=== PATIENT | male | born 1960 | race Caucasian/White ===

== ENCOUNTER 2018-10-11 09:10 | Day surgery (SDC) | payer MEDICARE ==
--- NOTE | 2018-10-08 10:16 | HP ---
DATE OF SURGERY: 10/11/2018 ANTICIPATED PROCEDURE: Colonoscopy. HISTORY OF PRESENT ILLNESS: The patient presents for screening, 58 years old. He had one about 10 years ago that was negative. PAST MEDICAL HISTORY: Hypertension. CVA. Dysphagia. ALLERGIES: NONE. MEDICATIONS: Multiple. SOCIAL HISTORY: Negative. FAMILY HISTORY: Negative. REVIEW OF SYSTEMS: Negative. PHYSICAL EXAMINATION: VITAL SIGNS: Normal. CHEST: Clear. COR: Regular. ABDOMEN: No palpable organomegaly or mass. PLAN: Colonoscopy for screening.
[~2018-10-11 09:10] MED LIST: Lactated Ringers 1,000 ML IV ONE; Lactated Ringers 1,000 ML IV SCH
[2018-10-11] MEDS ORDERED: Ketamine HCl 50 MG/ML IV ONE (09:11)
[2018-10-11] MEDS ORDERED: DIPRIVAN 200 MG/20 ML IV ONE (09:11)
--- NOTE | 2018-10-11 12:38 | OP ---
SURGERY DATE/TIME: 10/11/2018 1142 PREOPERATIVE DIAGNOSIS: Ten year screening. POSTOPERATIVE DIAGNOSIS: One polyp mid sigmoid. PROCEDURE: Colonoscopy complete to cecum with hot polypectomy x1. SURGEON: Isidoro Sosa M.D. ANESTHESIA: MAC - Adolfo Dorado CRNA. COMPLICATIONS: None. CONDITION: Stable. INDICATION: A patient requiring evaluation. DESCRIPTION OF PROCEDURE: Taken to endoscopy. MAC sedation. Excellent anesthesia present. Anal digital examination satisfactory. Prostate satisfactory. Scope advanced to the cecum. Base of cecum, ileocecal valve and appendiceal orifice were all normal. Ascending, hepatic, transverse, splenic, descending, sigmoid. Mid sigmoid 8 mm polyp taken with hot biopsy forceps to extinction. Rectum and anus normal. IMPRESSION: Successful polypectomy x1. PLAN: Follow up three years. He can call for report on his polyp in five days.
[2018-10-11 12:57] VITALS: O2SAT 96
[2018-10-11 14:03] VITALS: BP 141/79; PULSE 76
== END 2018-10-11 14:10 | disposition home or self-care (01) ==
LOC: SDC 09:10
PROVIDERS: ATTEND Surgery
DX: Z12.11 Encounter for screening for malignant neoplasm of colon (principal); K63.5 Polyp of colon
CPT/HCPCS: 88305; J2704

== ENCOUNTER 2019-03-30 22:53 | Observation (INO) | payer MEDICARE ==
[2019-03-30] MEDS ORDERED: Sodium Chloride 0.9% 1000 ML 1,000 ML IV STA (23:02)
[2019-03-30] MEDS ORDERED: Pepcid 20 MG VIAL IV ONE ×2 (23:05→23:10)
[2019-03-30] MEDS ORDERED: Sodium Chloride 0.9% 1000 ML 1,000 ML ONE (23:10)
[2019-03-30 23:19] LABS: BASOPHIL % 0.5 % (0.0-0.4); Basophil (Absolute #) 0.03 (0-0.4); Eosinophil % 1.1 % (0.00-5.0); Eosinophil (Absolute #) 0.07 (0-0.5); Granulocyte Absolute (ANC) 3.66 (1.4-6.9); Granulocytes % 56.9 % (36.0-66.0); Hematocrit 32.5 % (42-50); Hemoglobin 11.1 gm/dl (12.5-18.0); Lymphocytes % 34.3 % (24.0-44.0); Mean Cell Volume 92.1 fl (78-100); Mean Corpuscular Hemoglobin 31.4 pg (26-32); Mean Corpuscular Hgb Concent. 34.2 g/dl (32-36); Mean Platelet Volume 10.8 fl (6-9.5); Monocyte (Absolute #) 0.46 (0.0-1.3); Monocytes % 7.2 % (0.0-12.0); Platelet Count 123 K/mm3 (150-450); Red Blood Count 3.53 M/mm3 (4.1-5.6); Red Cell Distribution Width 14.5 % (11.5-14.0); White Blood Count 6.4 K/mm3 (4.0-10.5)
[2019-03-30 23:31] LABS: ALBUMIN 1.4 g/dL (3.5-5.0); ALKALINE PHOSPHATASE 29 U/L (38-126); AMYLASE 39 U/L (30-110); ANION GAP 5.1 MEQ/L (5-15); BLOOD UREA NITROGEN 4 mg/dL (9-20); CHLORIDE 127 mmol/L (98-107); Creatinine 1 0.26 mg/dL (0.66-1.25); ETHYL ALCOHOL 113 mg/dL (0-10); Glucose 74 mg/dL (74-106); LIPASE 76 U/L (23-300); SGOT/AST 13 U/L (17-59); SGPT/ALT 12 U/L (0-50); SODIUM 141 mmol/L (137-145); Total Protein 3.2 g/dL (6.3-8.2)
[2019-03-30 23:38] LABS: Potassium 1.8 mmol/L (3.5-5.1)
[2019-03-30 23:39] LABS: ACETAMINOPHEN < 10 ug/ml (10-30); Calcium 3.5 mg/dL (8.4-10.2); Carbon Dioxide 10 mmol/L (22-30); SALICYLATE < 1.0 mg/dL (2-20)
--- NOTE | 2019-03-30 23:43 | ERPHSYRPT ---
- History of Present Illness Time Seen by Provider: 03/30/19 23:38 Source: patient, EMS Exam Limitations: clinical condition Patient Subjective Stated Complaint: per ems they were called out for pt passed out on the floor an unresponsive. states pt was awake and alert when they arrived. is intoxicated and vomiting. Triage Nursing Assessment: pt awake and answers questions approp. alert and oriented x3. pt arrive per ambulance and complete assist to stretcher. respirations nonlabored. pt vomiting on arrival. abd nontender with bowel sounds present x4, speech slurred. severe weakness noted to rt side. pt and ems states is his norm after cva. Physician History: pt was passed out after apparent drinking binge today- prior CVA , but pt states now no new weakness or symptoms; no focal deficits that are new on exam - residula right sided weakness from prior CVA; on blood thinner and will need CT head however; Timing/Duration: today Severity: moderate Associated Symptoms: nausea, vomiting Allergies/Adverse Reactions: No Known Drug Allergies Allergy (Verified 03/30/19 23:16) Home Medications: Aspirin EC 325 mg [Ecotrin 325 MG] 325 mg PO DAILY 09/13/15 [History] Acetaminophen [Tylenol Extra Strength] 500 mg PO Q4HPRN PRN 08/31/17 [History] Atorvastatin Calcium [Lipitor] 80 mg PO DAILY 08/31/17 [History] Lisinopril 5 mg [Zestril 5 MG] 5 mg PO DAILY 08/31/17 [History] Sertraline HCl 50 mg [Zoloft 50 mg Tablet] 100 mg PO DAILY 08/31/17 [History ] Tamsulosin HCl 0.4 mg [Flomax 0.4 MG] 0.4 mg PO DAILY 08/31/17 [History] Baclofen 10 mg [Lioresal 10 mg] 10 mg PO TID 03/30/19 [History] Hx Tetanus, Diphtheria Vaccination/Date Given: Yes (2017) Hx Influenza Vaccination/Date Given: No Hx Pneumococcal Vaccination/Date Given: No Immunizations Up to Date: Yes - Review of Systems Constitutional: No Fever, No Chills Eyes: No Symptoms Ears, Nose, & Throat: No Symptoms Respiratory: No Cough, No Dyspnea Cardiac: No Chest Pain, No Edema, No Syncope Abdominal/Gastrointestinal: Nausea, Vomiting, Other (trace positive emesis), No Abdominal Pain, No Diarrhea Genitourinary Symptoms: No Dysuria Musculoskeletal: No Back Pain, No Neck Pain Skin: No Rash Neurological: No Dizziness, No Focal Weakness (old rigth weakness without change - none new ), No Sensory Changes Psychological: Alcohol Abuse Endocrine: No Symptoms Hematologic/Lymphatic: No Symptoms Immunological/Allergic: No Symptoms All Other Systems: Reviewed and Negative - Past Medical History Pertinent Past Medical History: Yes Neurological History: Stroke ENT History: No Pertinent History Cardiac History: High Cholesterol, Hypertension Respiratory History: No Pertinent History Endocrine Medical History: No Pertinent History Musculoskeletal History: Fractures GI Medical History: No Pertinent History History: No Pertinent History Psycho-Social History: No Pertinent History Male Reproductive Disorders: Prostate Problems Other Medical History: REPORTS RHUEMATIC FEVER AND HEPITITIS WHEN HE WAS YOUNG BUT OTHERISE NONSIGNIFICANT. - Past Surgical History Past Surgical History: Yes Neuro Surgical History: No Pertinent History Cardiac: No Pertinent History Respiratory: No Pertinent History Gastrointestinal: No Pertinent History Genitourinary: No Pertinent History Musculoskeletal: Orthopedic Surgery Male Surgical History: No Pertinent History Other Surgical History: Colonoscopy - Social History Smoking Status: Current every day smoker How long have you smoked: 30 years Exposure to second hand smoke: Yes Drug Use: none Patient Lives Alone: Yes - Nursing Vital Signs Nursing Vital Signs: Initial Vital Signs Temperature 98.1 F 03/30/19 22:59 Pulse Rate 81 03/30/19 22:59 Respiratory Rate 18 03/30/19 22:59 Blood Pressure 127/89 03/30/19 22:59 O2 Sat by Pulse Oximetry 94 L 03/30/19 22:59 Pain Scale Pain Intensity 0 - Physical Exam General Appearance: no apparent distress, alert Eye Exam: PERRL/EOMI, eyes nml inspection Ears, Nose, Throat Exam: normal ENT inspection, TMs normal, pharynx normal, moist mucous membranes Neck Exam: normal inspection, non-tender, supple, full range of motion Respiratory Exam: normal breath sounds, lungs clear, No respiratory distress Cardiovascular Exam: regular rate/rhythm, normal heart sounds, normal peripheral pulses Gastrointestinal/Abdomen Exam: soft, normal bowel sounds, No tenderness, No mass Rectal Exam: deferred Back Exam: normal inspection, normal range of motion, No CVA tenderness, No vertebral tenderness Extremity Exam: normal inspection, normal range of motion, pelvis stable Neurologic Exam: alert, oriented x 3, cooperative, normal mood/affect, nml cerebellar function, nml station & gait, sensation nml, No motor deficits Skin Exam: normal color, warm, dry, No rash Lymphatic Exam: No adenopathy SpO2: 94 - Course Nursing assessment & vital signs reviewed: Yes EKG Interpreted by Me: Sinus Rhythm, NORMAL AXIS, NORMAL INTERVALS, Non- specific ST Changes - CT Exams Head CT Interpretation: Tele-radiologist Report, No/Intracranial Hemorrhag, Old Stroke, Other Ordered Tests: Active Orders 24 hr Category Date Time Status Clean Catch Urine Specimen STAT Care 03/30/19 23:02 Active EKG-ER Only STAT Care 03/30/19 23:02 Active IV Insertion STAT Care 03/30/19 23:09 Active Pulse Oximetry (ED) STAT Care 03/30/19 23:02 Active HEAD WITHOUT CONTRAST [CT] Stat Exams 03/30/19 23:01 Taken ACETAMINOPHEN Stat Lab 03/30/19 23:13 Completed AMYLASE Stat Lab 03/30/19 23:13 Completed CBC W DIFF Stat Lab 03/30/19 23:13 Completed CMP Stat Lab 03/30/19 23:13 Completed ETHYL ALCOHOL Stat Lab 03/30/19 23:13 Completed LIPASE Stat Lab 03/30/19 23:13 Completed Lactic Acid Stat Lab 03/30/19 23:11 Completed OCCULT BLOOD, EMESIS Stat Lab 03/30/19 23:09 Completed SALICYLATE Stat Lab 03/30/19 23:13 Completed TROPONIN Q3H Lab 03/30/19 23:13 Completed TROPONIN Q3H Lab 03/31/19 02:15 Ordered TROPONIN Q3H Lab 03/31/19 05:15 Ordered TROPONIN Q3H Lab 03/31/19 08:15 Ordered TROPONIN Q3H Lab 03/31/19 11:15 Ordered UA W/RFX UR CULTURE Stat Lab 03/31/19 02:12 Received Urine Triage Profile Stat Lab 03/31/19 02:12 Received Medication Summary Generic Name Dose Route Start Last Admin Trade Name Freq PRN Reason Stop Dose Admin Potassium Chloride 20 meq in 100 mls @ 50 mls/hr 03/30/19 23:45 03/31/19 00: 36 Potassium Chloride 20 Meq In Water 100ml IV 03/31/19 03:44 50 mls/hr Q2H SHERRI Administration Discontinued Medications Generic Name Dose Route Start Last Admin Trade Name Katerine PRN Reason Stop Dose Admin Famotidine 20 mg 03/30/19 23:05 03/30/19 23:14 Pepcid 20 Mg Vial IV 03/30/19 23:06 20 mg STAT ONE Administration Famotidine Confirm 03/30/19 23:10 Pepcid 20 Mg Vial Administered 03/30/19 23:11 Dose 20 mg IV .STK-MED ONE Sodium Chloride 1,000 mls @ 999 mls/hr 03/30/19 23:02 03/31/19 00:40 Sodium Chloride 0.9% 1000 Ml IV 03/31/19 00:02 Infused .Q1H1M STA Infusion Sodium Chloride Confirm 03/30/19 23:10 Sodium Chloride 0.9% 1000 Ml Administered 03/30/19 23:11 Dose 1,000 mls @ ud .ROUTE .STK-MED ONE Sodium Chloride Confirm 03/31/19 00:28 Sodium Chloride 0.9% 1000 Ml Administered 03/31/19 00:29 Dose 1,000 mls @ ud .ROUTE .STK-MED ONE Lab/Rad Data: Laboratory Result Diagrams 03/30/19 23:13 03/30/19 23:13 Laboratory Results 03/30/19 03/30/19 03/30/19 Range/Units 23:13 23:13 23:13 WBC 6.4 (4.0-10.5) K/mm3 RBC 3.53 L (4.1-5.6) M/mm3 Hgb 11.1 L (12.5-18.0) gm/dl Hct 32.5 L (42-50) % MCV 92.1 (78-100) fl MCH 31.4 (26-32) pg MCHC 34.2 (32-36) g/dl RDW 14.5 H (11.5-14.0) % Plt Count 123 L (150-450) K/mm3 MPV 10.8 H (6-9.5) fl Gran % 56.9 (36.0-66.0) % Eos # (Auto) 0.07 (0-0.5) Absolute Lymphs (auto) 2.20 (1.0-4.6) Absolute Monos (auto) 0.46 (0.0-1.3) Lymphocytes % 34.3 (24.0-44.0) % Monocytes % 7.2 (0.0-12.0) % Eosinophils % 1.1 (0.00-5.0) % Basophils % 0.5 (0.0-0.4) % Absolute Granulocytes 3.66 (1.4-6.9) Basophils # 0.03 (0-0.4) Sodium 141 (137-145) mmol/L Potassium 1.8 L* (3.5-5.1) mmol/L Chloride 127 H (98-107) mmol/L Carbon Dioxide 10 L* (22-30) mmol/L Anion Gap 5.1 (5-15) MEQ/L BUN 4 L (9-20) mg/dL Creatinine 0.26 L (0.66-1.25) mg/dL Estimated GFR > 60.0 ML/MIN Glucose 74 (74-106) mg/dL Lactic Acid (0.4-2.0) Calcium 3.5 L* (8.4-10.2) mg/dL Total Bilirubin 0.20 (0.2-1.3) mg/dL AST 13 L (17-59) U/L ALT 12 (0-50) U/L Alkaline Phosphatase 29 L (38-126) U/L Troponin I < 0.012 (0.000-0.034) ng/mL Serum Total Protein 3.2 L (6.3-8.2) g/dL Albumin 1.4 L (3.5-5.0) g/dL Amylase 39 (30-110) U/L Lipase 76 (23-300) U/L Emesis for Blood (Negative) Salicylates < 1.0 L (2-20) mg/dL Acetaminophen < 10 L (10-30) ug/ml Ethyl Alcohol 113 H (0-10) mg/dL 03/30/19 03/30/19 Range/Units 23:11 23:09 WBC (4.0-10.5) K/mm3 RBC (4.1-5.6) M/mm3 Hgb (12.5-18.0) gm/dl Hct (42-50) % MCV (78-100) fl MCH (26-32) pg MCHC (32-36) g/dl RDW (11.5-14.0) % Plt Count (150-450) K/mm3 MPV (6-9.5) fl Gran % (36.0-66.0) % Eos # (Auto) (0-0.5) Absolute Lymphs (auto) (1.0-4.6) Absolute Monos (auto) (0.0-1.3) Lymphocytes % (24.0-44.0) % Monocytes % (0.0-12.0) % Eosinophils % (0.00-5.0) % Basophils % (0.0-0.4) % Absolute Granulocytes (1.4-6.9) Basophils # (0-0.4) Sodium (137-145) mmol/L Potassium (3.5-5.1) mmol/L Chloride (98-107) mmol/L Carbon Dioxide (22-30) mmol/L Anion Gap (5-15) MEQ/L BUN (9-20) mg/dL Creatinine (0.66-1.25) mg/dL Estimated GFR ML/MIN Glucose (74-106) mg/dL Lactic Acid 1.7 (0.4-2.0) Calcium (8.4-10.2) mg/dL Total Bilirubin (0.2-1.3) mg/dL AST (17-59) U/L ALT (0-50) U/L Alkaline Phosphatase (38-126) U/L Troponin I (0.000-0.034) ng/mL Serum Total Protein (6.3-8.2) g/dL Albumin (3.5-5.0) g/dL Amylase (30-110) U/L Lipase (23-300) U/L Emesis for Blood POSITIVE (Negative) Salicylates (2-20) mg/dL Acetaminophen (10-30) ug/ml Ethyl Alcohol (0-10) mg/dL - Progress Progress: improved, re-examined Progress Note: 03/31/19 02:[address] Sosa and pt and all agree best to come in and have K restored ; also to control vomiting and monitor for GI bleed Discussed with : Sheila Will see patient in: hospital (observation) Counseled pt/family regarding: lab results, diagnosis, need for follow-up, rad results - Departure Departure Disposition: Observation Clinical Impression: Hypokalemia due to excessive gastrointestinal loss of potassium, minor GI bleed , Alcohol intoxication, old CVA Condition: Good Critical Care Time: No Referrals: SUZI PARSONS [Primary Care Provider] -
[2019-03-31] MEDS ORDERED: POTASSIUM CHLORIDE 20 mEq IN WATER 100ML 100 ML IV ONE ×2 (00:27→02:23)
[2019-03-31] MEDS ORDERED: Sodium Chloride 0.9% 1000 ML 1,000 ML ONE (00:28)
[2019-03-31] MEDS: POTASSIUM CHLORIDE 20 mEq IN WATER 100ML 20 MEQ/100 ML BAG IV SCH ×2 (00:36→02:24)
[2019-03-31 02:34] LABS: Amphetamine,Urine NEGATIVE (NEGATIVE); Barbiturate,Urine NEGATIVE (NEGATIVE); Benzodiazepine,Urine NEGATIVE (NEGATIVE); Cocaine,Urine NEGATIVE (NEGATIVE); Methadone,Urine NEGATIVE (NEGATIVE); Opiate,Urine NEGATIVE (NEGATIVE); PCP,Urine NEGATIVE (NEGATIVE); THC,Urine POSITIVE (NEGATIVE)
[2019-03-31 03:09] LABS: Appearance CLEAR (CLEAR); Bilirubin NEGATIVE (NEGATIVE); Blood NEGATIVE Ery/ul (0-5); Glucose NEGATIVE (NEGATIVE); Hyaline Casts 0-2 /LPF (0-2); Ketones NEGATIVE (NEGATIVE); Leukocyte Esterase NEGATIVE (NEGATIVE); Mucus SLIGHT /HPF (NEGATIVE); Nitrite NEGATIVE (NEGATIVE); Protein,Urine Dip NEGATIVE (Negative); Specific Gravity 1.005 (1.005-1.025); Urobilinogen NEGATIVE mg/dL (0-1)
[2019-03-31 03:12] LABS: Bacteria NONE SEEN /HPF (NEGATIVE); RBC NONE SEEN /HPF (0-2)
[2019-03-31] MEDS ORDERED: DILAUDID 2 MG INJECTION IV PRN (04:25)
[2019-03-31] MEDS ORDERED: Zofran 4 MG/2 ML VIAL IV PRN (04:25)
[2019-03-31] MEDS ORDERED: NovoLIN R SQ PRN (04:25)
[2019-03-31] MEDS ORDERED: Phenergan 25 MG INJ IM PRN (04:25)
[2019-03-31] MEDS ORDERED: TYLENOL 325 MG PO PRN (04:25)
[2019-03-31] MEDS ORDERED: DUONEB 0.5-3 MG/3 ml Neb IH PRN ×2 (04:25→05:01)
[2019-03-31] MEDS ORDERED: K-LYTE 25 MEQ PO ONE (04:25)
[2019-03-31] MEDS ORDERED: POTASSIUM CHLORIDE 20 mEq IN WATER 100ML 20 MEQ/100 ML BAG IV ONE (04:25)
--- NOTE | 2019-03-31 07:12 | XRAY ---
Indication: Loss of consciousness with fall. Multiple contiguous axial images obtained through the head without contrast. Comparison: September 13, 2015. Stable large left frontoparietal old infarct. No acute intracranial hemorrhage, hydrocephalus, or mass effect. Bony calvarium intact. Minimal mucosal thickening both ethmoid sinuses, left greater than right. Mastoid air cells are clear. Impression: 1. Stable old left frontoparietal infarct. 2. No acute intracranial abnormalities. 3. Minimal paranasal sinus disease. Comment: Preliminary interpretation was made by [facility]. No discrepancy. CTDI 45.41
[2019-03-31] MEDS: Pepcid 20 MG VIAL IV SCH ×2 (10:48→21:19)
[2019-03-31] MEDS: PROTONIX 40 MG IV IV SCH (10:50)
[2019-03-31] MEDS ORDERED: LIORESAL 10 MG PO PRN (11:00)
[2019-03-31] MEDS: Sodium Chloride 0.9% 1000 ML 1,000 ML IV SCH ×2 (11:14→21:37)
[2019-03-31] MEDS: ZOCOR 20MG PO SCH (11:28)
[2019-03-31] MEDS: ZOLOFT 50 MG TABLET PO SCH (11:28)
[2019-03-31] MEDS: Flomax 0.4 MG PO SCH (11:29)
[2019-03-31] MEDS: Zestril 5 MG PO SCH (11:29)
[2019-03-31] MEDS: ROCEPHIN 1 Gm-D5w 50 ml Bag** 1 G/50 ML IVPB IV SCH (13:06)
[2019-03-31] MEDS: Zithromax 250 MG TABLET PO SCH (13:06)
--- NOTE | 2019-03-31 14:38 | PCM.HP ---
History of Present Illness - Chief Complaint Chief Complaint: Mild GI bleed w/vomiting, alcohol overuse, hypokalemia History of Present Illness: is a very pleasant 58 year old male pt of Dr. Monet with PMHx CVA, HTN, and tobacco abuse who was brought to ER last night by EMS. Per the ER note , they were called for an unresponsive pt. He was awake however when they came to evaluate him. He was found intoxicated and vomiting. He also vomited in the ER and his brown vomitus was tested and found to be heme-positive. His alcohol level was 110 (nl 0-10) and his initial potassium was 1.8 (now 4.3). His platelets in ER were 123. Hgb 11.1. Pt tells me he remembers last night, that he "fell down" after drinking 4-5 "tall boys" (larger sized beers). He said he drinks about once a week but last night drank more than usual. He denies vomiting since coming to med surg. He states he's been sick the past 3d with vomiting and diarrhea, unsure about fever. He c/o periumbilical abd pain, 7-8/10, non radiating, which he can't characterize. It is constant. He took nyquil with some relief. This morning he is feeling better. He had a 10 year screening colonoscopy in October [address] Sosa, which resulted in polypectomy x 1. - Review of Systems Constitutional: Fatigue, No Fever (pt is unsure) Respiratory: Cough (prod x 3-4d), No Short Of Breath Cardiac: Edema (RLE edema chronic), No Chest Pain Abdominal/Gastrointestinal: Abdominal Pain, Vomiting, Diarrhea (x3d), No Hematochezia, No Melena Genitourinary Symptoms: No Dysuria, No Hematuria Neurological: Dizziness (occ), Other (syncope) Psychological: Depression (chronic d/t CVA with R sided deficit), No Anxiety, No Suicidal Ideations, No Homicidal Ideations All Other Systems: Reviewed and Negative Medications & Allergies Home Medications: Home Medication List Atorvastatin Calcium [Lipitor] 80 mg PO DAILY 08/31/17 [History Confirmed ] Lisinopril 5 mg [Zestril 5 MG] 5 mg PO DAILY 08/31/17 [History Confirmed 03/30/19] Sertraline HCl 50 mg [Zoloft 50 mg Tablet] 100 mg PO DAILY 08/31/17 [ History Confirmed 03/30/19] Tamsulosin HCl 0.4 mg [Flomax 0.4 MG] 0.4 mg PO DAILY 08/31/17 [History Confirmed 03/30/19] Baclofen 10 mg [Lioresal 10 mg] 10 mg PO TID 03/30/19 [History Confirmed 03/30/19] Allergies/Adverse Reactions: Allergies Allergy/AdvReac Type Severity Reaction Status Date / Time No Known Drug Allergies Allergy Verified 03/30/19 23:16 - Past Medical History Past Medical History: Yes Neurological History: Stroke ENT History: No Pertinent History Cardiac History: High Cholesterol, Hypertension Respiratory History: No Pertinent History Endocrine Medical History: No Pertinent History Musculoskelatal History: Fractures GI Medical History: No Pertinent History History: No Pertinent History Pyscho-Social History: No Pertinent History Male Reproductive Disorders: Prostate Problems Comment: REPORTS RHUEMATIC FEVER AND HEPITITIS WHEN HE WAS YOUNG BUT OTHERISE NONSIGNIFICANT. - Past Surgical History Past Surgical History: Yes Neuro Surgical History: No Pertinent History Cardiac History: No Pertinent History Respiratory Surgery: No Pertinent History GI Surgical History: No Pertinent History Genitourinary Surgical Hx: No Pertinent History Musculskeletal Surgical Hx: Orthopedic Surgery Male Surgical History: No Pertinent History Other Surgical History: Colonoscopy - Social History Smoking Status: Current every day smoker How long have you smoked: 30 years Exposure to second hand smoke: Yes Alcohol: Occasionally, Weekly Drug Use: marijuana - Physical Exam Vital Signs: Vital Signs - 24 hr Temp Pulse Resp BP Pulse Ox 03/31/19 12:00 98.3 F 93 H 20 120/78 94 L 03/31/19 08:00 98.2 F 93 H 20 118/74 93 L 03/31/19 07:00 101 H 16 95 03/31/19 05:28 97.5 F 84 20 117/77 95 03/31/19 05:15 95 03/31/19 05:07 88 20 95 03/31/19 04:25 95 03/31/19 04:04 94 H 18 101/77 95 03/31/19 03:04 91 H 16 124/82 94 L 03/31/19 02:17 94 L 03/30/19 23:09 94 L 03/30/19 22:59 98.1 F 81 18 127/89 94 L General Appearance: no apparent distress, alert, obese Neurologic Exam: oriented x 3, cooperative, normal mood/affect Eye Exam: eyes nml inspection Ears, Nose, Throat Exam: moist mucous membranes Neck Exam: normal inspection, non-tender, No lymphadenopathy Respiratory Exam: diminished breath sounds, prolonged expirations, No crackles/ rales, No rhonchi, No wheezing Cardiovascular Exam: normal heart sounds, irregular, No murmur Gastrointestinal/Abdomen Exam: soft, tenderness (suprapubic), No normal bowel sounds (hyperactive), No mass, No guarding, No rebound Back Exam: normal inspection, No rash Extremity Exam: No pedal edema, No swelling Skin Exam: warm, dry, other (face with generalized erythema), No rash Results - Labs Lab/Micro Results: Lab Results-Last 24 Hours 03/30/19 03/30/19 03/30/19 Range/Units 23:09 23:11 23:13 WBC 6.4 (4.0-10.5) K/mm3 RBC 3.53 L (4.1-5.6) M/mm3 Hgb 11.1 L (12.5-18.0) gm/dl Hct 32.5 L (42-50) % MCV 92.1 (78-100) fl MCH 31.4 (26-32) pg MCHC 34.2 (32-36) g/dl RDW 14.5 H (11.5-14.0) % Plt Count 123 L (150-450) K/mm3 MPV 10.8 H (6-9.5) fl Gran % 56.9 (36.0-66.0) % Eos # (Auto) 0.07 (0-0.5) Absolute Lymphs (auto) 2.20 (1.0-4.6) Absolute Monos (auto) 0.46 (0.0-1.3) Lymphocytes % 34.3 (24.0-44.0) % Monocytes % 7.2 (0.0-12.0) % Eosinophils % 1.1 (0.00-5.0) % Basophils % 0.5 (0.0-0.4) % Absolute Granulocytes 3.66 (1.4-6.9) Basophils # 0.03 (0-0.4) Sodium (137-145) mmol/L Potassium (3.5-5.1) mmol/L Chloride (98-107) mmol/L Carbon Dioxide (22-30) mmol/L Anion Gap (5-15) MEQ/L BUN (9-20) mg/dL Creatinine (0.66-1.25) mg/dL Estimated GFR ML/MIN Glucose (74-106) mg/dL Lactic Acid 1.7 (0.4-2.0) Calcium (8.4-10.2) mg/dL Total Bilirubin (0.2-1.3) mg/dL AST (17-59) U/L ALT (0-50) U/L Alkaline Phosphatase (38-126) U/L Troponin I (0.000-0.034) ng/mL Serum Total Protein (6.3-8.2) g/dL Albumin (3.5-5.0) g/dL Amylase (30-110) U/L Lipase (23-300) U/L Urine Color (YELLOW) Urine Appearance (CLEAR) Urine pH (5-6) Ur Specific [place] (1.005-1.025) Urine Protein (Negative) Urine Ketones (NEGATIVE) Urine Blood (0-5) Cali/ul Urine Nitrite (NEGATIVE) Urine Bilirubin (NEGATIVE) Urine Urobilinogen (0-1) mg/dL Ur Leukocyte Esterase (NEGATIVE) Urine WBC (Auto) (0-5) /HPF Urine RBC (Auto) (0-2) /HPF U Hyaline Cast (Auto) (0-2) /LPF U Epithel Cells (Auto) (FEW) /HPF Urine Bacteria (Auto) (NEGATIVE) /HPF Other Casts (Auto) (NEGATIVE) /LPF Urine Mucus (Auto) (NEGATIVE) /HPF Urine Culture Reflexed (NO) Urine Glucose (NEGATIVE) mg/dL Emesis for Blood POSITIVE (Negative) Salicylates (2-20) mg/dL Urine Opiates Level (NEGATIVE) Ur Methadone (NEGATIVE) Acetaminophen (10-30) ug/ml Urine Barbiturates (NEGATIVE) Ur Phencyclidine (PCP) (NEGATIVE) Urine Amphetamine (NEGATIVE) U Benzodiazepine Level (NEGATIVE) Urine Cocaine (NEGATIVE) Urine Marijuana (THC) (NEGATIVE) Ethyl Alcohol (0-10) mg/dL 03/30/19 03/30/19 03/31/19 Range/Units 23:13 23:13 02:12 WBC (4.0-10.5) K/mm3 RBC (4.1-5.6) M/mm3 Hgb (12.5-18.0) gm/dl Hct (42-50) % MCV (78-100) fl MCH (26-32) pg MCHC (32-36) g/dl RDW (11.5-14.0) % Plt Count (150-450) K/mm3 MPV (6-9.5) fl Gran % (36.0-66.0) % Eos # (Auto) (0-0.5) Absolute Lymphs (auto) (1.0-4.6) Absolute Monos (auto) (0.0-1.3) Lymphocytes % (24.0-44.0) % Monocytes % (0.0-12.0) % Eosinophils % (0.00-5.0) % Basophils % (0.0-0.4) % Absolute Granulocytes (1.4-6.9) Basophils # (0-0.4) Sodium 141 (137-145) mmol/L Potassium 1.8 L* (3.5-5.1) mmol/L Chloride 127 H (98-107) mmol/L Carbon Dioxide 10 L* (22-30) mmol/L Anion Gap 5.1 (5-15) MEQ/L BUN 4 L (9-20) mg/dL Creatinine 0.26 L (0.66-1.25) mg/dL Estimated GFR > 60.0 ML/MIN Glucose 74 (74-106) mg/dL Lactic Acid (0.4-2.0) Calcium 3.5 L* (8.4-10.2) mg/dL Total Bilirubin 0.20 (0.2-1.3) mg/dL AST 13 L (17-59) U/L ALT 12 (0-50) U/L Alkaline Phosphatase 29 L (38-126) U/L Troponin I < 0.012 (0.000-0.034) ng/mL Serum Total Protein 3.2 L (6.3-8.2) g/dL Albumin 1.4 L (3.5-5.0) g/dL Amylase 39 (30-110) U/L Lipase 76 (23-300) U/L Urine Color STRAW (YELLOW) Urine Appearance CLEAR (CLEAR) Urine pH 5.0 (5-6) Ur Specific [place] 1.005 (1.005-1.025) Urine Protein NEGATIVE (Negative) Urine Ketones NEGATIVE (NEGATIVE) Urine Blood NEGATIVE (0-5) [place]/ul Urine Nitrite NEGATIVE (NEGATIVE) Urine Bilirubin NEGATIVE (NEGATIVE) Urine Urobilinogen NEGATIVE (0-1) mg/dL Ur Leukocyte Esterase NEGATIVE (NEGATIVE) Urine WBC (Auto) NONE (0-5) /HPF Urine RBC (Auto) NONE SEEN (0-2) /HPF U Hyaline Cast (Auto) 0-2 (0-2) /LPF U Epithel Cells (Auto) NONE (FEW) /HPF Urine Bacteria (Auto) NONE SEEN (NEGATIVE) /HPF Other Casts (Auto) NEGATIVE (NEGATIVE) /LPF Urine Mucus (Auto) SLIGHT (NEGATIVE) /HPF Urine Culture Reflexed NO (NO) Urine Glucose NEGATIVE (NEGATIVE) mg/dL Emesis for Blood (Negative) Salicylates < 1.0 L (2-20) mg/dL Urine Opiates Level (NEGATIVE) Ur Methadone (NEGATIVE) Acetaminophen < 10 L (10-30) ug/ml Urine Barbiturates (NEGATIVE) Ur Phencyclidine (PCP) (NEGATIVE) Urine Amphetamine (NEGATIVE) U Benzodiazepine Level (NEGATIVE) Urine Cocaine (NEGATIVE) Urine Marijuana (THC) (NEGATIVE) Ethyl Alcohol 113 H (0-10) mg/dL 03/31/19 03/31/19 03/31/19 Range/Units 02:12 02:27 06:30 WBC (4.0-10.5) K/mm3 RBC (4.1-5.6) M/mm3 Hgb (12.5-18.0) gm/dl Hct (42-50) % MCV (78-100) fl MCH (26-32) pg MCHC (32-36) g/dl RDW (11.5-14.0) % Plt Count (150-450) K/mm3 MPV (6-9.5) fl Gran % (36.0-66.0) % Eos # (Auto) (0-0.5) Absolute Lymphs (auto) (1.0-4.6) Absolute Monos (auto) (0.0-1.3) Lymphocytes % (24.0-44.0) % Monocytes % (0.0-12.0) % Eosinophils % (0.00-5.0) % Basophils % (0.0-0.4) % Absolute Granulocytes (1.4-6.9) Basophils # (0-0.4) Sodium (137-145) mmol/L Potassium (3.5-5.1) mmol/L Chloride (98-107) mmol/L Carbon Dioxide (22-30) mmol/L Anion Gap (5-15) MEQ/L BUN (9-20) mg/dL Creatinine (0.66-1.25) mg/dL Estimated GFR ML/MIN Glucose (74-106) mg/dL Lactic Acid (0.4-2.0) Calcium (8.4-10.2) mg/dL Total Bilirubin (0.2-1.3) mg/dL AST (17-59) U/L ALT (0-50) U/L Alkaline Phosphatase (38-126) U/L Troponin I < 0.012 < 0.012 (0.000-0.034) ng/mL Serum Total Protein (6.3-8.2) g/dL Albumin (3.5-5.0) g/dL Amylase (30-110) U/L Lipase (23-300) U/L Urine Color (YELLOW) Urine Appearance (CLEAR) Urine pH (5-6) Ur Specific [place] (1.005-1.025) Urine Protein (Negative) Urine Ketones (NEGATIVE) Urine Blood (0-5) [place]/ul Urine Nitrite (NEGATIVE) Urine Bilirubin (NEGATIVE) Urine Urobilinogen (0-1) mg/dL Ur Leukocyte Esterase (NEGATIVE) Urine WBC (Auto) (0-5) /HPF Urine RBC (Auto) (0-2) /HPF U Hyaline Cast (Auto) (0-2) /LPF U Epithel Cells (Auto) (FEW) /HPF Urine Bacteria (Auto) (NEGATIVE) /HPF Other Casts (Auto) (NEGATIVE) /LPF Urine Mucus (Auto) (NEGATIVE) /HPF Urine Culture Reflexed (NO) Urine Glucose (NEGATIVE) mg/dL Emesis for Blood (Negative) Salicylates (2-20) mg/dL Urine Opiates Level NEGATIVE (NEGATIVE) Ur Methadone NEGATIVE (NEGATIVE) Acetaminophen (10-30) ug/ml Urine Barbiturates NEGATIVE (NEGATIVE) Ur Phencyclidine (PCP) NEGATIVE (NEGATIVE) Urine Amphetamine NEGATIVE (NEGATIVE) U Benzodiazepine Level NEGATIVE (NEGATIVE) Urine Cocaine NEGATIVE (NEGATIVE) Urine Marijuana (THC) POSITIVE (NEGATIVE) Ethyl Alcohol (0-10) mg/dL 03/31/19 03/31/19 03/31/19 Range/Units 06:30 08:40 11:40 WBC (4.0-10.5) K/mm3 RBC (4.1-5.6) M/mm3 Hgb (12.5-18.0) gm/dl Hct (42-50) % MCV (78-100) fl MCH (26-32) pg MCHC (32-36) g/dl RDW (11.5-14.0) % Plt Count (150-450) K/mm3 MPV (6-9.5) fl Gran % (36.0-66.0) % Eos # (Auto) (0-0.5) Absolute Lymphs (auto) (1.0-4.6) Absolute Monos (auto) (0.0-1.3) Lymphocytes % (24.0-44.0) % Monocytes % (0.0-12.0) % Eosinophils % (0.00-5.0) % Basophils % (0.0-0.4) % Absolute Granulocytes (1.4-6.9) Basophils # (0-0.4) Sodium (137-145) mmol/L Potassium 4.3 D (3.5-5.1) mmol/L Chloride (98-107) mmol/L Carbon Dioxide (22-30) mmol/L Anion Gap (5-15) MEQ/L BUN (9-20) mg/dL Creatinine (0.66-1.25) mg/dL Estimated GFR ML/MIN Glucose (74-106) mg/dL Lactic Acid (0.4-2.0) Calcium (8.4-10.2) mg/dL Total Bilirubin (0.2-1.3) mg/dL AST (17-59) U/L ALT (0-50) U/L Alkaline Phosphatase (38-126) U/L Troponin I < 0.012 < 0.012 (0.000-0.034) ng/mL Serum Total Protein (6.3-8.2) g/dL Albumin (3.5-5.0) g/dL Amylase (30-110) U/L Lipase (23-300) U/L Urine Color (YELLOW) Urine Appearance (CLEAR) Urine pH (5-6) Ur Specific [place] (1.005-1.025) Urine Protein (Negative) Urine Ketones (NEGATIVE) Urine Blood (0-5) [place]/ul Urine Nitrite (NEGATIVE) Urine Bilirubin (NEGATIVE) Urine Urobilinogen (0-1) mg/dL Ur Leukocyte Esterase (NEGATIVE) Urine WBC (Auto) (0-5) /HPF Urine RBC (Auto) (0-2) /HPF U Hyaline Cast (Auto) (0-2) /LPF U Epithel Cells (Auto) (FEW) /HPF Urine Bacteria (Auto) (NEGATIVE) /HPF Other Casts (Auto) (NEGATIVE) /LPF Urine Mucus (Auto) (NEGATIVE) /HPF Urine Culture Reflexed (NO) Urine Glucose (NEGATIVE) mg/dL Emesis for Blood (Negative) Salicylates (2-20) mg/dL Urine Opiates Level (NEGATIVE) Ur Methadone (NEGATIVE) Acetaminophen (10-30) ug/ml Urine Barbiturates (NEGATIVE) Ur Phencyclidine (PCP) (NEGATIVE) Urine Amphetamine (NEGATIVE) U Benzodiazepine Level (NEGATIVE) Urine Cocaine (NEGATIVE) Urine Marijuana (THC) (NEGATIVE) Ethyl Alcohol (0-10) mg/dL 03/31/19 Range/Units 12:12 WBC (4.0-10.5) K/mm3 RBC (4.1-5.6) M/mm3 Hgb (12.5-18.0) gm/dl Hct (42-50) % MCV (78-100) fl MCH (26-32) pg MCHC (32-36) g/dl RDW (11.5-14.0) % Plt Count (150-450) K/mm3 MPV (6-9.5) fl Gran % (36.0-66.0) % Eos # (Auto) (0-0.5) Absolute Lymphs (auto) (1.0-4.6) Absolute Monos (auto) (0.0-1.3) Lymphocytes % (24.0-44.0) % Monocytes % (0.0-12.0) % Eosinophils % (0.00-5.0) % Basophils % (0.0-0.4) % Absolute Granulocytes (1.4-6.9) Basophils # (0-0.4) Sodium (137-145) mmol/L Potassium (3.5-5.1) mmol/L Chloride (98-107) mmol/L Carbon Dioxide (22-30) mmol/L Anion Gap (5-15) MEQ/L BUN (9-20) mg/dL Creatinine (0.66-1.25) mg/dL Estimated GFR ML/MIN Glucose (74-106) mg/dL Lactic Acid (0.4-2.0) Calcium (8.4-10.2) mg/dL Total Bilirubin (0.2-1.3) mg/dL AST (17-59) U/L ALT (0-50) U/L Alkaline Phosphatase (38-126) U/L Troponin I (0.000-0.034) ng/mL Serum Total Protein (6.3-8.2) g/dL Albumin (3.5-5.0) g/dL Amylase (30-110) U/L Lipase (23-300) U/L Urine Color (YELLOW) Urine Appearance (CLEAR) Urine pH (5-6) Ur Specific [place] (1.005-1.025) Urine Protein (Negative) Urine Ketones (NEGATIVE) Urine Blood (0-5) [place]/ul Urine Nitrite (NEGATIVE) Urine Bilirubin (NEGATIVE) Urine Urobilinogen (0-1) mg/dL Ur Leukocyte Esterase (NEGATIVE) Urine WBC (Auto) (0-5) /HPF Urine RBC (Auto) (0-2) /HPF U Hyaline Cast (Auto) (0-2) /LPF U Epithel Cells (Auto) (FEW) /HPF Urine Bacteria (Auto) (NEGATIVE) /HPF Other Casts (Auto) (NEGATIVE) /LPF Urine Mucus (Auto) (NEGATIVE) /HPF Urine Culture Reflexed (NO) Urine Glucose (NEGATIVE) mg/dL Emesis for Blood (Negative) Salicylates (2-20) mg/dL Urine Opiates Level (NEGATIVE) Ur Methadone (NEGATIVE) Acetaminophen (10-30) ug/ml Urine Barbiturates (NEGATIVE) Ur Phencyclidine (PCP) (NEGATIVE) Urine Amphetamine (NEGATIVE) U Benzodiazepine Level (NEGATIVE) Urine Cocaine (NEGATIVE) Urine Marijuana (THC) (NEGATIVE) Ethyl Alcohol < 10 (0-10) mg/dL - Radiology Impressions Radiology Exams & Impressions: Radiology Procedures Category Date Time Status HEAD WITHOUT CONTRAST [CT] Stat Exams 03/30/19 23:01 Completed - Other Procedures and Tests Respiratory Therapy 03/31/19 05:03 Respiratory Therapy Assessment DAILY Assessment/Plan (1) GI bleed Current Visit: Yes Status: Acute Qualifiers: GI bleed type/associated pathology: gastritis Gastritis type: alcoholic Qualified Code(s): K29.21 - Alcoholic gastritis with bleeding Assessment & Plan: Likely just mild alcoholic gastritis, but we did discuss the possibility of varices and GI bleeding that could end in . He did agree to the EGD tomorrow and I have contacted Dr. Stone. On IV protonix. No more vomiting/ bleeding since he was in the ER. Code(s): K92.2 - GASTROINTESTINAL HEMORRHAGE, UNSPECIFIED (2) COPD exacerbation Current Visit: Yes Status: Acute Assessment & Plan: Started IV rocephin and zithromax (day #1). Code(s): J44.1 - CHRONIC OBSTRUCTIVE PULMONARY DISEASE W (ACUTE) EXACERBATION (3) Diarrhea Current Visit: Yes Status: Acute Qualifiers: Diarrhea type: unspecified type Qualified Code(s): R19.7 - Diarrhea, unspecified Assessment & Plan: ordered GI panel. Code(s): R19.7 - DIARRHEA, UNSPECIFIED (4) Alcohol intoxication Current Visit: Yes Status: Acute Qualifiers: Complication of substance-induced condition: uncomplicated Qualified Code(s ): F10.920 - Alcohol use, unspecified with intoxication, uncomplicated Assessment & Plan: rechecking alcohol level. I also consulted [facility], because when the alcohol use is enough to send the pt to the hospital, it's a problem that they may want help with. (5) Hypokalemia due to excessive gastrointestinal loss of potassium Current Visit: Yes Status: Acute Assessment & Plan: corrected. Code(s): E87.6 - HYPOKALEMIA (6) History of CVA (cerebrovascular accident) Current Visit: Yes Status: Chronic Code(s): Z86.73 - PRSNL HX OF TIA (TIA), AND CEREB INFRC W/O RESID DEFICITS
[2019-04-01] MEDS: Lactated Ringers 1,000 ML IV SCH ×2 (05:29→17:16)
[2019-04-01 05:41] LABS: BASOPHIL % 0.4 % (0.0-0.4); Basophil (Absolute #) 0.03 (0-0.4); Eosinophil % 1.9 % (0.00-5.0); Eosinophil (Absolute #) 0.13 (0-0.5); Granulocyte Absolute (ANC) 3.36 (1.4-6.9); Hematocrit 46.2 % (42-50); Hemoglobin 15.8 gm/dl (12.5-18.0); Lymphocyte (Absolute #) 2.91 (1.0-4.6); Lymphocytes % 41.6 % (24.0-44.0); Mean Cell Volume 90.4 fl (78-100); Mean Corpuscular Hemoglobin 30.9 pg (26-32); Mean Corpuscular Hgb Concent. 34.2 g/dl (32-36); Mean Platelet Volume 10.8 fl (6-9.5); Monocyte (Absolute #) 0.57 (0.0-1.3); Monocytes % 8.1 % (0.0-12.0); Platelet Count 163 K/mm3 (150-450); Red Blood Count 5.11 M/mm3 (4.1-5.6); Red Cell Distribution Width 15.3 % (11.5-14.0)
[2019-04-01 06:01] LABS: ALBUMIN 3.4 g/dL (3.5-5.0); ALKALINE PHOSPHATASE 87 U/L (38-126); ANION GAP 9.8 MEQ/L (5-15); BLOOD UREA NITROGEN 7 mg/dL (9-20); CHLORIDE 110 mmol/L (98-107); Calcium 9.2 mg/dL (8.4-10.2); Carbon Dioxide 24 mmol/L (22-30); Creatinine 1 0.84 mg/dL (0.66-1.25); Glucose 110 mg/dL (74-106); Potassium 4.2 mmol/L (3.5-5.1); SGOT/AST 22 U/L (17-59); SGPT/ALT 22 U/L (0-50); SODIUM 140 mmol/L (137-145); Total Protein 6.3 g/dL (6.3-8.2)
[2019-04-01] MEDS ORDERED: DIPRIVAN 200 MG/20 ML IV ONE (08:21)
[2019-04-01] MEDS ORDERED: Ketamine HCl 50 MG/ML ONE (08:21)
--- NOTE | 2019-04-01 08:47 | OP ---
SURGERY DATE/TIME: 04/01/201915 PREOPERATIVE DIAGNOSIS: GI bleed. POSTOPERATIVE DIAGNOSES: 1) Small antral ulcer. 2) Hiatal hernia. 3) Gastritis. PROCEDURE: Esophagogastroduodenoscopy with cold forceps biopsy. SURGEON: Dr. Stone. ANESTHESIA: Medications were given by the anesthesia department. BRIEF HISTORY: The patient is a 58 year old white male patient known alcoholic, has been vomiting this day. His heme-test of his emesis was positive. The patient was felt to need to have endoscopic evaluation. He ws appraised of the risks of the procedure including the risk of perforation, phlebitis, untoward reaction to medication, bleeding and missed lesions. The patient verbalized his understanding and desired to have the procedure performed. DESCRIPTION OF PROCEDURE: The patient was given the medications by the anesthesia department. He had continuous pulse oximetry, ECG monitoring, intermittent blood pressure monitoring and tidal CO2 monitoring during the examination. He was placed in the left lateral decubitus position. A bite block was placed and the flexible Olympus gastroscope was used to intubate the oropharynx. A view of the larynx was obtained and was normal. The scope was easily passed in the esophagus which was normal throughout its length. No obvious esophageal varices were noted. The stomach was entered where normal gastric rugal folds were seen and these distended nicely with insufflation of air. The scope was passed along the greater curvature of the stomach to the pylorus. There appeared to be a small aphthous ulcer present noted to be benign in appearance with no active bleeding. The pylorus appeared to be widely patent. We inspected the duodenum and found no obvious bleeding or ulcers here. The scope is withdrawn towards the stomach. A retroflex view was obtained of the lesser curvature, fundus and cardia regions of the stomach and there was noted a hiatal hernia. The scope was then redirected towards the gastric antrum and biopsies were obtained to rule out the presence of Helicobacter pylori-type organisms. The scope was removed from the patient who tolerated the procedure well and was sent back to the [facility] in good condition.
[2019-04-01] MEDS ORDERED: NON-FORMULARY ITEM (Atorvastatin Calcium [Lipitor] 80 MG) PO SCH (10:00)
[2019-04-01] MEDS: Flomax 0.4 MG PO SCH (10:17)
[2019-04-01] MEDS: Zestril 5 MG PO SCH (10:18)
[2019-04-01] MEDS: ZOLOFT 50 MG TABLET PO SCH (10:18)
[2019-04-01] MEDS: ZOCOR 20MG PO SCH (10:18)
[2019-04-01] MEDS: Zithromax 250 MG TABLET PO SCH (10:18)
[2019-04-01] MEDS: Pepcid 20 MG VIAL IV SCH ×2 (10:20→21:18)
[2019-04-01] MEDS: PROTONIX 40 MG IV IV SCH (10:22)
[2019-04-01] MEDS: ROCEPHIN 1 Gm-D5w 50 ml Bag** 1 G/50 ML IVPB IV SCH (10:23)
[2019-04-01 16:47] LABS: Adenovirus F 40/41 NEGATIVE (NEGATIVE); Astrovirus NEGATIVE (NEGATIVE); C. Difficile Organism NEGATIVE (NEGATIVE); Campylobacter NEGATIVE (NEGATIVE); Cryptosporidium NEGATIVE (NEGATIVE); Cyclospora cayentanensis NEGATIVE (NEGATIVE); Entamoeaba histolytica NEGATIVE (NEGATIVE); Enteroaggregative E.coli NEGATIVE (NEGATIVE); Enteropathogenic E.coli NEGATIVE (NEGATIVE); Enterotoxigenic E.coli NEGATIVE (NEGATIVE); Giardia lamblia NEGATIVE (NEGATIVE); Norovirus GI/GII NEGATIVE (NEGATIVE); Plesiomonas shigelloides NEGATIVE (NEGATIVE); Rotavirus A NEGATIVE (NEGATIVE); Salmonella NEGATIVE (NEGATIVE); Sapovirus NEGATIVE (NEGATIVE); Shiga-like toxin prod.E.coli NEGATIVE (NEGATIVE); Vibrio NEGATIVE (NEGATIVE); Vibrio cholerae NEGATIVE (NEGATIVE); Yersinia enterocolitica NEGATIVE (NEGATIVE)
[2019-04-01] MEDS ORDERED: ZOLOFT 50 MG TABLET PO SCH (16:49)
--- NOTE | 2019-04-01 16:49 | PCM.NOTE ---
Date and Time: 04/01/19 1643 Subjective Assessment: Patient reports he doesn't have much appetite right now. He reports he has not been up out of bed yet. His motorized scooter is not here as he was brought by ambulance. He reports that he is depressed but denies SI. He is agreeable to starting a medication and will think about counseling too. He is agreeable to doing a face to face with [facility]. He reports he has been drinking alcohol due to being depressed and doesn't want to quite the alcohol. He reports stool x 3 since admission and stated stool was dark in color. He had upper endoscopy with Dr. Stone with AM with report of small gastric ulcer, gastritis, and hiatal hernia. He feels like he will be able to take care of himself at home but is having trouble with rides to doctor's appointments. Objective Exam General Appearance: no apparent distress, other (lying flat in bed; right side with limited movement which is his baseline.) Neurologic Exam: alert, cooperative Skin Exam: normal color, warm, dry Respiratory Exam: normal breath sounds, lungs clear, No crackles/rales, No rhonchi, No wheezing Cardiovascular Exam: regular rate/rhythm, normal heart sounds, No murmur, No friction rub, No gallop Gastrointestinal/Abdomen Exam: soft, normal bowel sounds, No tenderness, No distention, No mass Extremity Exam: normal inspection, other (trace edema, no c/c) OBJECTIVE DATA Vital Signs: Vital Signs - 24 hr Temp Pulse Resp BP BP Pulse Ox 04/01/19 16:00 20 04/01/19 12:00 20 04/01/19 10:30 89 135/74 04/01/19 08:00 98.1 F 81 20 142/85 96 04/01/19 07:55 93 L 04/01/19 05:46 98.5 F 78 20 150/83 93 L 04/01/19 04:10 98.5 F 78 20 150/83 93 L 04/01/19 00:10 98.4 F 95 H 19 139/68 96 03/31/19 20:12 82 22 95 03/31/19 20:00 98.6 F 88 22 130/80 95 Pain Assessment - Last Documented Pain Intensity 0 Pain Scale Used 0-10 Pain Scale Intake and Output: Intake & Output 08/06/0803/31/19 04/01/19 04/02/19 06:59 06:59 06:59 06:59 Intake Total 5145 840 Output Total 7105 7070 Balance 3533 -1410 Weight 127.6 kg 122.5 kg Lab Results: Lab Results-Last 24 Hours 04/01/19 04/01/19 Range/Units 05:25 05:25 WBC 7.0 (4.0-10.5) K/mm3 RBC 5.11 (4.1-5.6) M/mm3 Hgb 15.8 D (12.5-18.0) gm/dl Hct 46.2 (42-50) % MCV 90.4 (78-100) fl MCH 30.9 (26-32) pg MCHC 34.2 (32-36) g/dl RDW 15.3 H (11.5-14.0) % Plt Count 163 (150-450) K/mm3 MPV 10.8 H (6-9.5) fl Gran % 48.0 (36.0-66.0) % Eos # (Auto) 0.13 (0-0.5) Absolute Lymphs (auto) 2.91 (1.0-4.6) Absolute Monos (auto) 0.57 (0.0-1.3) Lymphocytes % 41.6 (24.0-44.0) % Monocytes % 8.1 (0.0-12.0) % Eosinophils % 1.9 (0.00-5.0) % Basophils % 0.4 (0.0-0.4) % Absolute Granulocytes 3.36 (1.4-6.9) Basophils # 0.03 (0-0.4) Sodium 140 (137-145) mmol/L Potassium 4.2 (3.5-5.1) mmol/L Chloride 110 H D (98-107) mmol/L Carbon Dioxide 24 (22-30) mmol/L Anion Gap 9.8 (5-15) MEQ/L BUN 7 L (9-20) mg/dL Creatinine 0.84 (0.66-1.25) mg/dL Estimated GFR > 60.0 ML/MIN Glucose 110 H (74-106) mg/dL Calcium 9.2 D (8.4-10.2) mg/dL Total Bilirubin 0.80 (0.2-1.3) mg/dL AST 22 (17-59) U/L ALT 22 (0-50) U/L Alkaline Phosphatase 87 (38-126) U/L Serum Total Protein 6.3 (6.3-8.2) g/dL Albumin 3.4 L (3.5-5.0) g/dL Radiology Exams: Radiology Procedures Category Date Time Status HEAD WITHOUT CONTRAST [CT] Stat Exams 03/30/19 23:01 Completed Multi-Disciplinary Progress Notes: Multi-Disciplinary Progress Notes 04/01/19 13:24 Case Management Note by Cierra Nielsen ATTEMPTED TO REACH CAITLIN, PT'S SON, NO ANSWER AT EITHER OF THE NUMBERS THAT ARE LISTED FOR HIM. Initialized on 04/01/19 13:24 - END OF NOTE 04/01/19 13:16 Case Management Note by Cierra Nielsen CALL TO HELP AT HOME, SPOKE WITH JOANA. Initialized on 04/01/19 13:16 - END OF NOTE 04/01/19 13:02 Case Management Note by Cierra Nielsen DISCHARGE PLAN REVIEWED WITH PT. REPORTS THAT HE LIVES AT [facility] AND HAS A MOTORIZED WHEELCHAIR. REPORTS THAT HE CAN RUN TO THE GROCERY STORE WITHOUT DIFFICULTY. ALSO, HAS A WALKER THAT HE USES. PT REPORTS THAT HE HAS HELP AT HOME SERVICES, A HOMEMAKER THAT COMES IN WEEKLY TO CLEAN HIS APARTMENT AND ONCE A MONTH TO TAKE HIM TO THE GROCERY STORE, HE ALSO, HAS AN AIDE THAT COMES IN ON AND TO ASSIST WITH SHOWERS. REPORTS THAT HIS [employer] MERCHANT HELPS HIM FROM TIME TO TIME WITH RIDES, ETC, BUT ALSO, REPORTS THAT HE IS HAVING SOME HEALTH ISSUES OF HIS OWN. REPORTS THAT HE HAS MEDICAID TRANSPORTATION BUT HE HAS BEEN HAVING DIFFICULTY WITH RIDES, REPORTS THAT HE MAKES APPOINTMENTS, AND THEN THEY CALL HIM AND TELL HIM THAT THEY CAN NOT TAKE HIM. DISCUSSED THAT HE NEEDED TO CALL [facility] TO SCHEDULE ALL MEDICAID TRANSPORTATION, AND PT REPORTS THAT HE HAS CALLED THEM AND HAS THEIR NUMBER, AND THIS IS WHO HE IS HAVING TROUBLE WITH. ENCOURAGED PT TO CALL MEDICAID AND REPORT THE DIFFICULTIES. ALSO, DISCUSSED RIDE SOLUTIONS, IF HE COULD AFFORD TO PAY FOR RIDES IN TOWN TO DR. RIOS. PT REPORTS THAT HE WOULD LIKE TO HAVE THAT NUMBER FOR A BACKUP. DISCUSSED THAT THESE RIDES TOO NEED TO BE MADE IN ADVANCE. PT VERBALIZED UNDERSTANDING. PT REPORTS THAT HIS SON, CAITLIN, LIVES IN [facility], AND HE IS UNSURE IF CAITLIN IS AWARE THAT HE IS HERE, REPORTS THAT HIS SON IS ALSO HIS POA. REQUESTED THAT THIS OFFICE TECHNOLOGIST TRY TO REACH HIS SON AND LET HIM KNOW HE IS HERE. DENIES ADDNL NEEDS AT PRESENT TIME. WILL CALL HELP AT HOME TO NOTIFY THAT PT IS HERE, AND WILL ALSO, TRY TO REACH PT'S SON. Initialized on 04/01/19 13:02 - END OF NOTE Assessment/Plan (1) Upper GI bleed Current Visit: Yes Status: Acute Assessment & Plan: Continue protonix and pepcid. Will recheck labs in AM; s/p upper endoscopy with Dr. Stone. Code(s): K92.2 - GASTROINTESTINAL HEMORRHAGE, UNSPECIFIED (2) Gastric ulcer Current Visit: Yes Status: Acute Qualifiers: Gastric ulcer chronicity: acute Code(s): K25.9 - GASTRIC ULCER, UNSP ACUTE OR CHRONIC, W/O HEMOR OR PERF (3) Diarrhea Current Visit: Yes Status: Acute Qualifiers: Diarrhea type: unspecified type Qualified Code(s): R19.7 - Diarrhea, unspecified Assessment & Plan: GI Panel ordered. May be due to antibiotics for copd. Code(s): R19.7 - DIARRHEA, UNSPECIFIED (4) History of CVA (cerebrovascular accident) Current Visit: Yes Status: Chronic Assessment & Plan: Continue home medication. He is at his baseline. Has support in place as described in logistics planner's note. Plan to restart aspirin tomorrow. He is on aspirin according to our outpatient record. Code(s): Z86.73 - PRSNL HX OF TIA (TIA), AND CEREB INFRC W/O RESID DEFICITS (5) Alcohol abuse Current Visit: Yes Status: Chronic Assessment & Plan: Recommended AA meetings but he is not interested. Code(s): F10.10 - ALCOHOL ABUSE, UNCOMPLICATED (6) Depression Current Visit: Yes Status: Acute Qualifiers: Depression Type: major depressive disorder Active/Remission status: currently active Psychotic features: without psychotic features Assessment & Plan: I had discussed fluoxetine with patient but he is already on zoloft so will increase this from 50 mg to 100 mg and follow up as outpatient. Code(s): F32.9 - MAJOR DEPRESSIVE DISORDER, SINGLE EPISODE, UNSPECIFIED (7) DVT prophylaxis Current Visit: Yes Status: Acute Assessment & Plan: SCD and snow hose. Code(s): Z29.9 - ENCOUNTER FOR PROPHYLACTIC MEASURES, UNSPECIFIED (8) COPD exacerbation Current Visit: Yes Status: Acute Assessment & Plan: started on ceftriaxone and azithromycin. will continue but if continues to do well tomorrow may stop one of the antibiotics as it may be causing diarrhea too. Code(s): J44.1 - CHRONIC OBSTRUCTIVE PULMONARY DISEASE W (ACUTE) EXACERBATION
[2019-04-02 05:26] LABS: BASOPHIL % 0.3 % (0.0-0.4); Basophil (Absolute #) 0.02 (0-0.4); Eosinophil (Absolute #) 0.23 (0-0.5); Granulocyte Absolute (ANC) 3.94 (1.4-6.9); Hematocrit 45.7 % (42-50); Hemoglobin 15.6 gm/dl (12.5-18.0); Lymphocyte (Absolute #) 2.86 (1.0-4.6); Mean Cell Volume 90.3 fl (78-100); Mean Corpuscular Hemoglobin 30.8 pg (26-32); Mean Corpuscular Hgb Concent. 34.1 g/dl (32-36); Mean Platelet Volume 10.6 fl (6-9.5); Monocyte (Absolute #) 0.67 (0.0-1.3); Monocytes % 8.7 % (0.0-12.0); Platelet Count 167 K/mm3 (150-450); Red Blood Count 5.06 M/mm3 (4.1-5.6); White Blood Count 7.7 K/mm3 (4.0-10.5)
[2019-04-02 05:38] LABS: ANION GAP 9.6 MEQ/L (5-15); BLOOD UREA NITROGEN 9 mg/dL (9-20); CHLORIDE 109 mmol/L (98-107); Calcium 9.4 mg/dL (8.4-10.2); Carbon Dioxide 24 mmol/L (22-30); Creatinine 1 0.83 mg/dL (0.66-1.25); Glucose 105 mg/dL (74-106); Potassium 3.8 mmol/L (3.5-5.1); SODIUM 139 mmol/L (137-145)
[2019-04-02 07:34] VITALS: BP 128/68; PULSE 81; O2SAT 96
--- NOTE | 2019-04-02 08:42 | PCM.DCORD ---
- Discharge Disposition: Home, Self-Care Condition: Good Prescriptions: New Aspirin EC 325 mg [Ecotrin 325 MG] 325 mg PO DAILY #30 tablet.ec PANTOPRAZOLE 40 mg Tablet [Protonix 40MG Tablet] 40 mg PO QAM #30 tab Ranitidine HCl 300 mg PO DAILY #2 tablet Sertraline HCl 50 mg [Zoloft 50 mg Tablet] 150 mg PO DAILY #90 tab Continue Tamsulosin HCl 0.4 mg [Flomax 0.4 MG] 0.4 mg PO DAILY Lisinopril 5 mg [Zestril 5 MG] 5 mg PO DAILY Atorvastatin Calcium [Lipitor] 80 mg PO DAILY Baclofen 10 mg [Lioresal 10 mg] 10 mg PO TID Discontinued Sertraline HCl 50 mg [Zoloft 50 mg Tablet] 100 mg PO DAILY Additional Instructions: Follow up with [facility] for counseling. Stop using alcohol. Return to ER if lightheadedness, dizziness, vomiting bright red blood or coffee ground emesis or dark black stools or blood in your stool or any other concerns. Follow up with: SUZI PARSONS [Primary Care Provider] - 04/09/19 9:00 am
[2019-04-02] MEDS: Zithromax 250 MG TABLET PO SCH (09:03)
[2019-04-02] MEDS: ZOCOR 20MG PO SCH (09:03)
[2019-04-02] MEDS: Zestril 5 MG PO SCH (09:04)
[2019-04-02] MEDS: ROCEPHIN 1 Gm-D5w 50 ml Bag** 1 G/50 ML IVPB IV SCH (09:04)
[2019-04-02] MEDS: Pepcid 20 MG VIAL IV SCH (09:04)
[2019-04-02] MEDS: PROTONIX 40 MG IV IV SCH (09:04)
[2019-04-02] MEDS: Flomax 0.4 MG PO SCH (09:04)
[2019-04-02] MEDS ORDERED: Ecotrin 325 MG PO SCH (10:00)
== END 2019-04-02 10:50 | disposition home or self-care (01) ==
LOC: ED 22:53 → MED SURG 03-31 04:21
PROVIDERS: ADMIT Internal Medicine; ATTEND Internal Medicine
DX: K92.2 Gastrointestinal hemorrhage, unspecified (principal); E87.6 Hypokalemia; F10.929 Alcohol use, unspecified with intoxication, unspecified; K44.9 Diaphragmatic hernia without obstruction or gangrene; K29.70 Gastritis, unspecified, without bleeding; K25.9 Gastric ulcer, unspecified as acute or chronic, without hemorrhage or perforation; J44.1 Chronic obstructive pulmonary disease with (acute) exacerbation; I10 Essential (primary) hypertension; R19.7 Diarrhea, unspecified; R10.33 Periumbilical pain; Z86.73 Personal history of transient ischemic attack (TIA), and cerebral infarction without residual deficits; Z72.0 Tobacco use; Z79.899 Other long term (current) drug therapy
CPT/HCPCS: 36000; 36415; 43239; 70450; 80048; 80053; 80307; 81001; 82140; 82150; 82271; 83605; 83690; 83735; 84132; 84484; 85025; 87507; 90791; 93005; 93268; 94640; 94760; 94762; 96360; 96365; 96366; 96374; 99284; G0378; G0480; G0481; Q3014; J0696; J2704; J3480; A9270-GY

== ENCOUNTER 2020-10-22 15:44 | Emergency (ER) | payer MEDICARE ==
[2020-10-22] MEDS ORDERED: Zofran 4 MG/2 ML VIAL IV ONE (15:56)
[2020-10-22] MEDS ORDERED: PROTONIX 40 MG IV IV ONE (15:56)
[2020-10-22] MEDS ORDERED: Sodium Chloride 0.9% 1000 ML 1,000 ML IV STA ×2 (15:56→17:23)
--- NOTE | 2020-10-22 15:56 | ERPHSYRPT ---
- History of Present Illness Time Seen by Provider: 10/22/20 15:56 Historian: patient, EMS Exam Limitations: clinical condition Physician History: This is a 60-year-old white male who has a history of hypertension and history of stroke in the past with residual confusion and right-sided weakness as well as a history of alcohol abuse and also admits to marijuana use and presents with vomiting and diarrhea for 3 days. Patient states his last consumption of alcohol and marijuana was yesterday. Patient has a history of COPD and peptic ulcer disease. He has no significant chest pain he also has no significant abdominal pain at this time. Patient was brought into the emergency department by the ambulance service. Patient states that he did take his medications this morning. He has a remote history of hepatitis per his report. Timing/Duration: day(s) (2-3) Activities at Onset: none Abdominal Pain Onset Location: generalized abdomen Pain Radiation: no radiation Severity of Pain-Max: mild Severity of Pain-Current: none Modifying Factors: Improves With: vomiting Associated Symptoms: diarrhea, loss of appetite, nausea, vomiting Previous symptoms: same symptoms as today Allergies/Adverse Reactions: No Known Drug Allergies Allergy (Verified 10/22/20 15:58) Home Medications: Atorvastatin Calcium [Lipitor] 80 mg PO DAILY 08/31/17 [History] Lisinopril 5 mg [Zestril 5 MG] 5 mg PO DAILY 08/31/17 [History] Tamsulosin HCl 0.4 mg [Flomax 0.4 MG] 0.4 mg PO DAILY 08/31/17 [History] Baclofen 10 mg [Lioresal 10 mg] 10 mg PO TID 03/30/19 [History] Hx Tetanus, Diphtheria Vaccination/Date Given: Yes (2017) Hx Influenza Vaccination/Date Given: No Hx Pneumococcal Vaccination/Date Given: No Travel Risk - International Travel Have you traveled outside of the country in past 3 weeks: No - Coronavirus Screening Are you exhibiting any of the following symptoms?: Yes Symptoms: Cough: New Onset, Vomiting/Diarrhea Close contact with a COVID-19 positive Pt in past 14-21 Days: No - Review of Systems Constitutional: No Symptoms Eyes: No Symptoms Ears, Nose, & Throat: No Symptoms Respiratory: Cough Cardiac: No Symptoms Abdominal/Gastrointestinal: Nausea, Vomiting, Diarrhea Genitourinary Symptoms: No Symptoms Musculoskeletal: No Symptoms Skin: No Symptoms Neurological: No Symptoms Psychological: No Symptoms Endocrine: No Symptoms Hematologic/Lymphatic: No Symptoms Immunological/Allergic: No Symptoms All Other Systems: Reviewed and Negative - Past Medical History Pertinent Past Medical History: Yes Neurological History: Stroke ENT History: No Pertinent History Cardiac History: No Pertinent History Respiratory History: No Pertinent History Endocrine Medical History: No Pertinent History Musculoskeletal History: No Pertinent History GI Medical History: No Pertinent History History: No Pertinent History Psycho-Social History: No Pertinent History Male Reproductive Disorders: Prostate Problems Other Medical History: REPORTS RHUEMATIC FEVER AND HEPITITIS WHEN HE WAS YOUNG BUT OTHERISE NONSIGNIFICANT. - Past Surgical History Past Surgical History: Yes Neuro Surgical History: No Pertinent History Cardiac: No Pertinent History Respiratory: No Pertinent History Gastrointestinal: No Pertinent History Genitourinary: No Pertinent History Musculoskeletal: Orthopedic Surgery Male Surgical History: No Pertinent History Other Surgical History: Colonoscopy - Social History Smoking Status: Current every day smoker How long have you smoked: 30 years Exposure to second hand smoke: Yes Drug Use: none Patient Lives Alone: Yes - Nursing Vital Signs Nursing Vital Signs: Initial Vital Signs Temperature 98.0 F 10/22/20 15:46 Pulse Rate 94 H 10/22/20 15:46 Blood Pressure 137/104 10/22/20 15:46 O2 Sat by Pulse Oximetry 97 10/22/20 15:46 Pain Scale Pain Intensity 0 - Physical Exam General Appearance: no apparent distress, alert, anxiety Eye Exam: PERRL/EOMI, eyes nml inspection Ears, Nose, Throat Exam: normal ENT inspection, moist mucous membranes Neck Exam: normal inspection, non-tender, supple, full range of motion Respiratory Exam: normal breath sounds, lungs clear, airway intact, No chest tenderness, No respiratory distress Cardiovascular Exam: regular rate/rhythm, normal heart sounds, normal peripheral pulses Gastrointestinal/Abdomen Exam: soft, normal bowel sounds, No tenderness, No guarding Rectal Exam: not done Back Exam: normal inspection, normal range of motion, No CVA tenderness, No vertebral tenderness Extremity Exam: normal inspection, normal range of motion, pelvis stable Neurologic Exam: alert, oriented x 3, cooperative, car builder II-XII nml as tested, normal mood/affect Skin Exam: normal color, warm, dry Lymphatic Exam: No adenopathy SpO2 Interpretation: normal O2 Delivery: Room Air - Course Nursing assessment & vital signs reviewed: Yes Ordered Tests: Active Orders 24 hr Category Date Time Status IV Insertion STAT Care 10/22/20 15:56 Active cath [Cath for Specimen-Straight] STAT Care 10/22/20 18:42 Active ABDOMEN AND PELVIS W/0 CONTRAS [CT] Stat Exams 10/22/20 15:57 Completed CHEST 1 VIEW (PORTABLE) Stat Exams 10/22/20 16:04 Completed AMYLASE Stat Lab 10/22/20 16:15 Completed CBC W DIFF Stat Lab 10/22/20 16:15 Completed CMP Stat Lab 10/22/20 16:15 Completed ETHYL ALCOHOL Stat Lab 10/22/20 16:15 Completed INFLUENZA A+B DAMARIS Stat Lab 10/22/20 16:20 Completed LIPASE Stat Lab 10/22/20 16:15 Completed Lactic Acid Stat Lab 10/22/20 16:19 Completed Lactic Acid Stat Lab 10/22/20 18:23 Received MAGNESIUM Stat Lab 10/22/20 16:15 Completed [place] Screen Stat Lab 10/22/20 16:15 Completed UA W/RFX UR CULTURE Stat Lab 10/22/20 18:41 Completed Urine Triage Profile Stat Lab 10/22/20 18:41 Completed Medication Summary Discontinued Medications Generic Name Dose Route Start Last Admin Trade Name Freq PRN Reason Stop Dose Admin Sodium Chloride 1,000 mls @ 999 mls/hr 10/22/20 15:56 10/22/20 17:26 Sodium Chloride 0.9% 1000 Ml IV 10/22/20 16:56 Infused .Q1H1M STA Infusion Sodium Chloride Confirm 10/22/20 16:09 Sodium Chloride 0.9% 1000 Ml Administered 10/22/20 16:10 Dose 1,000 mls @ ud .ROUTE .STK-MED ONE Sodium Chloride 1,000 mls @ 999 mls/hr 10/22/20 17:23 10/22/20 18:47 Sodium Chloride 0.9% 1000 Ml IV 10/22/20 18:23 Infused .Q1H1M STA Infusion Sodium Chloride Confirm 10/22/20 17:24 Sodium Chloride 0.9% 1000 Ml Administered 10/22/20 17:25 Dose 1,000 mls @ ud .ROUTE .STK-MED ONE Ondansetron HCl 4 mg 10/22/20 15:56 Zofran 4 Mg/2 Ml Vial IV 10/22/20 15:57 STAT ONE Pantoprazole Sodium 40 mg 10/22/20 15:56 Protonix 40 Mg Iv IV 10/22/20 15:57 STAT ONE Lab/Rad Data: Laboratory Result Diagrams 10/22/20 16:15 10/22/20 16:15 Laboratory Results 10/22/20 10/22/20 10/22/20 Range/Units 18:41 18:41 16:20 WBC (4.0-10.5) K/mm3 RBC (4.1-5.6) M/mm3 Hgb (12.5-18.0) gm/dl Hct (42-50) % MCV (78-100) fl MCH (26-32) pg MCHC (32-36) g/dl RDW (11.5-14.0) % Plt Count (150-450) K/mm3 MPV (7.5-11.0) fl Gran % (36.0-66.0) % Eos # (Auto) (0-0.5) Absolute Lymphs (auto) (1.0-4.6) Absolute Monos (auto) (0.0-1.3) Lymphocytes % (24.0-44.0) % Monocytes % (0.0-12.0) % Eosinophils % (0.00-5.0) % Basophils % (0.0-0.4) % Absolute Granulocytes (1.4-6.9) Basophils # (0-0.4) Sodium (137-145) mmol/L Potassium (3.5-5.1) mmol/L Chloride (98-107) mmol/L Carbon Dioxide (22-30) mmol/L Anion Gap (5-15) MEQ/L BUN (9-20) mg/dL Creatinine (0.66-1.25) mg/dL Estimated GFR ML/MIN Glucose (74-106) mg/dL Lactic Acid (0.4-2.0) Calcium (8.4-10.2) mg/dL Magnesium (1.6-2.3) mg/dL Total Bilirubin (0.2-1.3) mg/dL AST (17-59) U/L ALT (0-50) U/L Alkaline Phosphatase (38-126) U/L Ammonia (9-30) umol/L Serum Total Protein (6.3-8.2) g/dL Albumin (3.5-5.0) g/dL Amylase (30-110) U/L Lipase (23-300) U/L Urine Color YELLOW (YELLOW) Urine Appearance CLEAR (CLEAR) Urine pH 6.0 (5-6) Ur Specific [place] 1.009 (1.005-1.025) Urine Protein NEGATIVE (Negative) Urine Ketones NEGATIVE (NEGATIVE) Urine Blood SMALL (0-5) Cal[place]/ul Urine Nitrite NEGATIVE (NEGATIVE) Urine Bilirubin NEGATIVE (NEGATIVE) Urine Urobilinogen NEGATIVE (0-1) mg/dL Ur Leukocyte Esterase NEGATIVE (NEGATIVE) Urine WBC (Auto) NONE (0-5) /HPF Urine RBC (Auto) 0-2 (0-2) /HPF U Epithel Cells (Auto) NONE (FEW) /HPF Urine Bacteria (Auto) NONE (NEGATIVE) /HPF Urine Mucus (Auto) SLIGHT (NEGATIVE) /HPF Urine Culture Reflexed NO (NO) Urine Glucose NEGATIVE (NEGATIVE) mg/dL Urine Opiates Level NEGATIVE (NEGATIVE) Ur Methadone NEGATIVE (NEGATIVE) Urine Barbiturates NEGATIVE (NEGATIVE) Ur Phencyclidine (PCP) NEGATIVE (NEGATIVE) Urine Amphetamine NEGATIVE (NEGATIVE) U Benzodiazepine Level NEGATIVE (NEGATIVE) Urine Cocaine NEGATIVE (NEGATIVE) Urine Marijuana (THC) NEGATIVE (NEGATIVE) Ethyl Alcohol (0-10) mg/dL Monoscreen (Negative) Influenza Type A Ag NEGATIVE (NEGATIVE) Influenza Type B Ag NEGATIVE (NEGATIVE) 10/22/20 10/22/20 10/22/20 Range/Units 16:19 16:15 16:15 WBC (4.0-10.5) K/mm3 RBC (4.1-5.6) M/mm3 Hgb (12.5-18.0) gm/dl Hct (42-50) % MCV (78-100) fl MCH (26-32) pg MCHC (32-36) g/dl RDW (11.5-14.0) % Plt Count (150-450) K/mm3 MPV (7.5-11.0) fl Gran % (36.0-66.0) % Eos # (Auto) (0-0.5) Absolute Lymphs (auto) (1.0-4.6) Absolute Monos (auto) (0.0-1.3) Lymphocytes % (24.0-44.0) % Monocytes % (0.0-12.0) % Eosinophils % (0.00-5.0) % Basophils % (0.0-0.4) % Absolute Granulocytes (1.4-6.9) Basophils # (0-0.4) Sodium (137-145) mmol/L Potassium (3.5-5.1) mmol/L Chloride (98-107) mmol/L Carbon Dioxide (22-30) mmol/L Anion Gap (5-15) MEQ/L BUN (9-20) mg/dL Creatinine (0.66-1.25) mg/dL Estimated GFR ML/MIN Glucose (74-106) mg/dL Lactic Acid 2.0 (0.4-2.0) Calcium (8.4-10.2) mg/dL Magnesium (1.6-2.3) mg/dL Total Bilirubin (0.2-1.3) mg/dL AST (17-59) U/L ALT (0-50) U/L Alkaline Phosphatase (38-126) U/L Ammonia < 9 L (9-30) umol/L Serum Total Protein (6.3-8.2) g/dL Albumin (3.5-5.0) g/dL Amylase (30-110) U/L Lipase (23-300) U/L Urine Color (YELLOW) Urine Appearance (CLEAR) Urine pH (5-6) Ur Specific [place] (1.005-1.025) Urine Protein (Negative) Urine Ketones (NEGATIVE) Urine Blood (0-5) Cali/ul Urine Nitrite (NEGATIVE) Urine Bilirubin (NEGATIVE) Urine Urobilinogen (0-1) mg/dL Ur Leukocyte Esterase (NEGATIVE) Urine WBC (Auto) (0-5) /HPF Urine RBC (Auto) (0-2) /HPF U Epithel Cells (Auto) (FEW) /HPF Urine Bacteria (Auto) (NEGATIVE) /HPF Urine Mucus (Auto) (NEGATIVE) /HPF Urine Culture Reflexed (NO) Urine Glucose (NEGATIVE) mg/dL Urine Opiates Level (NEGATIVE) Ur Methadone (NEGATIVE) Urine Barbiturates (NEGATIVE) Ur Phencyclidine (PCP) (NEGATIVE) Urine Amphetamine (NEGATIVE) U Benzodiazepine Level (NEGATIVE) Urine Cocaine (NEGATIVE) Urine Marijuana (THC) (NEGATIVE) Ethyl Alcohol (0-10) mg/dL Monoscreen NEGATIVE (Negative) Influenza Type A Ag (NEGATIVE) Influenza Type B Ag (NEGATIVE) 10/22/20 10/22/20 Range/Units 16:15 16:15 WBC 6.3 (4.0-10.5) K/mm3 RBC 6.27 H* (4.1-5.6) M/mm3 Hgb 18.4 H (12.5-18.0) gm/dl Hct 53.8 H (42-50) % MCV 85.8 (78-100) fl MCH 29.3 (26-32) pg MCHC 34.2 (32-36) g/dl RDW 15.3 H (11.5-14.0) % Plt Count 181 (150-450) K/mm3 MPV 10.2 (7.5-11.0) fl Gran % 65.3 (36.0-66.0) % Eos # (Auto) 0.06 (0-0.5) Absolute Lymphs (auto) 1.71 (1.0-4.6) Absolute Monos (auto) 0.39 (0.0-1.3) Lymphocytes % 27.1 (24.0-44.0) % Monocytes % 6.2 (0.0-12.0) % Eosinophils % 0.9 (0.00-5.0) % Basophils % 0.5 (0.0-0.4) % Absolute Granulocytes 4.13 (1.4-6.9) Basophils # 0.03 (0-0.4) Sodium 134 L (137-145) mmol/L Potassium 4.8 (3.5-5.1) mmol/L Chloride 99 (98-107) mmol/L Carbon Dioxide 27 (22-30) mmol/L Anion Gap 13.2 (5-15) MEQ/L BUN 7 L (9-20) mg/dL Creatinine 0.88 (0.66-1.25) mg/dL Estimated GFR > 60.0 ML/MIN Glucose 156 H (74-106) mg/dL Lactic Acid (0.4-2.0) Calcium 10.2 (8.4-10.2) mg/dL Magnesium 2.4 H (1.6-2.3) mg/dL Total Bilirubin 0.60 (0.2-1.3) mg/dL AST 65 H (17-59) U/L ALT 34 (0-50) U/L Alkaline Phosphatase 118 (38-126) U/L Ammonia (9-30) umol/L Serum Total Protein 8.1 (6.3-8.2) g/dL Albumin 4.5 (3.5-5.0) g/dL Amylase 95 (30-110) U/L Lipase 163 (23-300) U/L Urine Color (YELLOW) Urine Appearance (CLEAR) Urine pH (5-6) Ur Specific [place] (1.005-1.025) Urine Protein (Negative) Urine Ketones (NEGATIVE) Urine Blood (0-5) Cali/ul Urine Nitrite (NEGATIVE) Urine Bilirubin (NEGATIVE) Urine Urobilinogen (0-1) mg/dL Ur Leukocyte Esterase (NEGATIVE) Urine WBC (Auto) (0-5) /HPF Urine RBC (Auto) (0-2) /HPF U Epithel Cells (Auto) (FEW) /HPF Urine Bacteria (Auto) (NEGATIVE) /HPF Urine Mucus (Auto) (NEGATIVE) /HPF Urine Culture Reflexed (NO) Urine Glucose (NEGATIVE) mg/dL Urine Opiates Level (NEGATIVE) Ur Methadone (NEGATIVE) Urine Barbiturates (NEGATIVE) Ur Phencyclidine (PCP) (NEGATIVE) Urine Amphetamine (NEGATIVE) U Benzodiazepine Level (NEGATIVE) Urine Cocaine (NEGATIVE) Urine Marijuana (THC) (NEGATIVE) Ethyl Alcohol < 10 (0-10) mg/dL Monoscreen (Negative) Influenza Type A Ag (NEGATIVE) Influenza Type B Ag (NEGATIVE) - Progress Progress: improved, pain not gone completely, re-examined Progress Note: 10/22/20 16:54 Chest x-ray shows no acute cardiopulmonary process 10/22/20 17:19 CAT scan of the abdomen pelvis without contrast shows a small but new distal abdominal aortic aneurysm. There are no acute CT of the abdomen/pelvis without contrast findings. 10/22/20 19:37 Medical decision making: This patient states that he is feeling better now than when he came in. His work-up does not show anything acute or emergent. He tolerated liquids without any problems. We will send him home with 2 take-home Zofran ODT tablets and send a prescription of Zofran to his pharmacy. Counseled pt/family regarding: lab results, diagnosis, need for follow-up, rad results - Departure Departure Disposition: Home Clinical Impression: Nausea vomiting and diarrhea Condition: Stable Critical Care Time: No Referrals: SUZI PARSONS [Primary Care Provider] - Additional Instructions: Avoid alcohol and tobacco use. Take your medication as prescribed. Drink plenty of fluids. Avoid fatty greasy spicy foods. Follow-up with your primary care physician for further management
[2020-10-22] MEDS ORDERED: Sodium Chloride 0.9% 1000 ML 1,000 ML ONE ×2 (16:09→17:24)
[2020-10-22 16:26] LABS: Absolute Neutrophil Ct (ANC) 4.13 (1.4-6.9); BASOPHIL % 0.5 % (0.0-0.4); Basophil (Absolute #) 0.03 (0-0.4); Eosinophil % 0.9 % (0.00-5.0); Eosinophil (Absolute #) 0.06 (0-0.5); Hematocrit 53.8 % (42-50); Hemoglobin 18.4 gm/dl (12.5-18.0); Lymphocyte (Absolute #) 1.71 (1.0-4.6); Lymphocytes % 27.1 % (24.0-44.0); Mean Cell Volume 85.8 fl (78-100); Mean Corpuscular Hemoglobin 29.3 pg (26-32); Mean Corpuscular Hgb Concent. 34.2 g/dl (32-36); Mean Platelet Volume 10.2 fl (7.5-11.0); Monocyte (Absolute #) 0.39 (0.0-1.3); Monocytes % 6.2 % (0.0-12.0); Neutrophil % 65.3 % (36.0-66.0); Platelet Count 181 K/mm3 (150-450); Red Blood Count 6.27 M/mm3 (4.1-5.6); Red Cell Distribution Width 15.3 % (11.5-14.0); White Blood Count 6.3 K/mm3 (4.0-10.5)
--- NOTE | 2020-10-22 16:31 | XRAY ---
Indication: Nausea and vomiting 2 days. Suspect COVID 19. Comparison: None Portable chest demonstrates normal heart and lungs. Bony thorax intact with old right 8 posterior lateral rib fracture.
[2020-10-22 16:38] LABS: ALBUMIN 4.5 g/dL (3.5-5.0); ALKALINE PHOSPHATASE 118 U/L (38-126); AMYLASE 95 U/L (30-110); ANION GAP 13.2 MEQ/L (5-15); BLOOD UREA NITROGEN 7 mg/dL (9-20); CHLORIDE 99 mmol/L (98-107); Calcium 10.2 mg/dL (8.4-10.2); Carbon Dioxide 27 mmol/L (22-30); Creatinine 1 0.88 mg/dL (0.66-1.25); EST GLOMERULAR FILTRATION RATE > 60.0 ML/MIN; ETHYL ALCOHOL < 10 mg/dL (0-10); Glucose 156 mg/dL (74-106); LIPASE 163 U/L (23-300); MAGNESIUM 2.4 mg/dL (1.6-2.3); Potassium 4.8 mmol/L (3.5-5.1); SGOT/AST 65 U/L (17-59); SGPT/ALT 34 U/L (0-50); SODIUM 134 mmol/L (137-145); Total Protein 8.1 g/dL (6.3-8.2)
--- NOTE | 2020-10-22 16:54 | XRAY ---
Indication: Nausea, vomiting, and diarrhea. Multiple contiguous axial images obtained through the abdomen and pelvis without contrast. Comparison: November 26, 2010. Lung bases demonstrates minimal dependent atelectasis. No infiltrate or effusion. Heart is not enlarged. Noncontrasted stomach and bowel loops appear nonobstructed. Normal appendix. Left lower kidney demonstrates 2 new nonobstructing calculi, largest 6 mm. Stable fatty liver. Remaining liver, gallbladder, pancreas, spleen, adrenal glands, kidneys, ureters, and bladder appear unremarkable for noncontrast exam. Again scattered aortoiliac calcifications with new 3.5 x 3.7 cm distal AAA. Osseous structures again demonstrates L4-S1 degenerative vacuum disc phenomena. New multiple old right rib fractures. New small fatty bilateral inguinal hernias. Impression: 1. Again nonobstructing left renal micro-calculi and fatty liver. 2. New findings including AAA, small bilateral fatty inguinal hernias, and old right rib fractures. 3. Remaining CT abdomen/pelvis without contrast exam is negative.
[2020-10-22 17:00] LABS: INFLUENZA A NEGATIVE (NEGATIVE); INFLUENZA B NEGATIVE (NEGATIVE)
[2020-10-22 18:57] LABS: Appearance CLEAR (CLEAR); Bilirubin NEGATIVE (NEGATIVE); Blood SMALL Ery/ul (0-5); Glucose NEGATIVE (NEGATIVE); Ketones NEGATIVE (NEGATIVE); Leukocyte Esterase NEGATIVE (NEGATIVE); Mucus SLIGHT /HPF (NEGATIVE); Nitrite NEGATIVE (NEGATIVE); Protein,Urine Dip NEGATIVE (Negative); RBC 0-2 /HPF (0-2); Specific Gravity 1.009 (1.005-1.025); Urobilinogen NEGATIVE mg/dL (0-1)
[2020-10-22 19:10] LABS: Amphetamine,Urine NEGATIVE (NEGATIVE); Barbiturate,Urine NEGATIVE (NEGATIVE); Benzodiazepine,Urine NEGATIVE (NEGATIVE); Cocaine,Urine NEGATIVE (NEGATIVE); Methadone,Urine NEGATIVE (NEGATIVE); Opiate,Urine NEGATIVE (NEGATIVE); PCP,Urine NEGATIVE (NEGATIVE); THC,Urine NEGATIVE (NEGATIVE)
[2020-10-22] MEDS ORDERED: ZOFRAN ODT 4 MG ONE (19:36)
[2020-10-22] MEDS ORDERED: ZOFRAN ODT 4 MG PO ONE ×2 (19:40→19:43)
[2020-10-22 19:47] VITALS: BP 123/92; PULSE 92; O2SAT 96
== END 2020-10-22 20:01 | disposition home or self-care (01) ==
LOC: ED 15:44
DX: R11.2 Nausea with vomiting, unspecified (principal); R19.7 Diarrhea, unspecified; I10 Essential (primary) hypertension; F10.10 Alcohol abuse, uncomplicated; F12.10 Cannabis abuse, uncomplicated; F17.210 Nicotine dependence, cigarettes, uncomplicated; Z86.73 Personal history of transient ischemic attack (TIA), and cerebral infarction without residual deficits; Z79.899 Other long term (current) drug therapy
CPT/HCPCS: 36000; 36415; 71045; 74176; 80053; 80074; 80307; 81001; 82140; 82150; 83605; 83690; 83735; 85025; 86308; 87400; 96360; 96361; 99285; G0480; P9612; Q0162

== ENCOUNTER 2021-01-22 11:50 | Observation (INO) | payer MEDICARE ==
--- NOTE | 2021-01-22 12:13 | XRAY ---
Indication: Ultra mental status. Stroke. Comparison: March 30, 2019. There is again large left frontoparietal old infarct. Increasing encephalomalacia near the vertex and posteriorly favors new finding for old infarct. No acute intracranial hemorrhage, hydrocephalus, or mass effect. Fourth ventricle is midline. Bony calvarium intact. Visualized paranasal sinuses and mastoid air cells are clear. Impression: Large old left cerebral infarct. No acute intracranial abnormalities.
[2021-01-22] MEDS ORDERED: Zofran 4 MG/2 ML VIAL IV ONE (12:17)
[2021-01-22 12:31] LABS: Absolute Neutrophil Ct (ANC) 4.61 (1.4-6.9); BASOPHIL % 0.8 % (0.0-0.4); Basophil (Absolute #) 0.06 (0-0.4); Eosinophil % 0.7 % (0.00-5.0); Eosinophil (Absolute #) 0.05 (0-0.5); Hematocrit 52.2 % (42-50); Hemoglobin 17.7 gm/dl (12.5-18.0); Lymphocytes % 29.3 % (24.0-44.0); Mean Cell Volume 88.6 fl (78-100); Mean Corpuscular Hemoglobin 30.1 pg (26-32); Mean Corpuscular Hgb Concent. 33.9 g/dl (32-36); Mean Platelet Volume 10.2 fl (7.5-11.0); Neutrophil % 61.2 % (36.0-66.0); Platelet Count 148 K/mm3 (150-450); Red Blood Count 5.89 M/mm3 (4.1-5.6); Red Cell Distribution Width 16.3 % (11.5-14.0); White Blood Count 7.5 K/mm3 (4.0-10.5)
--- NOTE | 2021-01-22 12:34 | XRAY ---
Indication: Altered mental status. Comparison: October 22, 2020. Portable chest remains hyperinflated and clear. Heart and mediastinal structures within normal limits. Bony thorax intact again with old right 8 rib fracture. Impression: Continued nonacute hyperinflated chest.
[2021-01-22 12:49] LABS: ALBUMIN 3.8 g/dL (3.5-5.0); ALKALINE PHOSPHATASE 120 U/L (38-126); ANION GAP 12.1 MEQ/L (5-15); BLOOD UREA NITROGEN 3 mg/dL (9-20); CHLORIDE 102 mmol/L (98-107); Calcium 9.2 mg/dL (8.4-10.2); Carbon Dioxide 23 mmol/L (22-30); Creatinine 1 0.76 mg/dL (0.66-1.25); EST GLOMERULAR FILTRATION RATE > 60.0 ML/MIN; ETHYL ALCOHOL < 10 mg/dL (0-10); Glucose 139 mg/dL (74-106); LIPASE 144 U/L (23-300); Potassium 4.2 mmol/L (3.5-5.1); SGOT/AST 55 U/L (17-59); SGPT/ALT 35 U/L (0-50); SODIUM 133 mmol/L (137-145); Total Protein 6.8 g/dL (6.3-8.2)
[2021-01-22] MEDS ORDERED: Sodium Chloride 0.9% 1000 ML 1,000 ML ONE (12:52)
[2021-01-22] MEDS ORDERED: Zofran 4 MG/2 ML VIAL ONE (12:52)
[2021-01-22] MEDS: Sodium Chloride 0.9% 1000 ML 1,000 ML IV SCH (12:55)
--- NOTE | 2021-01-22 12:55 | ERPHSYRPT ---
- History of Present Illness Time Seen by Provider: 01/22/21 11:55 Source: patient, EMS Exam Limitations: clinical condition Patient Subjective Stated Complaint: pt here for right arm pain today, pt is a poor historian. nurse practitioner home assessments told ems is was not himself , pt has hx of stroke and has weakness to right side, pt has hx of falling a lot Triage Nursing Assessment: pt alert, knows name,BD,place,but not date, pt states he has now alcohol today, skin w/d/p, has abrasions and bruising to right arm, and abrasion to right knee, pt was in cont. of urine, and bhavesh area is excoriated, pt cleaned up and depends placed Physician History: 60 years old male with a history of CVA with right-sided residual weakness, wheelchair-bound, frequent falls, alcohol abuse, hypertension, hyperlipidemia is brought in the ER after his age reported that patient was not acting himself, more confused than usual. He is complaining of pain right elbow and forearm. Patient reports daily alcohol intake 6-7 beers and marijuana use. Has multiple falls but denies any recent head injury. Patient has abrasion on the right knee and right forearm/elbow area. Denies any chest pain palpitations or shortness of breath. No abdominal pain nausea vomiting. Patient is answering some question and not fully oriented. History is limited. Allergies/Adverse Reactions: No Known Drug Allergies Allergy (Verified 01/22/21 12:17) Home Medications: Atorvastatin Calcium [Lipitor] 80 mg PO DAILY 08/31/17 [History] Lisinopril 5 mg [Zestril 5 MG] 5 mg PO DAILY 08/31/17 [History] Tamsulosin HCl 0.4 mg [Flomax 0.4 MG] 0.4 mg PO DAILY 08/31/17 [History] Baclofen 10 mg [Lioresal 10 mg] 10 mg PO TID 03/30/19 [History] Hx Tetanus, Diphtheria Vaccination/Date Given: Yes (2017) Hx Influenza Vaccination/Date Given: No Hx Pneumococcal Vaccination/Date Given: No Immunizations Up to Date: Yes Travel Risk - International Travel Have you traveled outside of the country in past 3 weeks: No - Coronavirus Screening Are you exhibiting any of the following symptoms?: No Close contact with a COVID-19 positive Pt in past 14-21 Days: No - Vaccine Status Have you recieved a Covid-19 vaccination: No - Review of Systems All Other Systems: Unable due to condition - Past Medical History Pertinent Past Medical History: Yes Neurological History: Stroke ENT History: No Pertinent History Cardiac History: No Pertinent History Respiratory History: No Pertinent History Endocrine Medical History: No Pertinent History Musculoskeletal History: No Pertinent History GI Medical History: No Pertinent History History: No Pertinent History Psycho-Social History: No Pertinent History Male Reproductive Disorders: Prostate Problems Other Medical History: REPORTS RHUEMATIC FEVER AND HEPITITIS WHEN HE WAS YOUNG BUT OTHERISE NONSIGNIFICANT. - Past Surgical History Past Surgical History: Yes Neuro Surgical History: No Pertinent History Cardiac: No Pertinent History Respiratory: No Pertinent History Gastrointestinal: No Pertinent History Genitourinary: No Pertinent History Musculoskeletal: Orthopedic Surgery Male Surgical History: No Pertinent History Other Surgical History: Colonoscopy - Social History Smoking Status: Current every day smoker How long have you smoked: 30 years Exposure to second hand smoke: Yes Drug Use: none Patient Lives Alone: Yes - Nursing Vital Signs Nursing Vital Signs: Initial Vital Signs Temperature 98.0 F 01/22/21 11:51 Pulse Rate 130 H 01/22/21 11:51 Respiratory Rate 22 01/22/21 11:51 Blood Pressure 159/91 01/22/21 11:51 O2 Sat by Pulse Oximetry 96 01/22/21 11:51 Pain Scale Pain Intensity 0 - Physical Exam General Appearance: no apparent distress, alert Eye Exam: PERRL/EOMI, eyes nml inspection Ears, Nose, Throat Exam: normal ENT inspection, TMs normal, pharynx normal, moist mucous membranes Neck Exam: normal inspection, non-tender, supple, full range of motion Respiratory Exam: normal breath sounds, lungs clear Cardiovascular Exam: normal heart sounds, tachycardia Gastrointestinal/Abdomen Exam: soft, normal bowel sounds, No tenderness Back Exam: normal inspection, No CVA tenderness Extremity Exam: other (Right upper extremity with multiple abrasions, mild tenderness in the forearm, intact passive range of motion of the elbow and wrist.) Neurologic Exam: alert, cooperative, prefabricator II-XII nml as tested, motor deficits, motor weakness (Right upper and lower extremities), No oriented x 3, No normal mood/affect, No nml cerebellar function, No nml station & gait, No sensation nml Skin Exam: normal color SpO2 Interpretation: normal SpO2: 96 O2 Delivery: Nasal Cannula - Course EKG Interpreted by Me: RATE (131), Sinus Tach, NORMAL AXIS, prolonged QT interval, Non-specific ST Changes Ordered Tests: Active Orders 24 hr Category Date Time Status EKG-ER Only STAT Care 01/22/21 12:16 Active IV Insertion STAT Care 01/22/21 12:16 Active NPO (ED) STAT Care 01/22/21 12:16 Active CHEST 1 VIEW (PORTABLE) Stat Exams 01/22/21 12:16 Completed ELBOW (MINIMUM 3 VIEWS) Stat Exams 01/22/21 13:06 Completed HEAD WITHOUT CONTRAST [CT] Stat Exams 01/22/21 11:52 Completed WRIST (MIN 3 VIEWS) Stat Exams 01/22/21 13:06 Completed CBC W DIFF Stat Lab 01/22/21 12:29 Completed CMP Stat Lab 01/22/21 12:29 Completed ETHYL ALCOHOL Stat Lab 01/22/21 12:29 Completed LIPASE Stat Lab 01/22/21 12:29 Completed Lactic Acid Stat Lab 01/22/21 12:28 Completed Lactic Acid Stat Lab 01/22/21 14:31 Completed TROPONIN Q3H Lab 01/22/21 12:29 Completed TROPONIN Q3H Lab 01/22/21 15:13 Completed TROPONIN Q3H Lab 01/22/21 18:30 Ordered TROPONIN Q3H Lab 01/22/21 21:30 Ordered TROPONIN Q3H Lab 01/23/21 00:30 Ordered UA W/RFX UR CULTURE Stat Lab 01/22/21 12:16 Ordered Urine Triage Profile Stat Lab 01/22/21 12:16 Ordered Medication Summary Generic Name Dose Route Start Last Admin Trade Name Freq PRN Reason Stop Dose Admin Sodium Chloride 1,000 mls @ 125 mls/hr 01/22/21 12:30 01/22/21 12:55 Sodium Chloride 0.9% 1000 Ml IV 02/21/21 12:29 125 mls/hr .Q8H SHERRI Administration Discontinued Medications Generic Name Dose Route Start Last Admin Trade Name Freq PRN Reason Stop Dose Admin Lorazepam 1 mg 01/22/21 13:48 01/22/21 15:15 Ativan 2 Mg/1 Ml Vial IV 01/22/21 13:49 1 mg STAT ONE Administration Lorazepam Confirm 01/22/21 15:14 Ativan 2 Mg/1 Ml Vial Administered 01/22/21 15:15 Dose 2 mg .ROUTE .STK-MED ONE Ondansetron HCl 4 mg 01/22/21 12:17 01/22/21 12:56 Zofran 4 Mg/2 Ml Vial IV 01/22/21 12:18 4 mg STAT ONE Administration Ondansetron HCl Confirm 01/22/21 12:52 Zofran 4 Mg/2 Ml Vial Administered 01/22/21 12:53 Dose 4 mg .ROUTE .[facility] ONE Lab/Rad Data: Laboratory Result Diagrams 01/22/21 12:29 01/22/21 12:29 Laboratory Results 01/22/21 01/22/21 01/22/21 Range/Units 15:13 14:31 12:29 WBC (4.0-10.5) K/mm3 RBC (4.1-5.6) M/mm3 Hgb (12.5-18.0) gm/dl Hct (42-50) % MCV (78-100) fl MCH (26-32) pg MCHC (32-36) g/dl RDW (11.5-14.0) % Plt Count (150-450) K/mm3 MPV (7.5-11.0) fl Gran % (36.0-66.0) % Eos # (Auto) (0-0.5) Absolute Lymphs (auto) (1.0-4.6) Absolute Monos (auto) (0.0-1.3) Lymphocytes % (24.0-44.0) % Monocytes % (0.0-12.0) % Eosinophils % (0.00-5.0) % Basophils % (0.0-0.4) % Absolute Granulocytes (1.4-6.9) Basophils # (0-0.4) Sodium (137-145) mmol/L Potassium (3.5-5.1) mmol/L Chloride (98-107) mmol/L Carbon Dioxide (22-30) mmol/L Anion Gap (5-15) MEQ/L BUN (9-20) mg/dL Creatinine (0.66-1.25) mg/dL Estimated GFR ML/MIN Glucose (74-106) mg/dL Lactic Acid 1.7 (0.4-2.0) Calcium (8.4-10.2) mg/dL Total Bilirubin (0.2-1.3) mg/dL AST (17-59) U/L ALT (0-50) U/L Alkaline Phosphatase (38-126) U/L Troponin I < 0.012 < 0.012 (0.000-0.034) ng/mL Serum Total Protein (6.3-8.2) g/dL Albumin (3.5-5.0) g/dL Lipase (23-300) U/L Ethyl Alcohol (0-10) mg/dL 01/22/21 01/22/21 01/22/21 Range/Units 12:29 12:29 12:28 WBC 7.5 (4.0-10.5) K/mm3 RBC 5.89 H (4.1-5.6) M/mm3 Hgb 17.7 (12.5-18.0) gm/dl Hct 52.2 H (42-50) % MCV 88.6 (78-100) fl MCH 30.1 (26-32) pg MCHC 33.9 (32-36) g/dl RDW 16.3 H (11.5-14.0) % Plt Count 148 L (150-450) K/mm3 MPV 10.2 (7.5-11.0) fl Gran % 61.2 (36.0-66.0) % Eos # (Auto) 0.05 (0-0.5) Absolute Lymphs (auto) 2.20 (1.0-4.6) Absolute Monos (auto) 0.60 (0.0-1.3) Lymphocytes % 29.3 (24.0-44.0) % Monocytes % 8.0 (0.0-12.0) % Eosinophils % 0.7 (0.00-5.0) % Basophils % 0.8 (0.0-0.4) % Absolute Granulocytes 4.61 (1.4-6.9) Basophils # 0.06 (0-0.4) Sodium 133 L (137-145) mmol/L Potassium 4.2 (3.5-5.1) mmol/L Chloride 102 (98-107) mmol/L Carbon Dioxide 23 (22-30) mmol/L Anion Gap 12.1 (5-15) MEQ/L BUN 3 L (9-20) mg/dL Creatinine 0.76 (0.66-1.25) mg/dL Estimated GFR > 60.0 ML/MIN Glucose 139 H (74-106) mg/dL Lactic Acid 2.1 H (0.4-2.0) Calcium 9.2 (8.4-10.2) mg/dL Total Bilirubin 1.00 (0.2-1.3) mg/dL AST 55 (17-59) U/L ALT 35 (0-50) U/L Alkaline Phosphatase 120 (38-126) U/L Troponin I (0.000-0.034) ng/mL Serum Total Protein 6.8 (6.3-8.2) g/dL Albumin 3.8 (3.5-5.0) g/dL Lipase 144 (23-300) U/L Ethyl Alcohol < 10 (0-10) mg/dL - Progress Progress: improved, re-examined Progress Note: 01/22/21 17:20 60 years old is evaluated for altered mental status. Patient was alert and pa rtially oriented on presentation, has chronic weakness on the right side which is not any worse than usual. CT head is obtained which is negative for any acute findings. Given fluid bolus and Ativan which calmed him down and he is almost back to his normal. Has normal white count, grossly unremarkable chemistries with mild out elevated lactate of 2.1 without any focus of infection in the chest. Patient refused to urinate. Blood alcohol is normal. This tachycardia I believe is secondary to his alcohol withdrawal as he is a daily drinker. I have contacted home health who do not think patient can take care of himself at home and would not be a good idea to send him back home and would be better served to be sent somewhere else. We have tried to contact Adult Protective Services/licensed social worker but could not. I think with patient's right-sided weakness and habit of drinking with frequent falls, patient would be admitted here and will give him fluids, place him on CIWA protocol and case management will be involved for discharge planning. Discussed with Dr. Fernandez and patient is accepted for admission. Discussed with .: Magalys Counseled pt/family regarding: lab results, diagnosis, rad results - Departure Departure Disposition: Observation Clinical Impression: General weakness, Frequent falls Alcohol withdrawal Qualifiers: Complication of substance-induced condition: uncomplicated Qualified Code(s): F10.230 - Alcohol dependence with withdrawal, uncomplicated AMS (altered mental status) Qualifiers: Altered mental status type: unspecified Qualified Code(s): R41.82 - Altered mental status, unspecified Condition: Stable Critical Care Time: Yes Critical Care Time(excluding separately billable procedures): Critical 30-74 mins Referrals: GIANCARLO TIM [Primary Care Provider] -
--- NOTE | 2021-01-22 13:14 | XRAY ---
Indication: Status post fall. Comparison: None 3 view right elbow demonstrates osteopenia. No other bony, articular, or soft tissue abnormalities.
--- NOTE | 2021-01-22 13:14 | XRAY ---
Indication: Status post fall. Comparison: None 3 view right wrist demonstrates osteopenia and radiocarpal degenerative joint space narrowing. No other bony, articular, or soft tissue abnormalities.
[2021-01-22] MEDS ORDERED: Ativan 2 MG/1 ML VIAL IV ONE (13:48)
[2021-01-22] MEDS ORDERED: Ativan 2 MG/1 ML VIAL ONE (15:14)
[2021-01-22] MEDS ORDERED: Zofran 4 MG/2 ML VIAL IV PRN (20:30)
[2021-01-22] MEDS ORDERED: TYLENOL 325 MG PO PRN (20:30)
[2021-01-22] MEDS ORDERED: Ativan 2 MG/1 ML VIAL IV PRN (20:30)
[2021-01-22] MEDS ORDERED: DUONEB 0.5-3 MG/3 ml Neb IH PRN (20:30)
[2021-01-22] MEDS: Sodium Chloride 0.9% W/ 20 mEq KCl/LITER 1,000 ML IV SCH (20:45)
[2021-01-22 21:56] LABS: Amphetamine,Urine NEGATIVE (NEGATIVE); Barbiturate,Urine NEGATIVE (NEGATIVE); Benzodiazepine,Urine NEGATIVE (NEGATIVE); Cocaine,Urine NEGATIVE (NEGATIVE); Methadone,Urine NEGATIVE (NEGATIVE); Opiate,Urine NEGATIVE (NEGATIVE); PCP,Urine NEGATIVE (NEGATIVE); THC,Urine POSITIVE (NEGATIVE)
[2021-01-22 22:13] LABS: Appearance CLEAR (CLEAR); Bilirubin NEGATIVE (NEGATIVE); Blood NEGATIVE Ery/ul (0-5); Glucose NEGATIVE (NEGATIVE); Ketones NEGATIVE (NEGATIVE); Leukocyte Esterase NEGATIVE (NEGATIVE); Mucus SLIGHT /HPF (NEGATIVE); Nitrite NEGATIVE (NEGATIVE); Protein,Urine Dip 30 (Negative); Specific Gravity 1.015 (1.005-1.025); Urobilinogen 2 mg/dL (0-1)
[2021-01-23] MEDS ORDERED: Toprol Xl 50 MG PO ONE (01:30)
[2021-01-23] MEDS ORDERED: ENOXAPARIN SODIUM SQ ONE (01:30)
[2021-01-23 06:07] LABS: Absolute Neutrophil Ct (ANC) 3.19 (1.4-6.9); BASOPHIL % 0.6 % (0.0-0.4); Basophil (Absolute #) 0.04 (0-0.4); Eosinophil (Absolute #) 0.06 (0-0.5); Hematocrit 46.8 % (42-50); Hemoglobin 15.4 gm/dl (12.5-18.0); Lymphocyte (Absolute #) 2.41 (1.0-4.6); Lymphocytes % 38.4 % (24.0-44.0); Mean Cell Volume 91.8 fl (78-100); Mean Corpuscular Hemoglobin 30.2 pg (26-32); Mean Corpuscular Hgb Concent. 32.9 g/dl (32-36); Mean Platelet Volume 10.5 fl (7.5-11.0); Monocyte (Absolute #) 0.58 (0.0-1.3); Monocytes % 9.2 % (0.0-12.0); Neutrophil % 50.8 % (36.0-66.0); Platelet Count 125 K/mm3 (150-450); Red Cell Distribution Width 16.8 % (11.5-14.0); White Blood Count 6.3 K/mm3 (4.0-10.5)
[2021-01-23 06:24] LABS: ANION GAP 8.1 MEQ/L (5-15); BLOOD UREA NITROGEN 8 mg/dL (9-20); CHLORIDE 103 mmol/L (98-107); Calcium 8.8 mg/dL (8.4-10.2); Carbon Dioxide 24 mmol/L (22-30); Creatinine 1 0.83 mg/dL (0.66-1.25); EST GLOMERULAR FILTRATION RATE > 60.0 ML/MIN; Glucose 100 mg/dL (74-106); SODIUM 131 mmol/L (137-145)
[2021-01-23] MEDS: Sodium Chloride 0.9% W/ 20 mEq KCl/LITER 1,000 ML IV SCH (06:37)
[2021-01-23] MEDS: VITAMIN B-1 100 MG PO SCH (09:27)
[2021-01-23] MEDS: THERAGRAN MULTIVITAMIN PO SCH (09:27)
[2021-01-23] MEDS: FOLATE 1 MG PO SCH (09:27)
[2021-01-23] MEDS ORDERED: PROTONIX 40 MG IV IV SCH (10:00)
--- NOTE | 2021-01-23 11:45 | PCM.HP ---
History of Present Illness - Chief Complaint Chief Complaint: AMS History of Present Illness: is a 60 year old male who presented to the ER with arm pain, he is a very poor historian, prior history of CVA and has multiple falls. apparently home health aid was concerned about his ability to care for himself. he admits to drinking "every other day or so" unable to quantify, he is not interested in quitting. he is interested in rehab stay due to poor functional status and difficulty caring for himself. - Review of Systems Constitutional: No Fever, No Chills Respiratory: No Cough, No Short Of Breath Cardiac: No Chest Pain, No Edema, No Syncope Abdominal/Gastrointestinal: No Abdominal Pain, No Nausea, No Vomiting, No Diarrhea Neurological: Focal Weakness (chronic) Psychological: Alcohol Abuse All Other Systems: Reviewed and Negative Medications & Allergies Home Medications: Home Medication List Atorvastatin Calcium [Lipitor] 80 mg PO DAILY 08/31/17 [History Confirmed 01/22/21] Lisinopril 5 mg [Zestril 5 MG] 5 mg PO DAILY 08/31/17 [History Confirmed 01/22/21] Tamsulosin HCl 0.4 mg [Flomax 0.4 MG] 0.4 mg PO DAILY 08/31/17 [History Confirmed 01/22/21] Baclofen 10 mg [Lioresal 10 mg] 10 mg PO TID 03/30/19 [History Confirmed 01/22/21] Aspirin EC 325 mg [Ecotrin 325 MG] 325 mg PO DAILY #30 tablet.ec 04/02/19 [Rx Confirmed 01/22/21] PANTOPRAZOLE 40 mg Tablet [Protonix 40MG Tablet] 40 mg PO QAM #30 tab 04/02/19 [Rx Confirmed 01/22/21] Sertraline HCl 50 mg [Zoloft 50 mg Tablet] 150 mg PO DAILY #90 tab 04/02/19 [Rx Confirmed 01/22/21] Ondansetron ODT 4 MG [Zofran Odt 4 mg] 4 mg PO Q6H PRN PRN #10 tab.rapdis 10/22/20 [Rx Confirmed 01/22/21] Allergies/Adverse Reactions: Allergies Allergy/AdvReac Type Severity Reaction Status Date / Time No Known Drug Allergies Allergy Verified 01/22/21 12:17 - Past Medical History Past Medical History: Yes Neurological History: Stroke ENT History: No Pertinent History Cardiac History: No Pertinent History Respiratory History: No Pertinent History Endocrine Medical History: No Pertinent History Musculoskelatal History: No Pertinent History GI Medical History: No Pertinent History History: No Pertinent History Pyscho-Social History: No Pertinent History Male Reproductive Disorders: Prostate Problems Comment: REPORTS RHUEMATIC FEVER AND HEPITITIS WHEN HE WAS YOUNG BUT OTHERISE NONSIGNIFICANT. - Past Surgical History Past Surgical History: Yes Neuro Surgical History: No Pertinent History Cardiac History: No Pertinent History Respiratory Surgery: No Pertinent History GI Surgical History: No Pertinent History Genitourinary Surgical Hx: No Pertinent History Musculskeletal Surgical Hx: Orthopedic Surgery Male Surgical History: No Pertinent History Other Surgical History: Colonoscopy - Social History Smoking Status: Current every day smoker How long have you smoked: mostoflife Exposure to second hand smoke: No Alcohol: Heavy, Daily Drug Use: none - Physical Exam Vital Signs: Vital Signs - 24 hr Temp Pulse Resp BP Pulse Ox 01/23/21 08:00 97.1 F 84 16 141/76 91 L 01/23/21 04:18 98.1 F 106 H 28 H 122/82 96 01/23/21 00:03 98.2 F 98 H 20 134/74 95 01/22/21 21:22 97.8 F 103 H 18 127/75 93 L 01/22/21 18:02 97.8 F 104 H 18 139/98 98 01/22/21 17:27 97.8 F 109 H 20 139/98 98 01/22/21 17:23 96 01/22/21 16:06 97.8 F 95 H 20 144/66 98 01/22/21 15:19 98.0 F 119 H 20 128/99 98 01/22/21 14:54 120 H 18 136/91 96 01/22/21 13:01 98.0 F 115 H 20 159/91 98 01/22/21 11:51 98.0 F 130 H 22 159/91 96 General Appearance: no apparent distress Neurologic Exam: alert, oriented x 3, cooperative, motor weakness Respiratory Exam: normal breath sounds, lungs clear, No respiratory distress Cardiovascular Exam: regular rate/rhythm Gastrointestinal/Abdomen Exam: soft, normal bowel sounds, No tenderness, No mass Extremity Exam: normal inspection, normal range of motion, pelvis stable Skin Exam: normal color, warm, dry, No rash Results - Labs Lab/Micro Results: Lab Results-Last 24 Hours 01/22/21 01/22/21 01/22/21 Range/Units 12:28 12:29 12:29 WBC 7.5 (4.0-10.5) K/mm3 RBC 5.89 H (4.1-5.6) M/mm3 Hgb 17.7 (12.5-18.0) gm/dl Hct 52.2 H (42-50) % MCV 88.6 (78-100) fl MCH 30.1 (26-32) pg MCHC 33.9 (32-36) g/dl RDW 16.3 H (11.5-14.0) % Plt Count 148 L (150-450) K/mm3 MPV 10.2 (7.5-11.0) fl Gran % 61.2 (36.0-66.0) % Eos # (Auto) 0.05 (0-0.5) Absolute Lymphs (auto) 2.20 (1.0-4.6) Absolute Monos (auto) 0.60 (0.0-1.3) Lymphocytes % 29.3 (24.0-44.0) % Monocytes % 8.0 (0.0-12.0) % Eosinophils % 0.7 (0.00-5.0) % Basophils % 0.8 (0.0-0.4) % Absolute Granulocytes 4.61 (1.4-6.9) Basophils # 0.06 (0-0.4) Sodium 133 L (137-145) mmol/L Potassium 4.2 (3.5-5.1) mmol/L Chloride 102 (98-107) mmol/L Carbon Dioxide 23 (22-30) mmol/L Anion Gap 12.1 (5-15) MEQ/L BUN 3 L (9-20) mg/dL Creatinine 0.76 (0.66-1.25) mg/dL Estimated GFR > 60.0 ML/MIN Glucose 139 H (74-106) mg/dL Lactic Acid 2.1 H (0.4-2.0) Calcium 9.2 (8.4-10.2) mg/dL Total Bilirubin 1.00 (0.2-1.3) mg/dL AST 55 (17-59) U/L ALT 35 (0-50) U/L Alkaline Phosphatase 120 (38-126) U/L Troponin I (0.000-0.034) ng/mL Serum Total Protein 6.8 (6.3-8.2) g/dL Albumin 3.8 (3.5-5.0) g/dL Lipase 144 (23-300) U/L Urine Color (YELLOW) Urine Appearance (CLEAR) Urine pH (5-6) Ur Specific [place] (1.005-1.025) Urine Protein (Negative) Urine Ketones (NEGATIVE) Urine Blood (0-5) [place]/ul Urine Nitrite (NEGATIVE) Urine Bilirubin (NEGATIVE) Urine Urobilinogen (0-1) mg/dL Ur Leukocyte Esterase (NEGATIVE) Urine WBC (Auto) (0-5) /HPF Urine RBC (Auto) (0-2) /HPF U Epithel Cells (Auto) (FEW) /HPF Urine Bacteria (Auto) (NEGATIVE) /HPF Urine Mucus (Auto) (NEGATIVE) /HPF Urine Culture Reflexed (NO) Urine Glucose (NEGATIVE) mg/dL Urine Opiates Level (NEGATIVE) Ur Methadone (NEGATIVE) Urine Barbiturates (NEGATIVE) Ur Phencyclidine (PCP) (NEGATIVE) Urine Amphetamine (NEGATIVE) U Benzodiazepine Level (NEGATIVE) Urine Cocaine (NEGATIVE) Urine Marijuana (THC) (NEGATIVE) Ethyl Alcohol < 10 (0-10) mg/dL SARS-CoV-2 (PCR) (NEGATIVE) 01/22/21 01/22/21 01/22/21 Range/Units 12:29 14:31 15:13 WBC (4.0-10.5) K/mm3 RBC (4.1-5.6) M/mm3 Hgb (12.5-18.0) gm/dl Hct (42-50) % MCV (78-100) fl MCH (26-32) pg MCHC (32-36) g/dl RDW (11.5-14.0) % Plt Count (150-450) K/mm3 MPV (7.5-11.0) fl Gran % (36.0-66.0) % Eos # (Auto) (0-0.5) Absolute Lymphs (auto) (1.0-4.6) Absolute Monos (auto) (0.0-1.3) Lymphocytes % (24.0-44.0) % Monocytes % (0.0-12.0) % Eosinophils % (0.00-5.0) % Basophils % (0.0-0.4) % Absolute Granulocytes (1.4-6.9) Basophils # (0-0.4) Sodium (137-145) mmol/L Potassium (3.5-5.1) mmol/L Chloride (98-107) mmol/L Carbon Dioxide (22-30) mmol/L Anion Gap (5-15) MEQ/L BUN (9-20) mg/dL Creatinine (0.66-1.25) mg/dL Estimated GFR ML/MIN Glucose (74-106) mg/dL Lactic Acid 1.7 (0.4-2.0) Calcium (8.4-10.2) mg/dL Total Bilirubin (0.2-1.3) mg/dL AST (17-59) U/L ALT (0-50) U/L Alkaline Phosphatase (38-126) U/L Troponin I < 0.012 < 0.012 (0.000-0.034) ng/mL Serum Total Protein (6.3-8.2) g/dL Albumin (3.5-5.0) g/dL Lipase (23-300) U/L Urine Color (YELLOW) Urine Appearance (CLEAR) Urine pH (5-6) Ur Specific [place] (1.005-1.025) Urine Protein (Negative) Urine Ketones (NEGATIVE) Urine Blood (0-5) [place]/ul Urine Nitrite (NEGATIVE) Urine Bilirubin (NEGATIVE) Urine Urobilinogen (0-1) mg/dL Ur Leukocyte Esterase (NEGATIVE) Urine WBC (Auto) (0-5) /HPF Urine RBC (Auto) (0-2) /HPF U Epithel Cells (Auto) (FEW) /HPF Urine Bacteria (Auto) (NEGATIVE) /HPF Urine Mucus (Auto) (NEGATIVE) /HPF Urine Culture Reflexed (NO) Urine Glucose (NEGATIVE) mg/dL Urine Opiates Level (NEGATIVE) Ur Methadone (NEGATIVE) Urine Barbiturates (NEGATIVE) Ur Phencyclidine (PCP) (NEGATIVE) Urine Amphetamine (NEGATIVE) U Benzodiazepine Level (NEGATIVE) Urine Cocaine (NEGATIVE) Urine Marijuana (THC) (NEGATIVE) Ethyl Alcohol (0-10) mg/dL SARS-CoV-2 (PCR) (NEGATIVE) 01/22/21 01/22/21 01/22/21 Range/Units 18:02 18:15 21:20 WBC (4.0-10.5) K/mm3 RBC (4.1-5.6) M/mm3 Hgb (12.5-18.0) gm/dl Hct (42-50) % MCV (78-100) fl MCH (26-32) pg MCHC (32-36) g/dl RDW (11.5-14.0) % Plt Count (150-450) K/mm3 MPV (7.5-11.0) fl Gran % (36.0-66.0) % Eos # (Auto) (0-0.5) Absolute Lymphs (auto) (1.0-4.6) Absolute Monos (auto) (0.0-1.3) Lymphocytes % (24.0-44.0) % Monocytes % (0.0-12.0) % Eosinophils % (0.00-5.0) % Basophils % (0.0-0.4) % Absolute Granulocytes (1.4-6.9) Basophils # (0-0.4) Sodium (137-145) mmol/L Potassium (3.5-5.1) mmol/L Chloride (98-107) mmol/L Carbon Dioxide (22-30) mmol/L Anion Gap (5-15) MEQ/L BUN (9-20) mg/dL Creatinine (0.66-1.25) mg/dL Estimated GFR ML/MIN Glucose (74-106) mg/dL Lactic Acid (0.4-2.0) Calcium (8.4-10.2) mg/dL Total Bilirubin (0.2-1.3) mg/dL AST (17-59) U/L ALT (0-50) U/L Alkaline Phosphatase (38-126) U/L Troponin I < 0.012 < 0.012 (0.000-0.034) ng/mL Serum Total Protein (6.3-8.2) g/dL Albumin (3.5-5.0) g/dL Lipase (23-300) U/L Urine Color (YELLOW) Urine Appearance (CLEAR) Urine pH (5-6) Ur Specific [place] (1.005-1.025) Urine Protein (Negative) Urine Ketones (NEGATIVE) Urine Blood (0-5) [place]/ul Urine Nitrite (NEGATIVE) Urine Bilirubin (NEGATIVE) Urine Urobilinogen (0-1) mg/dL Ur Leukocyte Esterase (NEGATIVE) Urine WBC (Auto) (0-5) /HPF Urine RBC (Auto) (0-2) /HPF U Epithel Cells (Auto) (FEW) /HPF Urine Bacteria (Auto) (NEGATIVE) /HPF Urine Mucus (Auto) (NEGATIVE) /HPF Urine Culture Reflexed (NO) Urine Glucose (NEGATIVE) mg/dL Urine Opiates Level (NEGATIVE) Ur Methadone (NEGATIVE) Urine Barbiturates (NEGATIVE) Ur Phencyclidine (PCP) (NEGATIVE) Urine Amphetamine (NEGATIVE) U Benzodiazepine Level (NEGATIVE) Urine Cocaine (NEGATIVE) Urine Marijuana (THC) (NEGATIVE) Ethyl Alcohol (0-10) mg/dL SARS-CoV-2 (PCR) NEGATIVE (NEGATIVE) 01/22/21 01/22/21 01/23/21 Range/Units 21:33 21:33 00:20 WBC (4.0-10.5) K/mm3 RBC (4.1-5.6) M/mm3 Hgb (12.5-18.0) gm/dl Hct (42-50) % MCV (78-100) fl MCH (26-32) pg MCHC (32-36) g/dl RDW (11.5-14.0) % Plt Count (150-450) K/mm3 MPV (7.5-11.0) fl Gran % (36.0-66.0) % Eos # (Auto) (0-0.5) Absolute Lymphs (auto) (1.0-4.6) Absolute Monos (auto) (0.0-1.3) Lymphocytes % (24.0-44.0) % Monocytes % (0.0-12.0) % Eosinophils % (0.00-5.0) % Basophils % (0.0-0.4) % Absolute Granulocytes (1.4-6.9) Basophils # (0-0.4) Sodium (137-145) mmol/L Potassium (3.5-5.1) mmol/L Chloride (98-107) mmol/L Carbon Dioxide (22-30) mmol/L Anion Gap (5-15) MEQ/L BUN (9-20) mg/dL Creatinine (0.66-1.25) mg/dL Estimated GFR ML/MIN Glucose (74-106) mg/dL Lactic Acid (0.4-2.0) Calcium (8.4-10.2) mg/dL Total Bilirubin (0.2-1.3) mg/dL AST (17-59) U/L ALT (0-50) U/L Alkaline Phosphatase (38-126) U/L Troponin I < 0.012 (0.000-0.034) ng/mL Serum Total Protein (6.3-8.2) g/dL Albumin (3.5-5.0) g/dL Lipase (23-300) U/L Urine Color INDU (YELLOW) Urine Appearance CLEAR (CLEAR) Urine pH 7.0 (5-6) Ur Specific [place] 1.015 (1.005-1.025) Urine Protein 30 (Negative) Urine Ketones NEGATIVE (NEGATIVE) Urine Blood NEGATIVE (0-5) [place]/ul Urine Nitrite NEGATIVE (NEGATIVE) Urine Bilirubin NEGATIVE (NEGATIVE) Urine Urobilinogen 2 (0-1) mg/dL Ur Leukocyte Esterase NEGATIVE (NEGATIVE) Urine WBC (Auto) NONE (0-5) /HPF Urine RBC (Auto) NONE (0-2) /HPF U Epithel Cells (Auto) NONE (FEW) /HPF Urine Bacteria (Auto) NONE (NEGATIVE) /HPF Urine Mucus (Auto) SLIGHT (NEGATIVE) /HPF Urine Culture Reflexed NO (NO) Urine Glucose NEGATIVE (NEGATIVE) mg/dL Urine Opiates Level NEGATIVE (NEGATIVE) Ur Methadone NEGATIVE (NEGATIVE) Urine Barbiturates NEGATIVE (NEGATIVE) Ur Phencyclidine (PCP) NEGATIVE (NEGATIVE) Urine Amphetamine NEGATIVE (NEGATIVE) U Benzodiazepine Level NEGATIVE (NEGATIVE) Urine Cocaine NEGATIVE (NEGATIVE) Urine Marijuana (THC) POSITIVE (NEGATIVE) Ethyl Alcohol (0-10) mg/dL SARS-CoV-2 (PCR) (NEGATIVE) 01/23/21 01/23/21 Range/Units 05:35 05:35 WBC 6.3 (4.0-10.5) K/mm3 RBC 5.10 (4.1-5.6) M/mm3 Hgb 15.4 (12.5-18.0) gm/dl Hct 46.8 (42-50) % MCV 91.8 (78-100) fl MCH 30.2 (26-32) pg MCHC 32.9 (32-36) g/dl RDW 16.8 H (11.5-14.0) % Plt Count 125 L (150-450) K/mm3 MPV 10.5 (7.5-11.0) fl Gran % 50.8 (36.0-66.0) % Eos # (Auto) 0.06 (0-0.5) Absolute Lymphs (auto) 2.41 (1.0-4.6) Absolute Monos (auto) 0.58 (0.0-1.3) Lymphocytes % 38.4 (24.0-44.0) % Monocytes % 9.2 (0.0-12.0) % Eosinophils % 1.0 (0.00-5.0) % Basophils % 0.6 (0.0-0.4) % Absolute Granulocytes 3.19 (1.4-6.9) Basophils # 0.04 (0-0.4) Sodium 131 L (137-145) mmol/L Potassium 4.0 (3.5-5.1) mmol/L Chloride 103 (98-107) mmol/L Carbon Dioxide 24 (22-30) mmol/L Anion Gap 8.1 (5-15) MEQ/L BUN 8 L (9-20) mg/dL Creatinine 0.83 (0.66-1.25) mg/dL Estimated GFR > 60.0 ML/MIN Glucose 100 (74-106) mg/dL Lactic Acid (0.4-2.0) Calcium 8.8 (8.4-10.2) mg/dL Total Bilirubin (0.2-1.3) mg/dL AST (17-59) U/L ALT (0-50) U/L Alkaline Phosphatase (38-126) U/L Troponin I (0.000-0.034) ng/mL Serum Total Protein (6.3-8.2) g/dL Albumin (3.5-5.0) g/dL Lipase (23-300) U/L Urine Color (YELLOW) Urine Appearance (CLEAR) Urine pH (5-6) Ur Specific [place] (1.005-1.025) Urine Protein (Negative) Urine Ketones (NEGATIVE) Urine Blood (0-5) [place]/ul Urine Nitrite (NEGATIVE) Urine Bilirubin (NEGATIVE) Urine Urobilinogen (0-1) mg/dL Ur Leukocyte Esterase (NEGATIVE) Urine WBC (Auto) (0-5) /HPF Urine RBC (Auto) (0-2) /HPF U Epithel Cells (Auto) (FEW) /HPF Urine Bacteria (Auto) (NEGATIVE) /HPF Urine Mucus (Auto) (NEGATIVE) /HPF Urine Culture Reflexed (NO) Urine Glucose (NEGATIVE) mg/dL Urine Opiates Level (NEGATIVE) Ur Methadone (NEGATIVE) Urine Barbiturates (NEGATIVE) Ur Phencyclidine (PCP) (NEGATIVE) Urine Amphetamine (NEGATIVE) U Benzodiazepine Level (NEGATIVE) Urine Cocaine (NEGATIVE) Urine Marijuana (THC) (NEGATIVE) Ethyl Alcohol (0-10) mg/dL SARS-CoV-2 (PCR) (NEGATIVE) - Radiology Impressions Radiology Exams & Impressions: Radiology Procedures Category Date Time Status CHEST 1 VIEW (PORTABLE) Stat Exams 01/22/21 12:16 Completed ELBOW (MINIMUM 3 VIEWS) Stat Exams 01/22/21 13:06 Completed HEAD WITHOUT CONTRAST [CT] Stat Exams 01/22/21 11:52 Completed WRIST (MIN 3 VIEWS) Stat Exams 01/22/21 13:06 Completed - Other Procedures and Tests Respiratory Therapy 01/23/21 11:14 EKG ROUTINE Assessment/Plan (1) Atrial fibrillation, new onset Current Visit: Yes Status: Acute Assessment & Plan: rate is currently controlled with addition of metoprolol, received lovenox x 1 last night, will transition to eliquis today. check tsh, troponin negative. will obtain echo Code(s): I48.91 - UNSPECIFIED ATRIAL FIBRILLATION (2) AMS (altered mental status) Current Visit: Yes Status: Acute Qualifiers: Altered mental status type: unspecified Qualified Code(s): R41.82 - Altered mental status, unspecified Code(s): R41.82 - ALTERED MENTAL STATUS, UNSPECIFIED (3) Weakness of right upper extremity Current Visit: No Status: Acute Code(s): M62.81 - MUSCLE WEAKNESS (GENERALIZED) (4) Alcohol abuse Current Visit: No Status: Chronic Assessment & Plan: on detox protocol, neuro deficits and alcohol use cloud picture substantially but he reports last drink was 2 days ago so will watch closely for detox signs/symptoms Code(s): F10.10 - ALCOHOL ABUSE, UNCOMPLICATED (5) History of CVA (cerebrovascular accident) Current Visit: No Status: Chronic Assessment & Plan: patient agrees to rehab stay, appears unable to care for himself. Code(s): Z86.73 - PRSNL HX OF TIA (TIA), AND CEREB INFRC W/O RESID DEFICITS
[2021-01-23] MEDS ORDERED: Ecotrin 325 MG PO SCH (14:15)
[2021-01-23] MEDS: Flomax 0.4 MG PO SCH (15:22)
[2021-01-23] MEDS: LIORESAL 10 MG PO SCH ×2 (15:22→22:20)
[2021-01-23] MEDS: Zestril 5 MG PO SCH (15:22)
[2021-01-23] MEDS: ZOLOFT 50 MG TABLET PO SCH (15:22)
[2021-01-23] MEDS: Protonix 40MG Tablet PO SCH (15:22)
[2021-01-23] MEDS: Sodium Chloride 0.9% 1000 ML 1,000 ML IV SCH (20:50)
[2021-01-23] MEDS: ELIQUIS 2.5 MG TABLET PO SCH (22:20)
[2021-01-23] MEDS: LIPITOR 40MG PO SCH (22:20)
[2021-01-24 06:35] LABS: Absolute Neutrophil Ct (ANC) 3.03 (1.4-6.9); BASOPHIL % 0.5 % (0.0-0.4); Basophil (Absolute #) 0.03 (0-0.4); Eosinophil % 1.4 % (0.00-5.0); Eosinophil (Absolute #) 0.08 (0-0.5); Hematocrit 46.4 % (42-50); Hemoglobin 15.2 gm/dl (12.5-18.0); Lymphocyte (Absolute #) 1.91 (1.0-4.6); Lymphocytes % 34.5 % (24.0-44.0); Mean Cell Volume 91.5 fl (78-100); Mean Corpuscular Hgb Concent. 32.8 g/dl (32-36); Mean Platelet Volume 10.7 fl (7.5-11.0); Monocyte (Absolute #) 0.49 (0.0-1.3); Monocytes % 8.8 % (0.0-12.0); Neutrophil % 54.8 % (36.0-66.0); Platelet Count 128 K/mm3 (150-450); Red Blood Count 5.07 M/mm3 (4.1-5.6); Red Cell Distribution Width 15.9 % (11.5-14.0); White Blood Count 5.5 K/mm3 (4.0-10.5)
[2021-01-24 06:52] LABS: ALBUMIN 3.1 g/dL (3.5-5.0); ALKALINE PHOSPHATASE 88 U/L (38-126); ANION GAP 8.1 MEQ/L (5-15); BLOOD UREA NITROGEN 7 mg/dL (9-20); CHLORIDE 106 mmol/L (98-107); Carbon Dioxide 24 mmol/L (22-30); Creatinine 1 0.83 mg/dL (0.66-1.25); EST GLOMERULAR FILTRATION RATE > 60.0 ML/MIN; Glucose 151 mg/dL (74-106); MAGNESIUM 2.3 mg/dL (1.6-2.3); Potassium 3.6 mmol/L (3.5-5.1); SGOT/AST 43 U/L (17-59); SGPT/ALT 32 U/L (0-50); SODIUM 134 mmol/L (137-145); Total Protein 5.8 g/dL (6.3-8.2)
--- NOTE | 2021-01-24 08:14 | PCM.NOTE ---
Date and Time: 01/24/21811 Subjective Assessment: patient is much more alert and conversant, he notes he is thinking and speaking more clearly and doing better. he is taking po, has no complaints today Objective Exam General Appearance: no apparent distress, alert Neurologic Exam: motor deficits Respiratory Exam: normal breath sounds, lungs clear, No respiratory distress Cardiovascular Exam: regular rate/rhythm, normal heart sounds Gastrointestinal/Abdomen Exam: soft, No tenderness, No mass Extremity Exam: normal inspection, normal range of motion OBJECTIVE DATA Vital Signs: Vital Signs - 24 hr Temp Pulse Resp BP Pulse Ox 01/24/21 07:45 97.0 F 99 H 17 109/66 96 01/24/21 04:00 98.2 F 96 H 20 111/57 94 L 01/24/21 00:07 98.3 F 94 H 20 123/66 95 01/23/21 20:00 98.1 F 95 H 19 118/74 95 01/23/21 16:00 98.6 F 92 H 16 146/85 94 L 01/23/21 12:00 98.2 F 88 16 117/74 90 L Pain Assessment - Last Documented Pain Intensity 0 Intake and Output: Intake & Output 01/21/21 01/22/21 01/23/21 01/24/21 11:59 11:59 11:59 11:59 Intake Total 1105 1080 Balance 1105 1080 Weight 115.6 kg 116.2 kg Lab Results: Lab Results-Last 24 Hours 01/23/21 01/24/21 01/24/21 Range/Units 06:00 05:40 05:40 WBC 5.5 (4.0-10.5) K/mm3 RBC 5.07 (4.1-5.6) M/mm3 Hgb 15.2 (12.5-18.0) gm/dl Hct 46.4 (42-50) % MCV 91.5 (78-100) fl MCH 30.0 (26-32) pg MCHC 32.8 (32-36) g/dl RDW 15.9 H (11.5-14.0) % Plt Count 128 L (150-450) K/mm3 MPV 10.7 (7.5-11.0) fl Gran % 54.8 (36.0-66.0) % Eos # (Auto) 0.08 (0-0.5) Absolute Lymphs (auto) 1.91 (1.0-4.6) Absolute Monos (auto) 0.49 (0.0-1.3) Lymphocytes % 34.5 (24.0-44.0) % Monocytes % 8.8 (0.0-12.0) % Eosinophils % 1.4 (0.00-5.0) % Basophils % 0.5 (0.0-0.4) % Absolute Granulocytes 3.03 (1.4-6.9) Basophils # 0.03 (0-0.4) Sodium 134 L (137-145) mmol/L Potassium 3.6 (3.5-5.1) mmol/L Chloride 106 (98-107) mmol/L Carbon Dioxide 24 (22-30) mmol/L Anion Gap 8.1 (5-15) MEQ/L BUN 7 L (9-20) mg/dL Creatinine 0.83 (0.66-1.25) mg/dL Estimated GFR > 60.0 ML/MIN Glucose 151 H (74-106) mg/dL Calcium 9.0 (8.4-10.2) mg/dL Magnesium 2.3 (1.6-2.3) mg/dL Total Bilirubin 0.70 (0.2-1.3) mg/dL AST 43 (17-59) U/L ALT 32 (0-50) U/L Alkaline Phosphatase 88 (38-126) U/L Serum Total Protein 5.8 L (6.3-8.2) g/dL Albumin 3.1 L (3.5-5.0) g/dL TSH 3rd Generation 3.660 (0.47-4.68) mIU/L Radiology Exams: Radiology Procedures Category Date Time Status CHEST 1 VIEW (PORTABLE) Stat Exams 01/22/21 12:16 Completed ECHO W/2D AND DOPPLER [US] Routine Exams 01/25/21 Ordered ELBOW (MINIMUM 3 VIEWS) Stat Exams 01/22/21 13:06 Completed HEAD WITHOUT CONTRAST [CT] Stat Exams 01/22/21 11:52 Completed WRIST (MIN 3 VIEWS) Stat Exams 01/22/21 13:06 Completed Assessment/Plan (1) Atrial fibrillation, new onset Current Visit: Yes Status: Acute Assessment & Plan: rate is controlled with toprol, started on eliquis Code(s): I48.91 - UNSPECIFIED ATRIAL FIBRILLATION (2) AMS (altered mental status) Current Visit: Yes Status: Acute Qualifiers: Altered mental status type: unspecified Qualified Code(s): R41.82 - Altered mental status, unspecified Code(s): R41.82 - ALTERED MENTAL STATUS, UNSPECIFIED (3) Weakness of right upper extremity Current Visit: No Status: Acute Code(s): M62.81 - MUSCLE WEAKNESS (GENERALIZED) (4) Alcohol abuse Current Visit: No Status: Chronic Code(s): F10.10 - ALCOHOL ABUSE, UNCOMPLICATED (5) History of CVA (cerebrovascular accident) Current Visit: No Status: Chronic Code(s): Z86.73 - PRSNL HX OF TIA (TIA), AND CEREB INFRC W/O RESID DEFICITS
[2021-01-24] MEDS: Flomax 0.4 MG PO SCH (09:33)
[2021-01-24] MEDS: Zestril 5 MG PO SCH (09:33)
[2021-01-24] MEDS: THERAGRAN MULTIVITAMIN PO SCH (09:34)
[2021-01-24] MEDS: Toprol Xl 50 MG PO SCH (09:34)
[2021-01-24] MEDS: ELIQUIS 2.5 MG TABLET PO SCH ×2 (09:34→22:03)
[2021-01-24] MEDS: FOLATE 1 MG PO SCH (09:34)
[2021-01-24] MEDS: Protonix 40MG Tablet PO SCH (09:34)
[2021-01-24] MEDS: VITAMIN B-1 100 MG PO SCH (09:34)
[2021-01-24] MEDS: ZOLOFT 50 MG TABLET PO SCH (09:34)
[2021-01-24] MEDS: LIORESAL 10 MG PO SCH ×3 (09:34→22:03)
[2021-01-24] MEDS ORDERED: NON-FORMULARY ITEM (Atorvastatin Calcium [Lipitor] 80 MG) PO SCH (10:00)
[2021-01-24] MEDS: LIPITOR 40MG PO SCH (22:03)
--- NOTE | 2021-01-25 08:21 | PCM.NOTE ---
Date and Time: 01/25/21 0820 Subjective Assessment: patient is stable, feeling better. denies any acute problems, agrees to rehab stay due to difficulty caring for himself, prior stroke with deficits and new a fib Objective Exam General Appearance: no apparent distress, alert Neurologic Exam: motor deficits Respiratory Exam: normal breath sounds, lungs clear, No respiratory distress Cardiovascular Exam: regular rate/rhythm, normal heart sounds Gastrointestinal/Abdomen Exam: soft, No tenderness, No mass Extremity Exam: normal inspection, normal range of motion OBJECTIVE DATA Vital Signs: Vital Signs - 24 hr Temp Pulse Resp BP Pulse Ox 01/25/21 04:00 98.2 F 78 20 142/73 95 01/25/21 00:10 98.1 F 69 18 111/64 95 01/24/21 20:00 98.5 F 72 20 103/72 96 01/24/21 16:00 97.0 F 87 18 111/82 98 01/24/21 12:00 96.2 F 100 H 18 138/80 94 L Pain Assessment - Last Documented Pain Intensity 2 Intake and Output: Intake & Output 01/22/21 01/23/21 01/24/21 01/25/21 11:59 11:59 11:59 11:59 Intake Total 1105 1080 1120 Output Total 225 Balance 1105 1080 895 Weight 115.6 kg 116.2 kg 114 kg Radiology Exams: Radiology Procedures Category Date Time Status ECHO W/2D AND DOPPLER [US] Routine Exams 01/25/21 Ordered Assessment/Plan (1) Atrial fibrillation, new onset Current Visit: Yes Status: Acute Assessment & Plan: rate controlled, on eliquis, await ecf placement Code(s): I48.91 - UNSPECIFIED ATRIAL FIBRILLATION (2) AMS (altered mental status) Current Visit: Yes Status: Acute Qualifiers: Altered mental status type: unspecified Qualified Code(s): R41.82 - Altered mental status, unspecified Code(s): R41.82 - ALTERED MENTAL STATUS, UNSPECIFIED (3) Weakness of right upper extremity Current Visit: No Status: Acute Code(s): M62.81 - MUSCLE WEAKNESS (GENER ALIZED) (4) Alcohol abuse Current Visit: No Status: Chronic Code(s): F10.10 - ALCOHOL ABUSE, UNCOMPLICATED (5) History of CVA (cerebrovascular accident) Current Visit: No Status: Chronic Code(s): Z86.73 - PRSNL HX OF TIA (TIA), AND CEREB INFRC W/O RESID DEFICITS
[2021-01-25 08:25] VITALS: BP 134/81; PULSE 92; O2SAT 96
[2021-01-25] MEDS: ZOLOFT 50 MG TABLET PO SCH (10:01)
[2021-01-25] MEDS: FOLATE 1 MG PO SCH (10:01)
[2021-01-25] MEDS: VITAMIN B-1 100 MG PO SCH (10:01)
[2021-01-25] MEDS: LIORESAL 10 MG PO SCH (10:01)
[2021-01-25] MEDS: Toprol Xl 50 MG PO SCH (10:01)
[2021-01-25] MEDS: Zestril 5 MG PO SCH (10:02)
[2021-01-25] MEDS: ELIQUIS 2.5 MG TABLET PO SCH (10:02)
[2021-01-25] MEDS: Protonix 40MG Tablet PO SCH (10:02)
[2021-01-25] MEDS: THERAGRAN MULTIVITAMIN PO SCH (10:02)
[2021-01-25] MEDS: Flomax 0.4 MG PO SCH (10:02)
--- NOTE | 2021-01-25 10:31 | PCM.DS ---
Discharge Summary Date of Admission: 01/22/21 20:23 Admitting Physician: GIANCARLO TIM Primary Care Provider: GIANCARLO TIM Allergies Allergies No Known Drug Allergies Allergy (Verified 01/22/21 12:17) Hospital Summary - Hospital Course Hospital Course: patient was admitted, he has a history of prior CVA with deficits, alcohol abuse. he has new onset a fib, rate controlled with toprol and started on eliquis. was on detox protocol but no overt signs of withdrawal. he was unkempt and had poor hygiene on arrival, initially agreed to rehab stay but now refuses, will return home with home health and refuses alcohol treatment. he is able to make his own decisions. - Vitals & Intake/Output Vital Signs: Vital Signs Temperature 97.5 F 01/25/21 08:00 Pulse Rate 92 H 01/25/21 08:00 Respiratory Rate 18 01/25/21 08:00 Blood Pressure 134/81 01/25/21 08:00 O2 Sat by Pulse Oximetry 96 01/25/21 08:00 Intake & Output: Intake & Output 01/22/21 01/23/21 01/24/21 01/25/21 11:59 11:59 11:59 11:59 Intake Total 1105 1080 1360 Output Total 425 Balance 1105 1080 935 Weight 115.6 kg 116.2 kg 114 kg - Lab Result Diagrams: 01/24/21 05:40 01/24/21 05:40 - Radiology Exams Ordered Rad Exams-Entire Visit: Radiology Procedures Category Date Time Status ECHO W/2D AND DOPPLER [US] Routine Exams 01/25/21 Ordered - Procedures and Test Procedures and Tests throughout Hospitalization: Therapy Orders & Screens 01/22/21 21:56 PT Screen per Nursing Assess ONCE Comment: Protocol Order Physician Instructions: Greater than 3 points order PT Admission Screenin Reason For Exam: Triggered on Admission Diagnosis: AMS Open Wound/Cellutlitis/Pressure Ulcers: No Acute Fx/ORIF/Change in wt bearing status: No Severe MUSCULOSKELETAL pain: Yes: right arm/hx of CVA ADL Dysfunction: Yes Acute CVA w/Hemiparesis/Hemiplegia: Yes Decreased Functional Mobility/Strength: Yes Sprain/Strain: No Acute Post-op Mobility Dysfunction: No Total Points: 14 Smoking Cessation Education ONCE Comment: Diagnosis: AMS Smoking Status: Current every day smoker How long have you smoked: mostoflife Have you smoked in the past 12 months: Yes Approximately how many cigarettes per day: 10 Do you dip or chew tobacco: No If,Former Smoker,when did you quit: FEW YRS AGO 01/23/21 11:14 EKG ROUTINE Comment: Diagnosis: AMS 01/23/21 11:45 OT Eval and Treat (MD Order) ROUTINE Comment: Consulting Provider: Physician Instructions: Reason For Exam: Diagnosis: AMS PT Eval & Treat ( Order) ONCE Reason for Eval:: cva, right upper ext weakness, falls Diagnosis: AMS Discharge Exam General Appearance: no apparent distress, alert Neurologic Exam: motor deficits Respiratory Exam: normal breath sounds, lungs clear, No respiratory distress Cardiovascular Exam: regular rate/rhythm, normal heart sounds Gastrointestinal/Abdomen Exam: soft, No tenderness, No mass Skin Exam: normal color, warm, dry Final Diagnosis/Problem List - Final Discharge Diagnosis/Problem (1) Atrial fibrillation, new onset Current Visit: Yes Status: Acute Code(s): I48.91 - UNSPECIFIED ATRIAL FIBRILLATION (2) Weakness of right upper extremity Current Visit: No Status: Acute Code(s): M62.81 - MUSCLE WEAKNESS (GENERALIZED) (3) Alcohol abuse Current Visit: No Status: Chronic Assessment & Plan: concern with living/social situation. APS alerted by discharge planning. Code(s): F10.10 - ALCOHOL ABUSE, UNCOMPLICATED (4) History of CVA (cerebrovascular accident) Current Visit: No Status: Chronic Code(s): Z86.73 - PRSNL HX OF TIA (TIA), AND CEREB INFRC W/O RESID DEFICITS - Discharge Disposition: Home, Self-Care Condition: Stable Prescriptions: New Aspirin EC 81 mg [Ecotrin 81 mg] 81 mg PO DAILY #30 tablet Apixaban [Eliquis] 5 mg PO BID #60 tablet Metoprolol Succinate 50 mg [Toprol Xl 50 MG] 50 mg PO DAILY #30 tabl et.sa Continue Tamsulosin HCl 0.4 mg [Flomax 0.4 MG] 0.4 mg PO DAILY Lisinopril 5 mg [Zestril 5 MG] 5 mg PO DAILY Atorvastatin Calcium [Lipitor] 80 mg PO DAILY Baclofen 10 mg [Lioresal 10 mg] 10 mg PO TID PANTOPRAZOLE 40 mg Tablet [Protonix 40MG Tablet] 40 mg PO QAM #30 tab Sertraline HCl 50 mg [Zoloft 50 mg Tablet] 150 mg PO DAILY #90 tab Ondansetron ODT 4 MG [Zofran Odt 4 mg] 4 mg PO Q6H PRN PRN #10 tab.rapdis PRN Reason: Vomiting Discontinued Aspirin EC 325 mg [Ecotrin 325 MG] 325 mg PO DAILY #30 tablet.ec Follow up with: GIANCARLO TIM [Primary Care Provider] - 1 Week
--- NOTE | 2021-01-26 10:32 | ECHO ---
Transthoracic echocardiographic examination and color Doppler was done on 01/25/2021. INDICATION: History of hypertension, stroke and atrial fibrillation. IMPRESSION: 1) NO REGIONAL WALL MOTION ABNORMALITY. ESTIMATED GLOBAL LEFT VENTRICULAR EJECTION FRACTION OF AROUND 60%. 2) MILD AORTIC REGURGITATION. 3) TRACE TRICUSPID REGURGITATION. 4) LEFT VENTRICULAR HYPERTROPHY. 5) LEFT ATRIAL ENLARGEMENT. 6) MILDLY DILATED RIGHT SIDED CHAMBERS. 7) MILDLY DILATED AORTIC ROOT. The left ventricle is visualized and demonstrated adequate motion of all the segments. Estimated global left ventricular ejection fraction around 60%. There is concentric left ventricular hypertrophy. The mitral valve is seen and this opens adequately. There is no significant mitral regurgitation. Left atrium is mildly enlarged. The aortic valve opens adequately. There is mild aortic regurgitation. The right side chambers are mildly dilated. There is trace tricuspid regurgitation. The aortic root appears to be mildly dilated.
== END 2021-01-25 11:01 | disposition home or self-care (01) ==
LOC: ED 11:50 → MED SURG 20:23
PROVIDERS: ADMIT Family Medicine; ATTEND Family Medicine
DX: I48.91 Unspecified atrial fibrillation (principal); R41.0 Disorientation, unspecified; M25.521 Pain in right elbow; M79.631 Pain in right forearm; I69.351 Hemiplegia and hemiparesis following cerebral infarction affecting right dominant side; I10 Essential (primary) hypertension; E78.5 Hyperlipidemia, unspecified; Z79.899 Other long term (current) drug therapy; F10.10 Alcohol abuse, uncomplicated; Z20.828 Contact with and (suspected) exposure to other viral communicable diseases
CPT/HCPCS: 36000; 36415; 70450; 71045; 73080; 73110; 80048; 80053; 80307; 81001; 83605; 83690; 83735; 84443; 84484; 85025; 93005; 93268; 93306; 96360; 96374; 96375; 99284; 99291; G0378; G0480; U0003; J1650; J2060; J2405; A9270-GY

== ENCOUNTER 2021-03-01 15:28 | Emergency (ER) | payer MEDICARE ==
[2021-03-01] MEDS ORDERED: Sodium Chloride 0.9% 1000 ML 1,000 ML IV STA (15:32)
[2021-03-01] MEDS ORDERED: Sodium Chloride 0.9% 1000 ML 1,000 ML ONE (15:56)
[2021-03-01 16:05] LABS: Absolute Neutrophil Ct (ANC) 5.05 (1.4-6.9); BASOPHIL % 0.3 % (0.0-0.4); Basophil (Absolute #) 0.02 (0-0.4); Eosinophil % 0.5 % (0.00-5.0); Eosinophil (Absolute #) 0.04 (0-0.5); Hematocrit 54.7 % (42-50); Hemoglobin 18.5 gm/dl (12.5-18.0); Lymphocyte (Absolute #) 2.02 (1.0-4.6); Mean Cell Volume 90.3 fl (78-100); Mean Corpuscular Hemoglobin 30.5 pg (26-32); Mean Corpuscular Hgb Concent. 33.8 g/dl (32-36); Mean Platelet Volume 10.9 fl (7.5-11.0); Monocyte (Absolute #) 0.65 (0.0-1.3); Monocytes % 8.4 % (0.0-12.0); Neutrophil % 64.8 % (36.0-66.0); Platelet Count 132 K/mm3 (150-450); Red Blood Count 6.06 M/mm3 (4.1-5.6); Red Cell Distribution Width 15.5 % (11.5-14.0); White Blood Count 7.8 K/mm3 (4.0-10.5)
[2021-03-01 16:25] LABS: ALBUMIN 3.7 g/dL (3.5-5.0); ALKALINE PHOSPHATASE 132 U/L (38-126); ANION GAP 13.5 MEQ/L (5-15); BLOOD UREA NITROGEN 8 mg/dL (9-20); CHLORIDE 104 mmol/L (98-107); CK-Creatinine Phosphokinase 48 U/L (55-170); Calcium 9.5 mg/dL (8.4-10.2); Carbon Dioxide 20 mmol/L (22-30); Creatinine 1 0.96 mg/dL (0.66-1.25); EST GLOMERULAR FILTRATION RATE > 60.0 ML/MIN; Glucose 142 mg/dL (74-106); Potassium 3.8 mmol/L (3.5-5.1); SGOT/AST 54 U/L (17-59); SGPT/ALT 34 U/L (0-50); SODIUM 134 mmol/L (137-145)
--- NOTE | 2021-03-01 16:44 | ERPHSYRPT ---
- History of Present Illness Time Seen by Provider: 03/01/21 15:38 Source: patient Exam Limitations: no limitations Patient Subjective Stated Complaint: pt here for possible blood in urine, he states he is only voiding small amounts, pt is a poor historian due to a stroke, he states he lives on hes own Triage Nursing Assessment: pt alert, resp easy, skin w/p/d, face mask in place, abd soft, pt attempted x2 to void without success. pt is flaccid to right side from a stroke Physician History: Patient is a 60-year-old male presents for emergency department the EMS for evaluation of discolored urine. Patient suspects it may be blood. Patient states he been voiding only small amounts. It is unclear exactly how much he has been voiding. Patient is a poor historian. Per report patient has a history of a stroke. The stroke has affected his left side. He has residual left-sided paralysis. Patient denies active pain. No chest pain or shortness of breath. No abdominal pain. No nausea or vomiting. No diarrhea. Symptoms are mild to moderate in intensity. No specific worsening improving factors. Patient voices no other complaints or concerns at this time. Timing/Duration: today Severity: mild Modifying Factors: Improves With: nothing Associated Symptoms: denies symptoms, No nausea, No vomiting, No abdominal pain, No shortness of breath, No diaphoresis, No cough, No chills, No chest pain, No fever, No headaches, No loss of appetite, No syncope, No seizure Allergies/Adverse Reactions: No Known Drug Allergies Allergy (Verified 01/22/21 12:17) Home Medications: Atorvastatin Calcium [Lipitor] 80 mg PO DAILY 08/31/17 [History] Lisinopril 5 mg [Zestril 5 MG] 5 mg PO DAILY 08/31/17 [History] Tamsulosin HCl 0.4 mg [Flomax 0.4 MG] 0.4 mg PO DAILY 08/31/17 [History] Baclofen 10 mg [Lioresal 10 mg] 10 mg PO TID 03/30/19 [History] Hx Tetanus, Diphtheria Vaccination/Date Given: Yes (2017) Hx Influenza Vaccination/Date Given: No Hx Pneumococcal Vaccination/Date Given: No Immunizations Up to Date: Yes Travel Risk - International Travel Have you traveled outside of the country in past 3 weeks: No - Coronavirus Screening Are you exhibiting any of the following symptoms?: No Close contact with a COVID-19 positive Pt in past 14-21 Days: No - Vaccine Status Have you recieved a Covid-19 vaccination: No - Review of Systems Constitutional: No Symptoms, No Fever, No Chills Eyes: No Symptoms Ears, Nose, & Throat: No Symptoms Respiratory: No Symptoms, No Cough, No Dyspnea Cardiac: No Symptoms, No Chest Pain, No Edema, No Syncope Abdominal/Gastrointestinal: No Symptoms, No Abdominal Pain, No Nausea, No Vomiting, No Diarrhea Genitourinary Symptoms: No Symptoms, No Dysuria Musculoskeletal: No Symptoms, No Back Pain, No Neck Pain Skin: No Symptoms, No Rash Neurological: No Symptoms, No Dizziness, No Focal Weakness, No Sensory Changes Psychological: No Symptoms Endocrine: No Symptoms Hematologic/Lymphatic: No Symptoms Immunological/Allergic: No Symptoms All Other Systems: Reviewed and Negative - Past Medical History Pertinent Past Medical History: Yes Neurological History: Stroke ENT History: No Pertinent History Cardiac History: No Pertinent History Respiratory History: No Pertinent History Endocrine Medical History: No Pertinent History Musculoskeletal History: No Pertinent History GI Medical History: No Pertinent History History: No Pertinent History Psycho-Social History: No Pertinent History Male Reproductive Disorders: Prostate Problems Other Medical History: REPORTS RHUEMATIC FEVER AND HEPITITIS WHEN HE WAS YOUNG BUT OTHERISE NONSIGNIFICANT. - Past Surgical History Past Surgical History: Yes Neuro Surgical History: No Pertinent History Cardiac: No Pertinent History Respiratory: No Pertinent History Gastrointestinal: No Pertinent History Genitourinary: No Pertinent History Musculoskeletal: Orthopedic Surgery Male Surgical History: No Pertinent History Other Surgical History: Colonoscopy - Social History Smoking Status: Current every day smoker How long have you smoked: mostoflife Exposure to second hand smoke: Yes Drug Use: none Patient Lives Alone: Yes - Nursing Vital Signs Nursing Vital Signs: Initial Vital Signs Respiratory Rate 16 03/01/21 15:34 Blood Pressure 144/93 03/01/21 15:34 O2 Sat by Pulse Oximetry 95 03/01/21 15:34 Pain Scale Pain Intensity 0 - Physical Exam General Appearance: no apparent distress, alert Eye Exam: PERRL/EOMI, eyes nml inspection Ears, Nose, Throat Exam: normal ENT inspection, TMs normal, pharynx normal, moist mucous membranes Neck Exam: normal inspection, non-tender, supple, full range of motion Respiratory Exam: normal breath sounds, lungs clear, No respiratory distress Cardiovascular Exam: regular rate/rhythm, normal heart sounds, normal peripheral pulses Gastrointestinal/Abdomen Exam: soft, normal bowel sounds, No tenderness, No mass Back Exam: normal inspection, normal range of motion, No CVA tenderness, No vertebral tenderness Extremity Exam: normal inspection, normal range of motion, pelvis stable Neurologic Exam: alert, oriented x 3, cooperative, normal mood/affect, nml cerebellar function, nml station & gait, sensation nml, No motor deficits Skin Exam: normal color, warm, dry, No rash Lymphatic Exam: No adenopathy SpO2 Interpretation: normal SpO2: 95 O2 Delivery: Room Air - Course Nursing assessment & vital signs reviewed: Yes - CT Exams Abdomen/Pelvis CT Interpretation: Tele-radiologist Report (Distal left ureteral stone measuring 7.4 mm in diameter left-sided hydronephrosis hydroureter. Nephrolithiasis. Stable 3.9 cm diameter AAA hepatic steatosis small calcification of the distal pancreatic tail atherosclerotic vascular calcification inguinal hernias) Ordered Tests: Active Orders 24 hr Category Date Time Status IV Insertion STAT Care 03/01/21 15:32 Active ABDOMEN AND PELVIS W CONTRAST [CT] Stat Exams 03/01/21 15:32 Completed CBC W DIFF Stat Lab 03/01/21 15:53 Completed CK (IN-HOUSE) [CK-Creatinine Phosphokinase] Stat Lab 03/01/21 15:53 Completed CMP Stat Lab 03/01/21 15:53 Completed UA W/RFX UR CULTURE Stat Lab 03/01/21 18:21 Ordered Medication Summary Discontinued Medications Generic Name Dose Route Start Last Admin Trade Name Katerine PRN Reason Stop Dose Admin Sodium Chloride 1,000 mls @ 999 mls/hr 03/01/21 15:32 03/01/21 18:30 Sodium Chloride 0.9% 1000 Ml IV 03/01/21 16:32 Infused .Q1H1M STA Infusion Sodium Chloride Confirm 03/01/21 15:56 Sodium Chloride 0.9% 1000 Ml Administered 03/01/21 15:57 Dose 1,000 mls @ ud .ROUTE .K-MED ONE Lab/Rad Data: Laboratory Result Diagrams 03/01/21 15:53 03/01/21 15:53 Laboratory Results 03/01/21 03/01/21 Range/Units 15:53 15:53 WBC 7.8 (4.0-10.5) K/mm3 RBC 6.06 H (4.1-5.6) M/mm3 Hgb 18.5 H (12.5-18.0) gm/dl Hct 54.7 H (42-50) % MCV 90.3 (78-100) fl MCH 30.5 (26-32) pg MCHC 33.8 (32-36) g/dl RDW 15.5 H (11.5-14.0) % Plt Count 132 L (150-450) K/mm3 MPV 10.9 (7.5-11.0) fl Gran % 64.8 (36.0-66.0) % Eos # (Auto) 0.04 (0-0.5) Absolute Lymphs (auto) 2.02 (1.0-4.6) Absolute Monos (auto) 0.65 (0.0-1.3) Lymphocytes % 26.0 (24.0-44.0) % Monocytes % 8.4 (0.0-12.0) % Eosinophils % 0.5 (0.00-5.0) % Basophils % 0.3 (0.0-0.4) % Absolute Granulocytes 5.05 (1.4-6.9) Basophils # 0.02 (0-0.4) Sodium 134 L (137-145) mmol/L Potassium 3.8 (3.5-5.1) mmol/L Chloride 104 (98-107) mmol/L Carbon Dioxide 20 L (22-30) mmol/L Anion Gap 13.5 (5-15) MEQ/L BUN 8 L (9-20) mg/dL Creatinine 0.96 (0.66-1.25) mg/dL Estimated GFR > 60.0 ML/MIN Glucose 142 H (74-106) mg/dL Calcium 9.5 (8.4-10.2) mg/dL Total Bilirubin 0.80 (0.2-1.3) mg/dL AST 54 (17-59) U/L ALT 34 (0-50) U/L Alkaline Phosphatase 132 H (38-126) U/L Creatine Kinase 48 L (55-170) U/L Serum Total Protein 7.0 (6.3-8.2) g/dL Albumin 3.7 (3.5-5.0) g/dL - Progress Progress: improved Progress Note: Patient will be transferred to [facility]. RN called general surgery. I did not receive a return call. We called [facility]. Case discussed with Dr. Adam baker accepts consult Case discussed with vascular surgery regarding the clot. consult. Dr. Marquis is a hospitalist accepts transfer. Care discussed with patient who accepts transfer to [facility]. Patient voices no other complaints concerns at this time. 03/01/21 21:38 Counseled pt/family regarding: lab results, diagnosis, rad results - Departure Departure Disposition: Transfer Clinical Impression: Hepatic steatosis, Nephrolithiasis, Hydroureter, Hydronephrosis, Ureterolithiasis, AAA (abdominal aortic aneurysm), AORTIC CLOT, Vascular calcification, Arthritis of spine Condition: Stable Critical Care Time: No Referrals: GIANCARLO TIM [Primary Care Provider] -
--- NOTE | 2021-03-01 17:46 | XRAY ---
Exam: CT of the abdomen and pelvis with IV contrast from 03/10/2021. CTDI: 20.36 mGy Comparison: CT of the abdomen and pelvis without IV contrast from 10/22/2020. Indication: 60-year-old male with pelvic pain; hematuria. Consider renal mass. Technique: Post-IV contrast axial images were obtained through the abdomen and pelvis during automated injection of 80 cc of Isovue-370 IV contrast material. Reconstructed coronal and sagittal images were created and reviewed. The patient was unable to raise his arms above his abdominal level for this exam. Findings: The lung bases reveals some minimal posterior compression atelectatic change at the right lung base. I again note at least several old healed rib fracture deformities posterior laterally within the right lower rib cage. The liver is of normal size. Moderate diffuse hepatic decreased attenuation is seen consistent with hepatic steatosis. This is unchanged. A discrete liver mass or intrahepatic biliary duct distention is not seen. The gallbladder is distended and reveals no dense calcifications within it. The spleen is of normal size and reveals a calcified splenic granuloma. The pancreas is remarkable for several small calcifications within the distal pancreatic tail representing no change from 10/22/2020. Correlate clinically regarding mild chronic calcific pancreatitis. No pancreatic mass or pancreatic duct distention is seen. No peripancreatic inflammatory changes are seen. The adrenal glands appear of normal size and configuration. The kidneys appear of unremarkable size. I again note some nonobstructing renal calculi within the lower pole of the left kidney, the largest measuring 6.9 mm in diameter. Several tiny micro-calculi are seen within the upper pole of the left kidney on the coronal images. There appears to be mild left-sided hydronephrosis and hydroureter down to the level of an obstructing stone within the distal left ureter on axial images #80 through #82. This distal left ureteral stone measures a maximum of 7.4 mm in diameter. The right ureter appears unremarkable. There is delay of excretion of contrast from the left kidney as compared to the right kidney. This is due to the obstructive uropathy on the left. No renal mass is seen. I again see a distal abdominal aortic aneurysm with significant peripheral clot within it. The aneurysm measures 3.9 cm in maximum width on coronal image #76 which is similar to coronal image #84 from 10/22/2020. On sagittal image #136, the aneurysm measures about 3.8 cm in AP dimension which is similar to sagittal image #130 from 10/22/2020. I see no evidence of periaortic active leak. The inferior mesenteric artery drapes along the anterior surface of the aneurysm on the sagittal images. Moderate atherosclerotic vascular calcification is seen within the proximal renal arteries, distal abdominal aorta, and iliac arteries. No abnormal retroperitoneal lymphadenopathy is seen. No free air or ventral abdominal wall hernia is seen. The appendix appears unremarkable within the right lower quadrant. There is no evidence of abnormal bowel distention or obstruction. Moderate intraperitoneal fat is seen. The urinary bladder is only minimally distended which probably accounts for apparent urinary bladder wall thickening. No stone is seen within the urinary bladder. The seminal vesicles and prostate gland appear unremarkable. No abnormal pelvic mass or lymphadenopathy is seen. No free intraperitoneal fluid is seen. Vascular calcification is seen within both common femoral arteries. I again note small bilateral fat-containing inguinal hernias, a bit larger on the right than left. Some postinflammatory lymph nodes are seen within each groin. The skeleton reveals no acute fracture or aggressive bone lesion. There is mild to moderate degenerative disc disease at L4-L5 and marked degenerative disc disease at L5-S1. These findings are unchanged. Impression: 1. There is acute obstructive uropathy on the left. A distal left ureteral 7.4 mm in diameter obstructing stone is seen causing left-sided hydronephrosis, hydroureter, and delay in excretion from the left kidney of the IV contrast. 2. I again note other calculi within the left kidney representing no significant interval change. 3. Stable 3.9 cm in diameter distal abdominal aortic aneurysm, moderate hepatic steatosis, lower right-sided rib fracture deformities, small calcifications within the distal pancreatic tail (stable), moderate atherosclerotic vascular calcification, and small bilateral fat-containing inguinal hernias, right slightly larger than left.
[2021-03-01 20:29] VITALS: BP 138/92; PULSE 71
[2021-03-01 21:40] VITALS: O2SAT 95
== END 2021-03-01 22:00 | disposition short-term general hospital (02) ==
LOC: ED 15:28
DX: N13.2 Hydronephrosis with renal and ureteral calculous obstruction (principal); K76.0 Fatty (change of) liver, not elsewhere classified; N13.4 Hydroureter; I71.4 Abdominal aortic aneurysm, without rupture; M47.819 Spondylosis without myelopathy or radiculopathy, site unspecified; Z79.899 Other long term (current) drug therapy
CPT/HCPCS: 36000; 36415; 74177; 80053; 82550; 85025; 99285

== ENCOUNTER 2021-03-17 00:24 | Observation (INO) | payer MEDICARE ==
[2021-03-17 01:36] LABS: Absolute Neutrophil Ct (ANC) 5.58 (1.4-6.9); BASOPHIL % 0.5 % (0.0-0.4); Basophil (Absolute #) 0.05 (0-0.4); Eosinophil % 0.8 % (0.00-5.0); Eosinophil (Absolute #) 0.08 (0-0.5); Hematocrit 56.8 % (42-50); Hemoglobin 19.6 gm/dl (12.5-18.0); Lymphocyte (Absolute #) 3.23 (1.0-4.6); Lymphocytes % 33.3 % (24.0-44.0); Mean Cell Volume 88.1 fl (78-100); Mean Corpuscular Hemoglobin 30.4 pg (26-32); Mean Corpuscular Hgb Concent. 34.5 g/dl (32-36); Monocyte (Absolute #) 0.77 (0.0-1.3); Monocytes % 7.9 % (0.0-12.0); Neutrophil % 57.5 % (36.0-66.0); Platelet Count 222 K/mm3 (150-450); Red Blood Count 6.45 M/mm3 (4.1-5.6); Red Cell Distribution Width 15.2 % (11.5-14.0); White Blood Count 9.7 K/mm3 (4.0-10.5)
[2021-03-17 01:44] LABS: ALBUMIN 4.5 g/dL (3.5-5.0); ALKALINE PHOSPHATASE 124 U/L (38-126); BLOOD UREA NITROGEN 4 mg/dL (9-20); CHLORIDE 95 mmol/L (98-107); Calcium 9.8 mg/dL (8.4-10.2); Carbon Dioxide 21 mmol/L (22-30); Creatinine 1 0.84 mg/dL (0.66-1.25); EST GLOMERULAR FILTRATION RATE > 60.0 ML/MIN; Glucose 103 mg/dL (74-106); LIPASE 193 U/L (23-300); Potassium 4.3 mmol/L (3.5-5.1); SGOT/AST 67 U/L (17-59); SGPT/ALT 46 U/L (0-50); SODIUM 133 mmol/L (137-145); Total Protein 8.1 g/dL (6.3-8.2)
--- NOTE | 2021-03-17 01:53 | ERPHSYRPT ---
- History of Present Illness Time Seen by Provider: 03/17/21 00:34 Historian: patient Exam Limitations: no limitations Patient Subjective Stated Complaint: Vomiting upon arrival to facility. Patient c/o N/V X 2 weeks and states that he has been drinking today due to left groin pain. Triage Nursing Assessment: Patient is alert to name and place but not to time; states he had his gallbladder removed 3 weeks ago but there is no evidence of recent abdominal surgery upon inspection. Patient vomiting; liquid emesis. Patient states he has been drinking today. Right sided weakness noted but is not new for this patient. Physician History: Patient is a 60-year-old male presents to our ED via EMS for evaluation of nausea and vomiting x2 weeks. Patient states he has been experiencing pain to his groin area and has been self treating with alcohol. Patient is currently intoxicated. Patient states he has had surgery in the past. Patient states he had a cholecystectomy 3 weeks ago however there is no physical evidence of this. Patient is mildly nauseous at this time. No trauma no fever. Patient has mild residual right-sided weakness from previous stroke. Symptoms are mild to moderate in intensity. No specific worsening or improving factors. Patient voices no other complaints or concerns at this time. Patient is intoxicated and is difficult to obtain a detailed HPI at this time. Timing/Duration: week(s) Activities at Onset: none (Weeks) Quality: aching Abdominal Pain Onset Location: other (Groin pain.) Pain Radiation: no radiation Severity of Pain-Max: moderate Severity of Pain-Current: mild Modifying Factors: Improves With: nothing Associated Symptoms: vomiting, No chest pain, No fever/chills, No headache, No neck pain, No shortness of breath, No testicular pain Previous symptoms: no prior history Allergies/Adverse Reactions: No Known Drug Allergies Allergy (Verified 03/17/21 00:42) Home Medications: Atorvastatin Calcium [Lipitor] 80 mg PO DAILY 08/31/17 [History] Lisinopril 5 mg [Zestril 5 MG] 5 mg PO DAILY 08/31/17 [History] Tamsulosin HCl 0.4 mg [Flomax 0.4 MG] 0.4 mg PO DAILY 08/31/17 [History] Baclofen 10 mg [Lioresal 10 mg] 10 mg PO TID 03/30/19 [History] Hx Tetanus, Diphtheria Vaccination/Date Given: Yes (2017) Hx Influenza Vaccination/Date Given: No Hx Pneumococcal Vaccination/Date Given: No Travel Risk - International Travel Have you traveled outside of the country in past 3 weeks: No - Coronavirus Screening Are you exhibiting any of the following symptoms?: Yes Symptoms: Vomiting/Diarrhea Close contact with a COVID-19 positive Pt in past 14-21 Days: No - Vaccine Status Have you recieved a Covid-19 vaccination: No - Review of Systems All Other Systems: Unable due to condition - Past Medical History Pertinent Past Medical History: Yes Neurological History: Stroke ENT History: No Pertinent History Cardiac History: High Cholesterol, Hypertension Respiratory History: No Pertinent History Endocrine Medical History: No Pertinent History Musculoskeletal History: No Pertinent History GI Medical History: Gallbladder Disease History: No Pertinent History Psycho-Social History: No Pertinent History Male Reproductive Disorders: Prostate Problems Other Medical History: REPORTS RHUEMATIC FEVER AND HEPITITIS WHEN HE WAS YOUNG BUT OTHERISE NONSIGNIFICANT. Kidney stones. - Past Surgical History Past Surgical History: Yes Neuro Surgical History: No Pertinent History Cardiac: No Pertinent History Respiratory: No Pertinent History Gastrointestinal: No Pertinent History Genitourinary: No Pertinent History Musculoskeletal: Orthopedic Surgery Male Surgical History: No Pertinent History Other Surgical History: Colonoscopy - Social History Smoking Status: Current every day smoker How long have you smoked: many years Exposure to second hand smoke: Yes Drug Use: none Patient Lives Alone: Yes - Nursing Vital Signs Nursing Vital Signs: Initial Vital Signs Pulse Rate 122 H 03/17/21 00:31 Respiratory Rate 24 03/17/21 00:31 Blood Pressure 167/111 03/17/21 00:31 O2 Sat by Pulse Oximetry 96 03/17/21 00:31 Pain Scale Pain Intensity 5 - Physical Exam General Appearance: no apparent distress, alert Eye Exam: PERRL/EOMI, eyes nml inspection Ears, Nose, Throat Exam: normal ENT inspection, pharynx normal, moist mucous membranes Neck Exam: normal inspection, non-tender, supple, full range of motion Respiratory Exam: normal breath sounds, lungs clear, No respiratory distress Cardiovascular Exam: regular rate/rhythm, normal heart sounds Gastrointestinal/Abdomen Exam: soft, tenderness, other (Tenderness to palpation at right groin area. No testicular pain. Patient's underwear and shorts are soaked with urine. Patient states he urinates on himself because he cannot get out of bed to walk to the bathroom.), No mass Back Exam: normal inspection, normal range of motion, No CVA tenderness, No ve rtebral tenderness Extremity Exam: normal inspection, normal range of motion, pelvis stable Neurologic Exam: alert, oriented x 3, cooperative, normal mood/affect, nml cerebellar function, sensation nml, No motor deficits Skin Exam: normal color, warm, dry Lymphatic Exam: No adenopathy SpO2 Interpretation: normal SpO2: 98 O2 Delivery: Room Air - Course Nursing assessment & vital signs reviewed: Yes - CT Exams Abdomen/Pelvis CT Interpretation: Tele-radiologist Report (Majority of the colon is collapsed which is a nonspecific appearance that can correlate with colitis in the appropriate clinical setting. Unruptured fusiform 4 cm infrarenal abdominal aortic aneurysm with moderate infrarenal plaque and thrombus. 9 obstructing left renal calculus. Hepatic steatosi) Ordered Tests: Active Orders 24 hr Category Date Time Status ABDOMEN AND PELVIS W CONTRAST [CT] Stat Exams 03/17/21 01:28 Taken CBC W DIFF Stat Lab 03/17/21 01:33 Completed CMP Stat Lab 03/17/21 01:33 Completed ETHYL ALCOHOL Stat Lab 03/17/21 01:33 Completed LIPASE Stat Lab 03/17/21 01:33 Completed TROPONIN Q3H Lab 03/17/21 01:34 Completed TROPONIN Q3H Lab 03/17/21 04:48 Completed TROPONIN Q3H Lab 03/17/21 07:30 Ordered TROPONIN Q3H Lab 03/17/21 10:30 Ordered TROPONIN Q3H Lab 03/17/21 13:30 Ordered UA W/RFX UR CULTURE Stat Lab 03/17/21 01:26 Ordered Urine Triage Profile Stat Lab 03/17/21 01:26 Ordered Transfer Order Routine Transfer 03/17/21 Ordered Medication Summary Discontinued Medications Generic Name Dose Route Start Last Admin Trade Name Freq PRN Reason Stop Dose Admin Piperacillin Sod/Tazobactam 100 mls @ 200 mls/hr 03/17/21 05:47 03/17/21 06:00 Sod 3.375 gm/ Sodium Chloride IV 03/17/21 06:16 200 mls/hr STAT ONE Administration Sodium Chloride Confirm 03/17/21 06:00 Sodium Chloride 100ml Mini-Bag Plus Administered 03/17/21 06:01 Dose 100 mls @ ud IV .STK-MED ONE Piperacillin Sod/Tazobactam Sod Confirm 03/17/21 05:59 Zosyn 3.375 Gm Vial Administered 03/17/21 06:00 Dose 3.375 gm IV .STK-MED ONE Lab/Rad Data: Laboratory Result Diagrams 03/17/21 01:33 03/17/21 01:33 Laboratory Results 03/17/21 03/17/21 03/17/21 Range/Units 05:46 04:48 01:34 WBC (4.0-10.5) K/mm3 RBC (4.1-5.6) M/mm3 Hgb (12.5-18.0) gm/dl Hct (42-50) % MCV (78-100) fl MCH (26-32) pg MCHC (32-36) g/dl RDW (11.5-14.0) % Plt Count (150-450) K/mm3 MPV (7.5-11.0) fl Gran % (36.0-66.0) % Eos # (Auto) (0-0.5) Absolute Lymphs (auto) (1.0-4.6) Absolute Monos (auto) (0.0-1.3) Lymphocytes % (24.0-44.0) % Monocytes % (0.0-12.0) % Eosinophils % (0.00-5.0) % Basophils % (0.0-0.4) % Absolute Granulocytes (1.4-6.9) Basophils # (0-0.4) Sodium (137-145) mmol/L Potassium (3.5-5.1) mmol/L Chloride (98-107) mmol/L Carbon Dioxide (22-30) mmol/L Anion Gap (5-15) MEQ/L BUN (9-20) mg/dL Creatinine (0.66-1.25) mg/dL Estimated GFR ML/MIN Glucose (74-106) mg/dL Calcium (8.4-10.2) mg/dL Total Bilirubin (0.2-1.3) mg/dL AST (17-59) U/L ALT (0-50) U/L Alkaline Phosphatase (38-126) U/L Troponin I < 0.012 < 0.012 (0.000-0.034) ng/mL Serum Total Protein (6.3-8.2) g/dL Albumin (3.5-5.0) g/dL Lipase (23-300) U/L Ethyl Alcohol (0-10) mg/dL SARS-CoV-2 (PCR) NEGATIVE (NEGATIVE) 03/17/21 03/17/21 03/17/21 Range/Units 01:33 01:33 01:33 WBC 9.7 (4.0-10.5) K/mm3 RBC 6.45 H* (4.1-5.6) M/mm3 Hgb 19.6 H (12.5-18.0) gm/dl Hct 56.8 H (42-50) % MCV 88.1 (78-100) fl MCH 30.4 (26-32) pg MCHC 34.5 (32-36) g/dl RDW 15.2 H (11.5-14.0) % Plt Count 222 (150-450) K/mm3 MPV 11.0 (7.5-11.0) fl Gran % 57.5 (36.0-66.0) % Eos # (Auto) 0.08 (0-0.5) Absolute Lymphs (auto) 3.23 (1.0-4.6) Absolute Monos (auto) 0.77 (0.0-1.3) Lymphocytes % 33.3 (24.0-44.0) % Monocytes % 7.9 (0.0-12.0) % Eosinophils % 0.8 (0.00-5.0) % Basophils % 0.5 (0.0-0.4) % Absolute Granulocytes 5.58 (1.4-6.9) Basophils # 0.05 (0-0.4) Sodium 133 L (137-145) mmol/L Potassium 4.3 (3.5-5.1) mmol/L Chloride 95 L (98-107) mmol/L Carbon Dioxide 21 L (22-30) mmol/L Anion Gap 21.0 H (5-15) MEQ/L BUN 4 L (9-20) mg/dL Creatinine 0.84 (0.66-1.25) mg/dL Estimated GFR > 60.0 ML/MIN Glucose 103 (74-106) mg/dL Calcium 9.8 (8.4-10.2) mg/dL Total Bilirubin 0.90 (0.2-1.3) mg/dL AST 67 H (17-59) U/L ALT 46 (0-50) U/L Alkaline Phosphatase 124 (38-126) U/L Troponin I (0.000-0.034) ng/mL Serum Total Protein 8.1 (6.3-8.2) g/dL Albumin 4.5 (3.5-5.0) g/dL Lipase 193 (23-300) U/L Ethyl Alcohol 169 H (0-10) mg/dL SARS-CoV-2 (PCR) (NEGATIVE) - Progress Progress: improved Progress Note: Patient reassessed. He is resting comfortably. Urinalysis not collected as patient is incontinent. CT scan shows a collapsed colon suggestive of a colitis. Patient has been vomiting for approximately 2 weeks. Patient does have history of alcoholism. Upon presentation patient smells of alcohol and was positive for alcohol in his toxicology screen. Patient lives independently at this time. We will admit at this time for abdominal pain suspected colitis rehydration. Case discussed with Dr. Fernandez who accepts admission to observation. Plan of care discussed with patient. He agrees to admission at [facility] for further evaluation and treatment. Patient is Covid negative. 03/17/21 07:14 Counseled pt/family regarding: lab results, diagnosis, rad results - Departure Departure Disposition: Home Clinical Impression: Hepatic steatosis, pancreatic tail calcification, Diverticulosis, Atherosc lerotic cardiovascular disease, AAA (abdominal aortic aneurysm), Nephrolithiasis, Colitis, Urinary incontinence, Alcoholism, High anion gap metabolic acidosis Condition: Stable Critical Care Time: No Referrals: GIANCARLO TIM [Primary Care Provider] -
[2021-03-17] MEDS ORDERED: Zosyn 3.375 GM Vial 3.375 GM in Sodium Chloride 100ML MINI-BAG PLUS 100 ML IV ONE (05:47)
[2021-03-17] MEDS ORDERED: Zosyn 3.375 GM Vial IV ONE (05:59)
[2021-03-17] MEDS ORDERED: Sodium Chloride 100ML MINI-BAG PLUS 100 ML IV ONE (06:00)
[2021-03-17] MEDS ORDERED: Sodium Chloride 0.9% 1000 ML 1,000 ML ONE (07:44)
[2021-03-17] MEDS ORDERED: Sodium Chloride 0.9% 1000 ML 1,000 ML IV STA (07:45)
[2021-03-17] MEDS ORDERED: Sodium Chloride 0.9% 500 ML 500 ML IV ONE ×2 (07:46→09:54)
--- NOTE | 2021-03-17 09:07 | XRAY ---
Indication: Abdomen pain. Multiple contiguous axial images obtained through the abdomen and pelvis using 80 cc Isovue 370 contrast. Comparison: March 01, 2021 Lung bases again demonstrates minimal dependent atelectasis without infiltrate or effusion. Heart not enlarged. Images of the abdomen again degraded by beam artifact from patient's arm/hand more than before. Noncontrasted stomach and bowel loops remain nonobstructed. No free fluid/air. New left double-J ureteral stent catheter in situ. Stable left renal micro-calculus, fatty liver, and scattered arteriosclerotic disease with 3.9 cm distal AAA. Remaining liver, gallbladder, pancreas, spleen, adrenal glands, kidneys, ureters, and bladder are unremarkable. No pathologic retroperitoneal lymphadenopathy. Impression: 1. Worsening beam artifact from patient's arm/hand. 2. New left double-J ureteral stent catheter without complications. 3. Stable left renal micro-calculus, fatty liver, and distal AAA. Comment: Preliminary interpretation made by C. No critical discrepancy.
[2021-03-17] MEDS ORDERED: Zofran 4 MG/2 ML VIAL IV PRN (11:11)
[2021-03-17] MEDS ORDERED: Sodium Chloride 0.9% 1000 ML 1,000 ML IV SCH (11:11)
[2021-03-17] MEDS ORDERED: MORPHINE SULFATE 2 MG INJ IV PRN (11:11)
[2021-03-17] MEDS ORDERED: Ativan 2 MG/1 ML VIAL IV PRN (13:30)
[2021-03-17] MEDS ORDERED: Phenergan 25 MG INJ IV PRN (14:00)
[2021-03-17] MEDS ORDERED: THERAGRAN MULTIVITAMIN PO SCH (14:00)
[2021-03-17] MEDS ORDERED: FOLATE 1 MG PO SCH (14:00)
[2021-03-17] MEDS ORDERED: VITAMIN B-1 100 MG PO SCH (14:00)
[2021-03-17] MEDS ORDERED: Vitamins For Infusion 10 ML INJECTION*** 10 ML, FOLNATE 5 MG/ML 10 ML VIAL** 1 MG, THIA... IV PRN ×4 (14:10)
[2021-03-17] MEDS ORDERED: LIORESAL 10 MG PO PRN (14:14)
[2021-03-17] MEDS ORDERED: Phenergan 25 MG INJ IM PRN (14:15)
[2021-03-17] MEDS ORDERED: Cymbalta 30 MG Capsule PO SCH (14:30)
[2021-03-17] MEDS ORDERED: ECOTRIN 81 MG PO SCH (14:30)
[2021-03-17] MEDS ORDERED: ZOCOR 20MG PO SCH (14:30)
[2021-03-17] MEDS ORDERED: ELIQUIS 2.5 MG TABLET PO SCH (14:30)
[2021-03-17] MEDS ORDERED: Flomax 0.4 MG PO SCH (14:30)
[2021-03-17] MEDS ORDERED: Vitamin B-12 500 MCG PO SCH (14:30)
[2021-03-17] MEDS ORDERED: Toprol Xl 50 MG PO SCH (14:30)
[2021-03-17] MEDS ORDERED: Protonix 40MG Tablet PO SCH (14:30)
[2021-03-17] MEDS ORDERED: Zestril 5 MG PO SCH (14:30)
[2021-03-17 16:09] VITALS: O2SAT 95
--- NOTE | 2021-03-17 17:39 | PCM.SSS ---
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 he has had nausea and vomiting as well as diarrhea and pain in the hip, he was found to have colitis in ER, was attempted to transfer to [facility] but admitted here as bed not available. - Review of Systems Constitutional: No Fever, No Chills Respiratory: No Cough, No Short Of Breath Cardiac: No Chest Pain, No Edema, No Syncope Abdominal/Gastrointestinal: Abdominal Pain, Nausea, Vomiting, Diarrhea Genitourinary Symptoms: No Dysuria Skin: No Rash All Other Systems: Reviewed and Negative Medications & Allergies Home Medications: Home Medication List Atorvastatin Calcium [Lipitor] 80 mg PO DAILY 08/31/17 [History Confirmed 03/17/21] Lisinopril 5 mg [Zestril 5 MG] 5 mg PO DAILY 08/31/17 [History Confirmed 03/17/21] Tamsulosin HCl 0.4 mg [Flomax 0.4 MG] 0.4 mg PO DAILY 08/31/17 [History Confirmed 03/17/21] Baclofen 10 mg [Lioresal 10 mg] 10 mg PO TIDPRN PRN 03/30/19 [History Confirmed 03/17/21] PANTOPRAZOLE 40 mg Tablet [Protonix 40MG Tablet] 40 mg PO QAM #30 tab 04/02/19 [Rx Confirmed 03/17/21] Apixaban [Eliquis] 5 mg PO BID #60 tablet 01/25/21 [Rx Confirmed 03/17/21] Aspirin EC 81 mg [Ecotrin 81 mg] 81 mg PO DAILY #30 tablet 01/25/21 [Rx Confirmed 03/17/21] Metoprolol Succinate 50 mg [Toprol Xl 50 MG] 50 mg PO DAILY #30 tablet.sa 01/25/21 [Rx Confirmed 03/17/21] Cyanocobalamin (Vitamin B-12) [Vitamin B-12] 1,000 mcg PO DAILY 03/17/21 [History Confirmed 03/17/21] Duloxetine HCl 30 mg [Cymbalta 30 MG Capsule] 30 mg PO DAILY 03/17/21 [History Confirmed 03/17/21] Allergies/Adverse Reactions: Allergies Allergy/AdvReac Type Severity Reaction Status Date / Time No Known Drug Allergies Allergy Verified 03/17/21 00:42 - Past Medical History Past Medical History: Yes Neurological History: Stroke ENT History: No Pertinent History Cardiac History: High Cholesterol, Hypertension Respiratory History: No Pertinent History Endocrine Medical History: No Pertinent History Musculoskelatal History: No Pertinent History GI Medical History: Gallbladder Disease History: No Pertinent History Pyscho-Social History: No Pertinent History Male Reproductive Disorders: Prostate Problems Comment: REPORTS RHUEMATIC FEVER AND HEPITITIS WHEN HE WAS YOUNG BUT OTHERISE NONSIGNIFICANT. Kidney stones. - Past Surgical History Past Surgical History: Yes Neuro Surgical History: No Pertinent History Cardiac History: No Pertinent History Respiratory Surgery: No Pertinent History GI Surgical History: No Pertinent History Genitourinary Surgical Hx: No Pertinent History Musculskeletal Surgical Hx: Orthopedic Surgery Male Surgical History: No Pertinent History Other Surgical History: Colonoscopy - Social History Smoking Status: Current every day smoker How long have you smoked: 40 years Exposure to second hand smoke: Yes Alcohol: Heavy, Daily Drug Use: none - Physical Exam Vital Signs: Vital Signs - 24 hr Temp Pulse Resp BP Pulse Ox 03/17/21 16:00 98.1 F 87 16 114/73 95 03/17/21 11:26 60 16 147/94 98 03/17/21 11:25 98.3 F 85 16 121/81 98 03/17/21 10:26 60 16 147/94 98 03/17/21 09:00 60 16 150/89 98 03/17/21 07:26 98 03/17/21 06:00 90 18 144/104 97 03/17/21 04:49 15 139/87 03/17/21 03:47 90 19 136/82 98 03/17/21 01:42 92 H 17 140/94 98 03/17/21 00:31 122 H 24 167/111 96 General Appearance: no apparent distress Neurologic Exam: alert, motor weakness, slurred speech Respiratory Exam: normal breath sounds, lungs clear, No respiratory distress Cardiovascular Exam: regular rate/rhythm, normal heart sounds, normal peripheral pulses Gastrointestinal/Abdomen Exam: soft, normal bowel sounds, tenderness (LLQ), No mass Extremity Exam: normal inspection, normal range of motion, pelvis stable Results - Labs Lab/Micro Results: Lab Results-Last 24 Hours 03/17/21 03/17/21 03/17/21 Range/Units 01:33 01:33 01:33 WBC 9.7 (4.0-10.5) K/mm3 RBC 6.45 H* (4.1-5.6) M/mm3 Hgb 19.6 H (12.5-18.0) gm/dl Hct 56.8 H (42-50) % MCV 88.1 (78-100) fl MCH 30.4 (26-32) pg MCHC 34.5 (32-36) g/dl RDW 15.2 H (11.5-14.0) % Plt Count 222 (150-450) K/mm3 MPV 11.0 (7.5-11.0) fl Gran % 57.5 (36.0-66.0) % Eos # (Auto) 0.08 (0-0.5) Absolute Lymphs (auto) 3.23 (1.0-4.6) Absolute Monos (auto) 0.77 (0.0-1.3) Lymphocytes % 33.3 (24.0-44.0) % Monocytes % 7.9 (0.0-12.0) % Eosinophils % 0.8 (0.00-5.0) % Basophils % 0.5 (0.0-0.4) % Absolute Granulocytes 5.58 (1.4-6.9) Basophils # 0.05 (0-0.4) Sodium 133 L (137-145) mmol/L Potassium 4.3 (3.5-5.1) mmol/L Chloride 95 L (98-107) mmol/L Carbon Dioxide 21 L (22-30) mmol/L Anion Gap 21.0 H (5-15) MEQ/L BUN 4 L (9-20) mg/dL Creatinine 0.84 (0.66-1.25) mg/dL Estimated GFR > 60.0 ML/MIN Glucose 103 (74-106) mg/dL Calcium 9.8 (8.4-10.2) mg/dL Total Bilirubin 0.90 (0.2-1.3) mg/dL AST 67 H (17-59) U/L ALT 46 (0-50) U/L Alkaline Phosphatase 124 (38-126) U/L Troponin I (0.000-0.034) ng/mL Serum Total Protein 8.1 (6.3-8.2) g/dL Albumin 4.5 (3.5-5.0) g/dL Lipase 193 (23-300) U/L Ethyl Alcohol 169 H (0-10) mg/dL SARS-CoV-2 (PCR) (NEGATIVE) 03/17/21 03/17/21 03/17/21 Range/Units 01:34 04:48 05:46 WBC (4.0-10.5) K/mm3 RBC (4.1-5.6) M/mm3 Hgb (12.5-18.0) gm/dl Hct (42-50) % MCV (78-100) fl MCH (26-32) pg MCHC (32-36) g/dl RDW (11.5-14.0) % Plt Count (150-450) K/mm3 MPV (7.5-11.0) fl Gran % (36.0-66.0) % Eos # (Auto) (0-0.5) Absolute Lymphs (auto) (1.0-4.6) Absolute Monos (auto) (0.0-1.3) Lymphocytes % (24.0-44.0) % Monocytes % (0.0-12.0) % Eosinophils % (0.00-5.0) % Basophils % (0.0-0.4) % Absolute Granulocytes (1.4-6.9) Basophils # (0-0.4) Sodium (137-145) mmol/L Potassium (3.5-5.1) mmol/L Chloride (98-107) mmol/L Carbon Dioxide (22-30) mmol/L Anion Gap (5-15) MEQ/L BUN (9-20) mg/dL Creatinine (0.66-1.25) mg/dL Estimated GFR ML/MIN Glucose (74-106) mg/dL Calcium (8.4-10.2) mg/dL Total Bilirubin (0.2-1.3) mg/dL AST (17-59) U/L ALT (0-50) U/L Alkaline Phosphatase (38-126) U/L Troponin I < 0.012 < 0.012 (0.000-0.034) ng/mL Serum Total Protein (6.3-8.2) g/dL Albumin (3.5-5.0) g/dL Lipase (23-300) U/L Ethyl Alcohol (0-10) mg/dL SARS-CoV-2 (PCR) NEGATIVE (NEGATIVE) 03/17/21 Range/Units 08:00 WBC (4.0-10.5) K/mm3 RBC (4.1-5.6) M/mm3 Hgb (12.5-18.0) gm/dl Hct (42-50) % MCV (78-100) fl MCH (26-32) pg MCHC (32-36) g/dl RDW (11.5-14.0) % Plt Count (150-450) K/mm3 MPV (7.5-11.0) fl Gran % (36.0-66.0) % Eos # (Auto) (0-0.5) Absolute Lymphs (auto) (1.0-4.6) Absolute Monos (auto) (0.0-1.3) Lymphocytes % (24.0-44.0) % Monocytes % (0.0-12.0) % Eosinophils % (0.00-5.0) % Basophils % (0.0-0.4) % Absolute Granulocytes (1.4-6.9) Basophils # (0-0.4) Sodium (137-145) mmol/L Potassium (3.5-5.1) mmol/L Chloride (98-107) mmol/L Carbon Dioxide (22-30) mmol/L Anion Gap (5-15) MEQ/L BUN (9-20) mg/dL Creatinine (0.66-1.25) mg/dL Estimated GFR ML/MIN Glucose (74-106) mg/dL Calcium (8.4-10.2) mg/dL Total Bilirubin (0.2-1.3) mg/dL AST (17-59) U/L ALT (0-50) U/L Alkaline Phosphatase (38-126) U/L Troponin I < 0.012 (0.000-0.034) ng/mL Serum Total Protein (6.3-8.2) g/dL Albumin (3.5-5.0) g/dL Lipase (23-300) U/L Ethyl Alcohol (0-10) mg/dL SARS-CoV-2 (PCR) (NEGATIVE) - Radiology Impressions Radiology Exams & Impressions: Radiology Procedures Category Date Time Status ABDOMEN AND PELVIS W CONTRAST [CT] Stat Exams 03/17/21 01:28 Completed Assessment/Plan (1) Colitis Current Visit: Yes Status: Acute Assessment & Plan: transfer to [facility] for GI consult and further care Code(s): K52.9 - NONINFECTIVE GASTROENTERITIS AND COLITIS, UNSPECIFIED (2) AAA (abdominal aortic aneurysm) Current Visit: Yes Status: Acute Code(s): I71.4 - ABDOMINAL AORTIC ANEURYSM, WITHOUT RUPTURE (3) Alcoholism Current Visit: Yes Status: Acute Code(s): F10.20 - ALCOHOL DEPENDENCE, UNCOMPLICATED (4) Hepatic steatosis Current Visit: Yes Status: Acute Code(s): K76.0 - FATTY (CHANGE OF) LIVER, NOT ELSEWHERE CLASSIFIED (5) CVA (cerebral infarction) Current Visit: No Status: Acute Qualifiers: Cerebral infarction mechanism: unspecified mechanism Qualified Code(s): I63.9 - Cerebral infarction, unspecified Code(s): I63.9 - CEREBRAL INFARCTION, UNSPECIFIED Hospital Summary - Vitals & Intake/Output Vital Signs: Vital Signs Temperature 98.1 F 03/17/21 16:00 Pulse Rate 87 03/17/21 16:00 Respiratory Rate 16 03/17/21 16:00 Blood Pressure 114/73 03/17/21 16:00 O2 Sat by Pulse Oximetry 95 03/17/21 16:00 Intake & Output: Intake & Output 03/15/21 03/16/21 03/17/21 03/18/21 11:59 11:59 11:59 11:59 Weight 108.1 kg - Lab Result Diagrams: 03/17/21 01:33 03/17/21 01:33 Lab Results-Last 24 Hrs: Lab Results-Last 24 Hours 03/17/21 03/17/21 03/17/21 Range/Units 01:33 01:33 01:33 WBC 9.7 (4.0-10.5) K/mm3 RBC 6.45 H* (4.1-5.6) M/mm3 Hgb 19.6 H (12.5-18.0) gm/dl Hct 56.8 H (42-50) % MCV 88.1 (78-100) fl MCH 30.4 (26-32) pg MCHC 34.5 (32-36) g/dl RDW 15.2 H (11.5-14.0) % Plt Count 222 (150-450) K/mm3 MPV 11.0 (7.5-11.0) fl Gran % 57.5 (36.0-66.0) % Eos # (Auto) 0.08 (0-0.5) Absolute Lymphs (auto) 3.23 (1.0-4.6) Absolute Monos (auto) 0.77 (0.0-1.3) Lymphocytes % 33.3 (24.0-44.0) % Monocytes % 7.9 (0.0-12.0) % Eosinophils % 0.8 (0.00-5.0) % Basophils % 0.5 (0.0-0.4) % Absolute Granulocytes 5.58 (1.4-6.9) Basophils # 0.05 (0-0.4) Sodium 133 L (137-145) mmol/L Potassium 4.3 (3.5-5.1) mmol/L Chloride 95 L (98-107) mmol/L Carbon Dioxide 21 L (22-30) mmol/L Anion Gap 21.0 H (5-15) MEQ/L BUN 4 L (9-20) mg/dL Creatinine 0.84 (0.66-1.25) mg/dL Estimated GFR > 60.0 ML/MIN Glucose 103 (74-106) mg/dL Calcium 9.8 (8.4-10.2) mg/dL Total Bilirubin 0.90 (0.2-1.3) mg/dL AST 67 H (17-59) U/L ALT 46 (0-50) U/L Alkaline Phosphatase 124 (38-126) U/L Troponin I (0.000-0.034) ng/mL Serum Total Protein 8.1 (6.3-8.2) g/dL Albumin 4.5 (3.5-5.0) g/dL Lipase 193 (23-300) U/L Ethyl Alcohol 169 H (0-10) mg/dL SARS-CoV-2 (PCR) (NEGATIVE) 03/17/21 03/17/21 03/17/21 Range/Units 01:34 04:48 05:46 WBC (4.0-10.5) K/mm3 RBC (4.1-5.6) M/mm3 Hgb (12.5-18.0) gm/dl Hct (42-50) % MCV (78-100) fl MCH (26-32) pg MCHC (32-36) g/dl RDW (11.5-14.0) % Plt Count (150-450) K/mm3 MPV (7.5-11.0) fl Gran % (36.0-66.0) % Eos # (Auto) (0-0.5) Absolute Lymphs (auto) (1.0-4.6) Absolute Monos (auto) (0.0-1.3) Lymphocytes % (24.0-44.0) % Monocytes % (0.0-12.0) % Eosinophils % (0.00-5.0) % Basophils % (0.0-0.4) % Absolute Granulocytes (1.4-6.9) Basophils # (0-0.4) Sodium (137-145) mmol/L Potassium (3.5-5.1) mmol/L Chloride (98-107) mmol/L Carbon Dioxide (22-30) mmol/L Anion Gap (5-15) MEQ/L BUN (9-20) mg/dL Creatinine (0.66-1.25) mg/dL Estimated GFR ML/MIN Glucose (74-106) mg/dL Calcium (8.4-10.2) mg/dL Total Bilirubin (0.2-1.3) mg/dL AST (17-59) U/L ALT (0-50) U/L Alkaline Phosphatase (38-126) U/L Troponin I < 0.012 < 0.012 (0.000-0.034) ng/mL Serum Total Protein (6.3-8.2) g/dL Albumin (3.5-5.0) g/dL Lipase (23-300) U/L Ethyl Alcohol (0-10) mg/dL SARS-CoV-2 (PCR) NEGATIVE (NEGATIVE) 03/17/21 Range/Units 08:00 WBC (4.0-10.5) K/mm3 RBC (4.1-5.6) M/mm3 Hgb (12.5-18.0) gm/dl Hct (42-50) % MCV (78-100) fl MCH (26-32) pg MCHC (32-36) g/dl RDW (11.5-14.0) % Plt Count (150-450) K/mm3 MPV (7.5-11.0) fl Gran % (36.0-66.0) % Eos # (Auto) (0-0.5) Absolute Lymphs (auto) (1.0-4.6) Absolute Monos (auto) (0.0-1.3) Lymphocytes % (24.0-44.0) % Monocytes % (0.0-12.0) % Eosinophils % (0.00-5.0) % Basophils % (0.0-0.4) % Absolute Granulocytes (1.4-6.9) Basophils # (0-0.4) Sodium (137-145) mmol/L Potassium (3.5-5.1) mmol/L Chloride (98-107) mmol/L Carbon Dioxide (22-30) mmol/L Anion Gap (5-15) MEQ/L BUN (9-20) mg/dL Creatinine (0.66-1.25) mg/dL Estimated GFR ML/MIN Glucose (74-106) mg/dL Calcium (8.4-10.2) mg/dL Total Bilirubin (0.2-1.3) mg/dL AST (17-59) U/L ALT (0-50) U/L Alkaline Phosphatase (38-126) U/L Troponin I < 0.012 (0.000-0.034) ng/mL Serum Total Protein (6.3-8.2) g/dL Albumin (3.5-5.0) g/dL Lipase (23-300) U/L Ethyl Alcohol (0-10) mg/dL SARS-CoV-2 (PCR) (NEGATIVE) - Radiology Exams Ordered Rad Exams-Entire Visit: Radiology Procedures Category Date Time Status ABDOMEN AND PELVIS W CONTRAST [CT] Stat Exams 03/17/21 01:28 Completed - Discharge Disposition: DC TO [facility] Condition: Stable Prescriptions: No Action Tamsulosin HCl 0.4 mg [Flomax 0.4 MG] 0.4 mg PO DAILY Lisinopril 5 mg [Zestril 5 MG] 5 mg PO DAILY Atorvastatin Calcium [Lipitor] 80 mg PO DAILY Baclofen 10 mg [Lioresal 10 mg] 10 mg PO TIDPRN PRN PRN Reason: Muscle Spasms PANTOPRAZOLE 40 mg Tablet [Protonix 40MG Tablet] 40 mg PO QAM #30 tab Aspirin EC 81 mg [Ecotrin 81 mg] 81 mg PO DAILY #30 tablet Apixaban [Eliquis] 5 mg PO BID #60 tablet Metoprolol Succinate 50 mg [Toprol Xl 50 MG] 50 mg PO DAILY #30 tablet.sa Cyanocobalamin (Vitamin B-12) [Vitamin B-12] 1,000 mcg PO DAILY Duloxetine HCl 30 mg [Cymbalta 30 MG Capsule] 30 mg PO DAILY Follow up with: GIANCARLO TIM [Primary Care Provider] - Forms: Ambulance Transport Record, Transfer Record Inter-Agency
[2021-03-17 19:52] VITALS: BP 114/76; PULSE 74
[2021-03-17] MEDS ORDERED: NON-FORMULARY ITEM (Apixaban [Eliquis] 5 MG) PO SCH (22:00)
[2021-03-18] MEDS ORDERED: NON-FORMULARY ITEM (Cyanocobalamin (Vitamin B-12) [Vitamin B-12] 1,000 MCG) PO SCH (10:00)
[2021-03-18] MEDS ORDERED: NON-FORMULARY ITEM (Atorvastatin Calcium [Lipitor] 80 MG) PO SCH (10:00)
== END 2021-03-17 20:15 | disposition home or self-care (01) ==
LOC: ED 00:24 → MED SURG 11:10
PROVIDERS: ADMIT Family Medicine; ATTEND Family Medicine
DX: K52.9 Noninfective gastroenteritis and colitis, unspecified (principal); R11.2 Nausea with vomiting, unspecified; I71.4 Abdominal aortic aneurysm, without rupture; F10.20 Alcohol dependence, uncomplicated; K76.0 Fatty (change of) liver, not elsewhere classified; Z79.899 Other long term (current) drug therapy; Z79.01 Long term (current) use of anticoagulants; Z20.828 Contact with and (suspected) exposure to other viral communicable diseases; I69.351 Hemiplegia and hemiparesis following cerebral infarction affecting right dominant side; I10 Essential (primary) hypertension; E78.00 Pure hypercholesterolemia, unspecified; E87.2 Acidosis
CPT/HCPCS: 36415; 74177; 80053; 83690; 84484; 85025; 93268; 96360; 96374; 99284; G0378; G0480; U0003; 80307; J2405; A9270-GY

== ENCOUNTER 2021-05-30 10:56 | Emergency (ER) | payer MEDICARE ==
--- NOTE | 2021-05-30 12:26 | ERPHSYRPT ---
- History of Present Illness Time Seen by Provider: 05/30/21 11:23 Source: patient Exam Limitations: no limitations Patient Subjective Stated Complaint: Right foot pain Triage Nursing Assessment: Patient brought back to ED via EMS and transferred to bed per with assist of 1. Patient A+O x3. Patient's skin pink, warm and dry. Patient complains of right foot pain that started today and is unable to bear weight. Patient denies injury. Strong and equal pulses noted to BLE. Patient complains of pain 5/10. Patient does have red rash noted to right foot. Physician History: 61 years old male with multiple medical problems including CVA, wheelchair- bound, on Eliquis presented in the ER with chief complaint of right foot pain since morning when he tried to get up and was not able to bear any weight on it. Pain is sharp moderate intensity, more with weightbearing and improves with resting. He also noticed some skin lesions on the toes and lateral side of right foot. Patient keeps socks and shoes all the time on. No obvious swelling of the foot. No leg pain. No swelling of the leg. Denies any chest pain palpitations or shortness of breath. Allergies/Adverse Reactions: No Known Drug Allergies Allergy (Verified 05/30/21 11:08) Home Medications: Atorvastatin Calcium [Lipitor] 80 mg PO DAILY 08/31/17 [History] Lisinopril 5 mg [Zestril 5 MG] 5 mg PO DAILY 08/31/17 [History] Tamsulosin HCl 0.4 mg [Flomax 0.4 MG] 0.4 mg PO DAILY 08/31/17 [History] Baclofen 10 mg [Lioresal 10 mg] 10 mg PO TIDPRN PRN 03/30/19 [History] Cyanocobalamin (Vitamin B-12) [Vitamin B-12] 1,000 mcg PO DAILY 03/17/21 [History] Duloxetine HCl 30 mg [Cymbalta 30 MG Capsule] 30 mg PO DAILY 03/17/21 [History] Hx Tetanus, Diphtheria Vaccination/Date Given: Yes (2017) Hx Influenza Vaccination/Date Given: No Hx Pneumococcal Vaccination/Date Given: No Immunizations Up to Date: Yes Travel Risk - International Travel Have you traveled outside of the country in past 3 weeks: No - Coronavirus Screening Are you exhibiting any of the following symptoms?: No Close contact with a COVID-19 positive Pt in past 14-21 Days: No - Vaccine Status Have you recieved a Covid-19 vaccination: No - Review of Systems Constitutional: No Symptoms Ears, Nose, & Throat: No Symptoms Respiratory: No Symptoms Cardiac: No Symptoms Abdominal/Gastrointestinal: No Symptoms Genitourinary Symptoms: No Symptoms Musculoskeletal: Joint Pain, Myalgias Skin: Rash, Skin Lesions Neurological: No Symptoms Endocrine: No Symptoms Hematologic/Lymphatic: No Symptoms - Past Medical History Pertinent Past Medical History: Yes Neurological History: Stroke ENT History: No Pertinent History Cardiac History: High Cholesterol, Hypertension Respiratory History: No Pertinent History Endocrine Medical History: No Pertinent History Musculoskeletal History: No Pertinent History GI Medical History: Gallbladder Disease History: No Pertinent History Psycho-Social History: No Pertinent History Male Reproductive Disorders: Prostate Problems Other Medical History: REPORTS RHUEMATIC FEVER AND HEPITITIS WHEN HE WAS YOUNG BUT OTHERISE NONSIGNIFICANT. Kidney stones. - Past Surgical History Past Surgical History: Yes Neuro Surgical History: No Pertinent History Cardiac: No Pertinent History Respiratory: No Pertinent History Gastrointestinal: No Pertinent History Genitourinary: No Pertinent History Musculoskeletal: Orthopedic Surgery Male Surgical History: No Pertinent History Other Surgical History: Colonoscopy - Social History Smoking Status: Current every day smoker How long have you smoked: 40 years Exposure to second hand smoke: Yes Drug Use: none Patient Lives Alone: Yes - Nursing Vital Signs Nursing Vital Signs: Initial Vital Signs Temperature 97.6 F 05/30/21 11:09 Pulse Rate 117 H 05/30/21 11:09 Respiratory Rate 18 05/30/21 11:09 Blood Pressure 130/97 05/30/21 11:09 O2 Sat by Pulse Oximetry 98 05/30/21 11:09 Pain Scale Pain Intensity 5 - Physical Exam General Appearance: no apparent distress, alert Eyes, Ears, Nose, Throat Exam: normal ENT inspection Cardiovascular/Respiratory Exam: normal breath sounds, heart sounds normal, tachycardia Back Exam: normal inspection, normal range of motion Legs Exam: bilateral leg: non-tender, normal inspection, normal range of motion, no evidence of injury Knees Exam: bilateral knee: non-tender, normal inspection, normal range of motion, no evidence of injury Ankle Exam: bilateral ankle: non-tender, normal inspection, normal range of motion, no evidence of injury Foot Exam: right foot: bone tenderness (Anterior midfoot), limited range of motion, pain, soft tissue tenderness, other (Small vesicular rash with erythematous base and partial scaling on the sides of toes, lateral side of foot, tender.), left foot: non-tender, normal range of motion, bilateral foot: no evidence of injury Neuro/Tendon Exam: normal sensation, normal motor functions Mental Status Exam: alert, oriented x 3 SpO2 Interpretation: normal SpO2: 98 O2 Delivery: Room Air Ordered Tests: Active Orders 24 hr Category Date Time Status FOOT (MINIMUM 3 VIEWS) Stat Exams 05/30/21 12:35 Taken Medication Summary Generic Name Dose Route Start Last Admin Trade Name Freq PRN Reason Stop Dose Admin Acetaminophen 1,000 mg 05/30/21 12:57 05/30/21 13:03 Tylenol Extra Strength 500 Mg PO 06/29/21 12:56 1,000 mg Q4H PRN PRN Administration HEADACHE Clotrimazole 30 gm 05/30/21 22:00 05/30/21 13:03 Lotrimin Cream 30 Gm TP 06/29/21 21:59 30 gm BID SHERRI Administration - Progress Progress: improved Progress Note: 05/30/21 12:59 X-rays are negative for fracture dislocation. I believe patient has tinea pedis, started on clotrimazole. Outpatient follow-up recommended. Recommended keeping feet exposed to ear dry. Patient is not ambulatory and recommended using cane or walker for standing if needed. Outpatient follow-up. Counseled pt/family regarding: diagnosis, need for follow-up, rad results - Departure Departure Disposition: Home Clinical Impression: Acute pain of right foot, Tinea pedis, right Condition: Stable Critical Care Time: No Referrals: GIANCARLO TIM MD [Primary Care Provider] - (Call tomorrow for appointment.) Instructions: Athlete's Foot (DC) Additional Instructions: take Tylenol as needed for pain, follow up with PCP for re evaluation. return to ER for any worsening. apply cream twice a day . return to ER for worsening
[2021-05-30] MEDS ORDERED: TYLENOL EXTRA STRENGTH 500 MG PO PRN (12:57)
[2021-05-30 14:59] LABS: BASOPHIL % 0.5 % (0.0-0.4); Basophil (Absolute #) 0.04 (0-0.4); Eosinophil % 0.1 % (0.00-5.0); Eosinophil (Absolute #) 0.01 (0-0.5); Hematocrit 58.6 % (42-50); Hemoglobin 20.1 gm/dl (12.5-18.0); Lymphocyte (Absolute #) 1.91 (1.0-4.6); Lymphocytes % 22.6 % (24.0-44.0); Mean Cell Volume 86.8 fl (78-100); Mean Corpuscular Hemoglobin 29.8 pg (26-32); Mean Corpuscular Hgb Concent. 34.3 g/dl (32-36); Mean Platelet Volume 10.8 fl (7.5-11.0); Monocytes % 8.3 % (0.0-12.0); Neutrophil % 68.5 % (36.0-66.0); Platelet Count 158 K/mm3 (150-450); Red Blood Count 6.75 M/mm3 (4.1-5.6); Red Cell Distribution Width 17.9 % (11.5-14.0); White Blood Count 8.5 K/mm3 (4.0-10.5)
[2021-05-30 15:08] LABS: Appearance CLOUDY (CLEAR); Bacteria RARE /HPF (NEGATIVE); Bilirubin NEGATIVE (NEGATIVE); Blood LARGE Ery/ul (0-5); Epithelial Cells FEW /HPF (FEW); Glucose NEGATIVE (NEGATIVE); Ketones NEGATIVE (NEGATIVE); Leukocyte Esterase MODERATE (NEGATIVE); Mucus MODERATE /HPF (NEGATIVE); Nitrite NEGATIVE (NEGATIVE); Non-Squamous Epithelial Cells RARE /HPF (FEW); Protein,Urine Dip 100 (Negative); Specific Gravity 1.024 (1.005-1.025); Urobilinogen 2 mg/dL (0-1); WBC >100 /HPF (0-5)
[2021-05-30 15:09] VITALS: BP 117/92; PULSE 96; O2SAT 98
[2021-05-30 15:11] LABS: ALBUMIN 3.6 g/dL (3.5-5.0); ALKALINE PHOSPHATASE 167 U/L (38-126); ANION GAP 12.9 MEQ/L (5-15); BLOOD UREA NITROGEN 6 mg/dL (9-20); CHLORIDE 105 mmol/L (98-107); Calcium 9.3 mg/dL (8.4-10.2); Carbon Dioxide 21 mmol/L (22-30); Creatinine 1 0.76 mg/dL (0.66-1.25); EST GLOMERULAR FILTRATION RATE > 60.0 ML/MIN; Glucose 117 mg/dL (74-106); Potassium 4.5 mmol/L (3.5-5.1); SGOT/AST 58 U/L (17-59); SGPT/ALT 35 U/L (0-50); SODIUM 134 mmol/L (137-145)
[2021-05-30 15:16] LABS: RBC >101 /HPF (0-2)
[2021-05-30] MEDS ORDERED: ROCEPHIN 2 Gm-D5w 50ML BAG** 2 G/50 ML IVPB IV STA (15:51)
[2021-05-30] MEDS ORDERED: ROCEPHIN 2 Gm-D5w 50ML BAG** 2 G/50 ML IVPB IV ONE (16:05)
--- NOTE | 2021-05-30 19:44 | XRAY ---
Indication: Pain. Comparison: None 3 nonweightbearing views right foot demonstrates mild osteopenia. No other bony, articular, or soft tissue abnormalities.
--- NOTE | 2021-05-30 19:44 | XRAY ---
Indication: Stroke. Multiple contiguous axial images obtained through the head without contrast. Comparison: January 22, 2021. Again large old left cerebral infarct. No acute intracranial hemorrhage, hydrocephalus, or mass effect. Fourth ventricle is midline. Bony calvarium intact. Mild mucosal thickening left maxillary sinus. Remaining visualized paranasal sinuses and mastoid air cells are clear. Impression: Grossly stable old left cerebral infarct. No acute intracranial abnormalities. Incidental left maxillary sinus disease. Comment: Preliminary interpretation made by [facility]. No critical discrepancy.
[2021-05-30] MEDS ORDERED: LOTRIMIN CREAM 30 GM TP SCH (22:00)
== END 2021-05-30 16:40 | disposition home or self-care (01) ==
LOC: ED 10:56
DX: M79.671 Pain in right foot (principal); B35.3 Tinea pedis; E78.00 Pure hypercholesterolemia, unspecified; I10 Essential (primary) hypertension; R53.1 Weakness
CPT/HCPCS: 36000; 36415; 70450; 73630; 80053; 81001; 84484; 85025; 87077; 87086; 87186; 93005; 93041; 96374; 99285; P9612; J0696; A9270-GY

== ENCOUNTER 2021-11-08 15:49 | Observation (INO) | payer MEDICARE ==
[2021-11-08] MEDS ORDERED: Sodium Chloride 0.9% 1000 ML 1,000 ML ONE ×2 (15:52→17:12)
[2021-11-08] MEDS ORDERED: Sodium Chloride 0.9% 1000 ML 1,000 ML IV STA ×2 (16:05→17:12)
--- NOTE | 2021-11-08 16:19 | XRAY ---
Indication: Acute mental status change. Stroke. Multiple contiguous axial images obtained through the head without contrast. Comparison: May 30, 2021. Again large old left cerebral infarct. No acute intracranial hemorrhage, hydrocephalus, or mass effect. Fourth ventricle is midline. Bony calvarium intact. Tiny fluid level in left maxillary sinus. Remaining paranasal sinuses and mastoid air cells are clear. Impression: Grossly stable large old left cerebral infarct. No new/acute intracranial abnormalities. Incidental left maxillary sinus disease.
--- NOTE | 2021-11-08 16:33 | XRAY ---
Indication: Acute mental status change. Comparison: January 22, 2021. Portable chest again hyperinflated and clear. Heart not enlarged. Bony thorax intact again with mild osteopenia, degenerative changes, and old right 8 rib fracture. Impression: Continued nonacute hyperinflated chest with chronic bony findings.
[2021-11-08 17:00] LABS: CK-Creatinine Phosphokinase 36 U/L (55-170); ETHYL ALCOHOL < 10 mg/dL (0-10); GLUCOSE,RANDOM 143 mg/dL (74-106); NT PRO BNP 981 pg/mL (0-900)
[2021-11-08 17:13] LABS: PTT 27.9 SECONDS (25.1-36.5)
[2021-11-08 17:17] LABS: Hematocrit 37.5 % (42-50); Hemoglobin 12.2 gm/dl (12.5-18.0); Mean Corpuscular Hemoglobin 29.6 pg (26-32); Mean Corpuscular Hgb Concent. 32.5 g/dl (32-36); Mean Platelet Volume 11.3 fl (7.5-11.0); Platelet Count 284 K/mm3 (150-450); Red Blood Count 4.12 M/mm3 (4.1-5.6); Red Cell Distribution Width 16.9 % (11.5-14.0); White Blood Count 11.1 K/mm3 (4.0-10.5)
[2021-11-08 17:42] LABS: Bacteria FEW /HPF (NEGATIVE); Mucus SLIGHT /HPF (NEGATIVE); WBC 26-50 /HPF (0-5)
[2021-11-08 17:43] LABS: Appearance SLIGHTLY CLOUDY (CLEAR); Bilirubin SMALL (NEGATIVE); Glucose NEGATIVE (NEGATIVE); Ketones NEGATIVE (NEGATIVE); Nitrite POSITIVE (NEGATIVE); Protein,Urine Dip TRACE (Negative); RBC TRACE-INTACT Ery/ul (0-5); Specific Gravity 1.025 (1.005-1.025); Urobilinogen 2 mg/dL (0-1)
[2021-11-08 17:56] LABS: Amphetamine,Urine NEGATIVE (NEGATIVE); Barbiturate,Urine NEGATIVE (NEGATIVE); Benzodiazepine,Urine NEGATIVE (NEGATIVE); Cocaine,Urine NEGATIVE (NEGATIVE); Methadone,Urine NEGATIVE (NEGATIVE); Opiate,Urine NEGATIVE (NEGATIVE); PCP,Urine NEGATIVE (NEGATIVE); THC,Urine POSITIVE (NEGATIVE)
[2021-11-08] MEDS ORDERED: ROCEPHIN 1 Gm-D5w 50 ml Bag** 1 G/50 ML IVPB IV STA (18:43)
[2021-11-08 18:44] LABS: Dipstick done @ ? MAIN LAB
[2021-11-08] MEDS ORDERED: ROCEPHIN 1 Gm-D5w 50 ml Bag** 1 G/50 ML IVPB IV ONE (18:47)
--- NOTE | 2021-11-08 18:51 | ERPHSYRPT ---
- History of Present Illness Time Seen by Provider: 11/08/21 16:00 Source: EMS Exam Limitations: clinical condition Patient Subjective Stated Complaint: Pt is confused but responsive to painful stimuli. Triage Nursing Assessment: Pt presents to ER by ambulance from home. Pt was at home with home health care provider. EMS states patient got up to go use restroom and then had sudden change in mental status. Pt is confused and responsive to painful stimili upon arrival. Pupils 3mm bilaterally, PERRL. Pt has hx of seizures, stroke x 3, and alcoholism. Pt skin is pale and jaundice to lower extremitites. Pt has mulitple skin tears to elbow, hands, upper arm. Pt is weak and lethargic. Respirations are shallow and slightly labored. Physician History: Patient is a 61-year-old white male who presents with altered mental status of approximately 40 minutes duration by ambulance. He was noted by EMS EMS to be in atrial fib. Records indicate he has had atrial fib in the past he also has a history of CVA in the past. He has a history of heavy alcohol use but apparently stopped within the last month. Timing/Duration: today Severity: severe Baseline/Normal Cognition: alert oriented x 3 Current Cognition: poor alertness Allergies/Adverse Reactions: No Known Drug Allergies Allergy (Verified 11/08/21 16:58) Home Medications: Atorvastatin Calcium [Lipitor] 80 mg PO DAILY 08/31/17 [History] Lisinopril 5 mg [Zestril 5 MG] 5 mg PO DAILY 08/31/17 [History] Tamsulosin HCl 0.4 mg [Flomax 0.4 MG] 0.4 mg PO DAILY 08/31/17 [History] Baclofen 10 mg [Lioresal 10 mg] 10 mg PO TIDPRN PRN 03/30/19 [History] Cyanocobalamin (Vitamin B-12) [Vitamin B-12] 1,000 mcg PO DAILY 03/17/21 [History] Duloxetine HCl 30 mg [Cymbalta 30 MG Capsule] 30 mg PO DAILY 03/17/21 [History] Hx Tetanus, Diphtheria Vaccination/Date Given: No (unknown) Hx Influenza Vaccination/Date Given: No (unknown) Hx Pneumococcal Vaccination/Date Given: No (unknown) Immunizations Up to Date: No (unknown) Travel Risk - International Travel Have you traveled outside of the country in past 3 weeks: No - Coronavirus Screening Are you exhibiting any of the following symptoms?: No Close contact with a COVID-19 positive Pt in past 14-21 Days: No - Vaccine Status Have you recieved a Covid-19 vaccination: No (unknown) Wastewater Technician: Unknown - Vaccination Dates Dates if Unknown: n/a - Review of Systems All Other Systems: Unable due to condition - Past Medical History Pertinent Past Medical History: Yes Neurological History: Stroke ENT History: No Pertinent History Cardiac History: High Cholesterol, Hypertension Respiratory History: No Pertinent History Endocrine Medical History: No Pertinent History Musculoskeletal History: No Pertinent History GI Medical History: Gallbladder Disease History: No Pertinent History Psycho-Social History: No Pertinent History Male Reproductive Disorders: Prostate Problems Other Medical History: REPORTS RHUEMATIC FEVER AND HEPITITIS WHEN HE WAS YOUNG BUT OTHERISE NONSIGNIFICANT. Kidney stones. - Past Surgical History Past Surgical History: Yes Neuro Surgical History: No Pertinent History Cardiac: No Pertinent History Respiratory: No Pertinent History Gastrointestinal: No Pertinent History Genitourinary: No Pertinent History Musculoskeletal: Orthopedic Surgery Male Surgical History: No Pertinent History Other Surgical History: Colonoscopy - Social History Smoking Status: Unknown if ever smoked How long have you smoked: 40 years Exposure to second hand smoke: No (unknown) Drug Use: none Patient Lives Alone: Yes (yes? with home health care) - Nursing Vital Signs Nursing Vital Signs: Initial Vital Signs Temperature 96.7 F 11/08/21 15:51 Pulse Rate 67 11/08/21 15:51 Respiratory Rate 24 11/08/21 15:51 Blood Pressure 76/50 11/08/21 15:51 O2 Sat by Pulse Oximetry 97 11/08/21 15:51 Pain Scale Pain Intensity 0 - [place] Coma Scale Best Eye Response ([place]): (3) open to voice Best Verbal Response ([place]): (3) inappropriate words Best Motor Response ([place]): (4) withdraws to pain [place] Total: 10 - Physical Exam General Appearance: moderate distress, lethargy Eye Exam: bilateral eye: PERRL, EOMI Ears, Nose, Throat Exam: normal ENT inspection, moist mucous membranes Neck Exam: normal inspection, non-tender, supple Respiratory: normal breath sounds, lungs clear, airway intact, No respiratory distress Cardiovascular: tachycardia, irregular, No edema Gastrointestinal: soft, normal bowel sounds, No mass Back Exam: normal inspection, normal range of motion Extremity Exam: normal inspection, normal range of motion Mental Status: unresponsive erp specialist Exam: PERRL, No abnormal eye position Skin Exam: normal color, warm, dry SpO2 Interpretation: normal SpO2: 94 O2 Delivery: Room Air - Course Nursing assessment & vital signs reviewed: Yes EKG Interpreted by Me: RATE (120), A-fib, NORMAL AXIS, Non-specific ST Changes - Radiology Exams Chest X-ray Interpretation: Negative - CT Exams Head CT Interpretation: Other (CT of the head shows stable old CVA) Chest CT Interpretation: Other (There were no comparison films. Nonoccluding PE distal right main extending to the right lower lobe with nonocclusive PE in the left lower lung. Some emphysema small effusions multiple old right rib fractures) Ordered Tests: Active Orders 24 hr Category Date Time Status EKG-ER Only STAT Care 11/08/21 15:55 Active Miguel [Catheter-[place] Miguel] STAT Care 11/08/21 16:35 Active IV Insertion STAT Care 11/08/21 15:55 Active IV Insertion-2nd Peripheral STAT Care 11/08/21 15:55 Active NPO (ED) STAT Care 11/08/21 15:55 Active Oxygen-ED Only Nasal Cannula 6 lpm Care 11/08/21 18:03 Active CHEST 1 VIEW (PORTABLE) Stat Exams 11/08/21 15:56 Completed CHEST WITH CONTRAST [CT] Stat Exams 11/08/21 18:16 Taken HEAD WITHOUT CONTRAST [CT] Stat Exams 11/08/21 15:56 Completed CBC W DIFF Stat Lab 11/08/21 15:55 Completed CK-Creatinine Phosphokinase Stat Lab 11/08/21 16:30 Completed CMP Stat Lab 11/08/21 19:08 Ordered CULTURE,URINE Stat Lab 11/08/21 16:35 Received D-DIMER QUANTITATIVE Stat Lab 11/08/21 15:55 Completed ETHYL ALCOHOL Stat Lab 11/08/21 16:30 Completed GLUCOSE,RANDOM Stat Lab 11/08/21 16:30 Completed Lactic Acid Stat Lab 11/08/21 16:15 Completed Lactic Acid Stat Lab 11/08/21 18:34 Completed Manual Differential NC Stat Lab 11/08/21 15:55 Completed NT PRO BNP Stat Lab 11/08/21 16:30 Completed PTT Stat Lab 11/08/21 15:55 Completed TROPONIN Q3H Lab 11/08/21 16:30 Completed TROPONIN Q3H Lab 11/08/21 19:00 Ordered TROPONIN Q3H Lab 11/08/21 22:00 Ordered TROPONIN Q3H Lab 11/09/21 01:00 Ordered TROPONIN Q3H Lab 11/09/21 04:00 Ordered Urine Triage Profile Stat Lab 11/08/21 16:35 Completed Medication Summary Discontinued Medications Generic Name Dose Route Start Last Admin Trade Name Katerine PRN Reason Stop Dose Admin Sodium Chloride Confirm 11/08/21 15:52 Sodium Chloride 0.9% 1000 Ml Administered 11/08/21 15:53 Dose 1,000 mls @ ud .ROUTE .STK-MED ONE Sodium Chloride 1,000 mls @ 999 mls/hr 11/08/21 17:12 11/08/21 18:16 Sodium Chloride 0.9% 1000 Ml IV 11/08/21 18:12 Infused .Q1H1M STA Infusion Sodium Chloride Confirm 11/08/21 17:12 Sodium Chloride 0.9% 1000 Ml Administered 11/08/21 17:13 Dose 1,000 mls @ ud .ROUTE .STK-MED ONE Sodium Chloride 1,000 mls @ 999 mls/hr 11/08/21 16:05 11/08/21 17:11 Sodium Chloride 0.9% 1000 Ml IV 11/08/21 17:05 Infused .Q1H1M STA Infusion Ceftriaxone Sodium/Dextrose 1 g in 50 mls @ 100 mls/hr 11/08/21 18:43 11/08/21 19:21 Rocephin 1 Gm-D5w 50 Ml Bag IV 11/08/21 19:12 Infused STAT STA Infusion Ceftriaxone Sodium/Dextrose Confirm 11/08/21 18:47 Rocephin 1 Gm-D5w 50 Ml Bag Administered 11/08/21 18:48 Dose 1 g in 50 mls @ ud IV .STK-MED ONE Lab/Rad Data: Laboratory Result Diagrams 11/08/21 15:55 11/08/21 20:00 Laboratory Results 11/08/21 11/08/21 11/08/21 Range/Units 20:00 18:34 16:35 WBC (4.0-10.5) K/mm3 RBC (4.1-5.6) M/mm3 Hgb (12.5-18.0) gm/dl Hct (42-50) % MCV (78-100) fl MCH (26-32) pg MCHC (32-36) g/dl RDW (11.5-14.0) % Plt Count (150-450) K/mm3 MPV (7.5-11.0) fl APTT (25.1-36.5) SECONDS D-Dimer (215-500) ng/mL Sodium 132 L (137-145) mmol/L Potassium 4.2 (3.5-5.1) mmol/L Chloride 109 H (98-107) mmol/L Carbon Dioxide 14 L* (22-30) mmol/L Anion Gap 12.4 (5-15) MEQ/L BUN 15 (9-20) mg/dL Creatinine 0.81 (0.66-1.25) mg/dL Estimated GFR > 60.0 ML/MIN Glucose 115 H (74-106) mg/dL Lactic Acid 1.3 (0.4-2.0) Calcium 8.2 L (8.4-10.2) mg/dL Total Bilirubin 1.50 H (0.2-1.3) mg/dL AST 21 (17-59) U/L ALT 9 (0-50) U/L Alkaline Phosphatase 89 (38-126) U/L Creatine Kinase (55-170) U/L Troponin I (0.000-0.034) ng/mL NT-Pro-B Natriuret Pep (0-900) pg/mL Serum Total Protein 6.0 L (6.3-8.2) g/dL Albumin 2.7 L (3.5-5.0) g/dL Urinalys Dipstick Clnc Urine Color (YELLOW) Urine Appearance (CLEAR) Urine pH (5-6) Ur Specific Bath (1.005-1.025) POC Urine Protein Conf (Negative) Urine Ketones (NEGATIVE) Urine Nitrite (NEGATIVE) Urine Bilirubin (NEGATIVE) Urine Urobilinogen (0-1) mg/dL Urine Leukocytes (NEGATIVE) Urine WBC (Auto) (0-5) /HPF Urine RBC (Auto) (0-2) /HPF U Epithel Cells (Auto) (FEW) /HPF Urine Bacteria (Auto) (NEGATIVE) /HPF Urine RBC (0-5) Cali/ul Urine Mucus (Auto) (NEGATIVE) /HPF Urine Glucose (NEGATIVE) mg/dL Urine Opiates Level NEGATIVE (NEGATIVE) Ur Methadone NEGATIVE (NEGATIVE) Urine Barbiturates NEGATIVE (NEGATIVE) Ur Phencyclidine (PCP) NEGATIVE (NEGATIVE) Urine Amphetamine NEGATIVE (NEGATIVE) U Benzodiazepine Level NEGATIVE (NEGATIVE) Urine Cocaine NEGATIVE (NEGATIVE) Urine Marijuana (THC) POSITIVE (NEGATIVE) Ethyl Alcohol (0-10) mg/dL 11/08/21 11/08/21 11/08/21 Range/Units 16:35 16:30 16:30 WBC (4.0-10.5) K/mm3 RBC (4.1-5.6) M/mm3 Hgb (12.5-18.0) gm/dl Hct (42-50) % MCV (78-100) fl MCH (26-32) pg MCHC (32-36) g/dl RDW (11.5-14.0) % Plt Count (150-450) K/mm3 MPV (7.5-11.0) fl APTT (25.1-36.5) SECONDS D-Dimer (215-500) ng/mL Sodium (137-145) mmol/L Potassium (3.5-5.1) mmol/L Chloride (98-107) mmol/L Carbon Dioxide (22-30) mmol/L Anion Gap (5-15) MEQ/L BUN (9-20) mg/dL Creatinine (0.66-1.25) mg/dL Estimated GFR ML/MIN Glucose 143 H (74-106) mg/dL Lactic Acid (0.4-2.0) Calcium (8.4-10.2) mg/dL Total Bilirubin (0.2-1.3) mg/dL AST (17-59) U/L ALT (0-50) U/L Alkaline Phosphatase (38-126) U/L Creatine Kinase 36 L (55-170) U/L Troponin I < 0.012 (0.000-0.034) ng/mL NT-Pro-B Natriuret Pep 981 H (0-900) pg/mL Serum Total Protein (6.3-8.2) g/dL Albumin (3.5-5.0) g/dL Urinalys Dipstick Clnc MAIN LAB Urine Color DARK YELLOW (YELLOW) Urine Appearance SLIGHTLY CLOUDY (CLEAR) Urine pH 6.0 (5-6) Ur Specific Bath 1.025 (1.005-1.025) POC Urine Protein Conf TRACE (Negative) Urine Ketones NEGATIVE (NEGATIVE) Urine Nitrite POSITIVE (NEGATIVE) Urine Bilirubin SMALL (NEGATIVE) Urine Urobilinogen 2 (0-1) mg/dL Urine Leukocytes TRACE (NEGATIVE) Urine WBC (Auto) 26-50 (0-5) /HPF Urine RBC (Auto) 11-15 (0-2) /HPF U Epithel Cells (Auto) NONE (FEW) /HPF Urine Bacteria (Auto) FEW (NEGATIVE) /HPF Urine RBC TRACE-INTACT (0-5) Cali/ul Urine Mucus (Auto) SLIGHT (NEGATIVE) /HPF Urine Glucose NEGATIVE (NEGATIVE) mg/dL Urine Opiates Level (NEGATIVE) Ur Methadone (NEGATIVE) Urine Barbiturates (NEGATIVE) Ur Phencyclidine (PCP) (NEGATIVE) Urine Amphetamine (NEGATIVE) U Benzodiazepine Level (NEGATIVE) Urine Cocaine (NEGATIVE) Urine Marijuana (THC) (NEGATIVE) Ethyl Alcohol < 10 (0-10) mg/dL 11/08/21 11/08/21 11/08/21 Range/Units 16:15 15:55 15:55 WBC 11.1 H (4.0-10.5) K/mm3 RBC 4.12 (4.1-5.6) M/mm3 Hgb 12.2 L (12.5-18.0) gm/dl Hct 37.5 L (42-50) % MCV 91.0 (78-100) fl MCH 29.6 (26-32) pg MCHC 32.5 (32-36) g/dl RDW 16.9 H (11.5-14.0) % Plt Count 284 (150-450) K/mm3 MPV 11.3 H (7.5-11.0) fl APTT 27.9 (25.1-36.5) SECONDS D-Dimer 3898 H* (215-500) ng/mL Sodium (137-145) mmol/L Potassium (3.5-5.1) mmol/L Chloride (98-107) mmol/L Carbon Dioxide (22-30) mmol/L Anion Gap (5-15) MEQ/L BUN (9-20) mg/dL Creatinine (0.66-1.25) mg/dL Estimated GFR ML/MIN Glucose (74-106) mg/dL Lactic Acid 6.1 H (0.4-2.0) Calcium (8.4-10.2) mg/dL Total Bilirubin (0.2-1.3) mg/dL AST (17-59) U/L ALT (0-50) U/L Alkaline Phosphatase (38-126) U/L Creatine Kinase (55-170) U/L Troponin I (0.000-0.034) ng/mL NT-Pro-B Natriuret Pep (0-900) pg/mL Serum Total Protein (6.3-8.2) g/dL Albumin (3.5-5.0) g/dL Urinalys Dipstick Clnc Urine Color (YELLOW) Urine Appearance (CLEAR) Urine pH (5-6) Ur Specific Bath (1.005-1.025) POC Urine Protein Conf (Negative) Urine Ketones (NEGATIVE) Urine Nitrite (NEGATIVE) Urine Bilirubin (NEGATIVE) Urine Urobilinogen (0-1) mg/dL Urine Leukocytes (NEGATIVE) Urine WBC (Auto) (0-5) /HPF Urine RBC (Auto) (0-2) /HPF U Epithel Cells (Auto) (FEW) /HPF Urine Bacteria (Auto) (NEGATIVE) /HPF Urine RBC (0-5) Cali/ul Urine Mucus (Auto) (NEGATIVE) /HPF Urine Glucose (NEGATIVE) mg/dL Urine Opiates Level (NEGATIVE) Ur Methadone (NEGATIVE) Urine Barbiturates (NEGATIVE) Ur Phencyclidine (PCP) (NEGATIVE) Urine Amphetamine (NEGATIVE) U Benzodiazepine Level (NEGATIVE) Urine Cocaine (NEGATIVE) Urine Marijuana (THC) (NEGATIVE) Ethyl Alcohol (0-10) mg/dL - Progress Progress: unchanged Discussed with : Vanessa Will see patient in: hospital (observation) - Departure Departure Disposition: Observation Clinical Impression: Atrial fibrillation, Pulmonary emboli, Altered mental status, Seizure, Alcohol withdrawal Condition: Fair Critical Care Time: No Referrals: GIANCARLO TIM MD [Primary Care Provider] - Follow up/PCP as directed
[2021-11-08 20:25] LABS: ALBUMIN 2.7 g/dL (3.5-5.0); ALKALINE PHOSPHATASE 89 U/L (38-126); ANION GAP 12.4 MEQ/L (5-15); BLOOD UREA NITROGEN 15 mg/dL (9-20); CHLORIDE 109 mmol/L (98-107); Calcium 8.2 mg/dL (8.4-10.2); Creatinine 1 0.81 mg/dL (0.66-1.25); EST GLOMERULAR FILTRATION RATE > 60.0 ML/MIN; Glucose 115 mg/dL (74-106); Potassium 4.2 mmol/L (3.5-5.1); SGOT/AST 21 U/L (17-59); SGPT/ALT 9 U/L (0-50); SODIUM 132 mmol/L (137-145)
[2021-11-08 20:32] LABS: Carbon Dioxide 14 mmol/L (22-30)
[2021-11-08 20:41] LABS: INFLUENZA A NEGATIVE (NEGATIVE); INFLUENZA B NEGATIVE (NEGATIVE); RESPIRATORY SYNCTIAL VIRUS NEGATIVE (Negative); SARS-CoV-2 Xpert Express NEGATIVE (NEGATIVE)
[2021-11-08] MEDS ORDERED: ENOXAPARIN SODIUM SQ SCH (20:45)
[2021-11-08] MEDS: Sodium Chloride 0.9% 1000 ML 1,000 ML IV SCH (22:05)
[2021-11-09 03:39] LABS: Absolute Neutrophil Ct (ANC) 4.03 (1.4-6.9); Basophil (Absolute #) 0.03 (0-0.4); Eosinophil % 0.9 % (0.00-5.0); Eosinophil (Absolute #) 0.06 (0-0.5); Hematocrit 28.4 % (42-50); Lymphocyte (Absolute #) 1.86 (1.0-4.6); Lymphocytes % 29.4 % (24.0-44.0); Mean Cell Volume 90.2 fl (78-100); Mean Corpuscular Hemoglobin 29.8 pg (26-32); Mean Corpuscular Hgb Concent. 33.1 g/dl (32-36); Mean Platelet Volume 10.2 fl (7.5-11.0); Monocyte (Absolute #) 0.35 (0.0-1.3); Monocytes % 5.5 % (0.0-12.0); Neutrophil % 63.7 % (36.0-66.0); Platelet Count 211 K/mm3 (150-450); Red Blood Count 3.15 M/mm3 (4.1-5.6); Red Cell Distribution Width 16.3 % (11.5-14.0); White Blood Count 6.3 K/mm3 (4.0-10.5)
[2021-11-09 03:52] LABS: Hemoglobin 9.4 gm/dl (12.5-18.0)
[2021-11-09 04:25] LABS: ALBUMIN 2.8 g/dL (3.5-5.0); ALKALINE PHOSPHATASE 84 U/L (38-126); ANION GAP 11.1 MEQ/L (5-15); BLOOD UREA NITROGEN 14 mg/dL (9-20); CHLORIDE 108 mmol/L (98-107); Calcium 8.6 mg/dL (8.4-10.2); Carbon Dioxide 18 mmol/L (22-30); Creatinine 1 0.83 mg/dL (0.66-1.25); EST GLOMERULAR FILTRATION RATE > 60.0 ML/MIN; Glucose 104 mg/dL (74-106); PREALBUMIN 7.83 mg/dL (17.6-36.0); Potassium 4.6 mmol/L (3.5-5.1); SGOT/AST 24 U/L (17-59); SGPT/ALT 9 U/L (0-50); SODIUM 133 mmol/L (137-145); Total Protein 5.9 g/dL (6.3-8.2)
[2021-11-09 05:52] LABS: Lymphocytes 43 % (24-44); Monocyte 4 % (0.0-12.0); Neutrophils 53 % (36.-66.); Platelet Estimate NORMAL (NORMAL); Total Cells Counted 100
[2021-11-09] MEDS: Sodium Chloride 0.9% 1000 ML 1,000 ML IV SCH ×2 (07:04→17:13)
--- NOTE | 2021-11-09 08:56 | XRAY ---
Indication: CVA. Elevated d-dimer. Multiple contiguous images obtained through the chest using 100 cc Isovue 370 contrast and PE protocol. Comparison: None Beam artifact from patient's arms. There is good opacification of the pulmonary arteries to include the lobar and segmental branches. Distal right main pulmonary artery demonstrates nonoccluding pulmonary emboli slightly extending into the right lower lobe branch. Lesser nonoccluding pulmonary emboli seen in the left lower lobe branch. No distal pulmonary infarct. Heart not enlarged. Aorta is mildly arteriosclerotic with 1.7 cm aortic arch saccular aneurysm. No pathologic mediastinal/hilar lymphadenopathy. Lungs demonstrate diffuse pulmonary emphysema and scattered fibrosis/scarring. Posterior right lower lobe demonstrates moderate infiltrate/ectasis with tiny effusion. Bony thorax demonstrates multiple old united and ununited right rib fractures. Limited upper abdomen unremarkable. Impression: 1. Nonoccluding bilateral pulmonary emboli as detailed. 2. Posterior right lower lobe infiltrate/atelectasis with tiny effusion. 3. Scattered arteriosclerotic disease with 1.7 cm aortic arch aneurysm. 4. Pulmonary emphysema.
[2021-11-09] MEDS ORDERED: ENOXAPARIN SODIUM SQ SCH (09:00)
[2021-11-09] MEDS ORDERED: LIORESAL 10 MG PO PRN (09:27)
[2021-11-09] MEDS: Flomax 0.4 MG PO SCH (09:55)
[2021-11-09] MEDS: Cymbalta 30 MG Capsule PO SCH (09:56)
[2021-11-09] MEDS: Protonix 40MG Tablet PO SCH (09:56)
[2021-11-09] MEDS: Vitamin B-12 500 MCG PO SCH (09:56)
[2021-11-09] MEDS: ENOXAPARIN SODIUM SQ SCH ×2 (09:56→21:04)
[2021-11-09] MEDS: ECOTRIN 81 MG PO SCH (09:56)
[2021-11-09] MEDS: ZOCOR 20MG PO SCH (09:56)
[2021-11-09] MEDS ORDERED: NON-FORMULARY ITEM (Cyanocobalamin (Vitamin B-12) [Vitamin B-12] 1,000 MCG Capsule) PO SCH (10:00)
[2021-11-09] MEDS ORDERED: NON-FORMULARY ITEM (Atorvastatin Calcium [Lipitor] 80 MG Tablet) PO SCH (10:00)
[2021-11-09] MEDS ORDERED: NON-FORMULARY ITEM (Mirtazapine [Mirtazapine] 7.5 MG Tablet) PO SCH (10:00)
[2021-11-09] MEDS: MIRTAZAPINE PO SCH (10:26)
[2021-11-09] MEDS: LOPID 600 MG PO SCH ×2 (10:26→21:04)
[2021-11-09] MEDS: ROCEPHIN 1 Gm-D5w 50 ml Bag** 1 G/50 ML IVPB IV SCH (10:27)
--- NOTE | 2021-11-09 13:53 | XRAY ---
Indication: Acute mental status change. Weakness. History stroke. Sagittal, coronal, and axial MRI brain performed without contrast using T1, T2, FLAIR, diffusion, and ADC sequences. Comparison: February 12, 2021. Age-appropriate atrophy with new minimal right periventricular degenerative micro-ischemia signal. Grossly stable large old left frontoparietal infarct with underlying encephalomalacia and gliosis. Brainstem demonstrates minimal progressive worsening degenerative micro-ischemia signal. Diffusion images are negative for restricted signal. No acute intracranial hemorrhage, hydrocephalus, or mass effect. Fourth ventricle is midline. 7/8 cranial nerve complex bilaterally symmetric. Continued occluded left internal carotid artery. Normal flow void signal within the remaining major intracerebral circulation. Normal appearing craniocervical junction and sella turcica. Mild mucosal thickening left maxillary sinus. Impression: 1. Grossly stable large old left frontoparietal infarct and left internal carotid artery occlusion. 2. No acute intracranial abnormalities or evidence for evolving stroke. 3. Atrophy with progressive degenerative micro-ischemia. 4. Incidental paranasal sinus disease.
[2021-11-10] MEDS: Sodium Chloride 0.9% 1000 ML 1,000 ML IV SCH ×3 (02:14→23:30)
[2021-11-10 05:03] LABS: Absolute Neutrophil Ct (ANC) 2.66 (1.4-6.9); Basophil (Absolute #) 0.06 (0-0.4); Eosinophil % 0.9 % (0.00-5.0); Eosinophil (Absolute #) 0.04 (0-0.5); Hematocrit 26.6 % (42-50); Hemoglobin 8.9 gm/dl (12.5-18.0); Lymphocyte (Absolute #) 1.26 (1.0-4.6); Lymphocytes % 29.6 % (24.0-44.0); Mean Corpuscular Hemoglobin 29.8 pg (26-32); Mean Corpuscular Hgb Concent. 33.5 g/dl (32-36); Mean Platelet Volume 10.1 fl (7.5-11.0); Monocyte (Absolute #) 0.23 (0.0-1.3); Monocytes % 5.4 % (0.0-12.0); Neutrophil % 62.7 % (36.0-66.0); Platelet Count 198 K/mm3 (150-450); Red Blood Count 2.99 M/mm3 (4.1-5.6); Red Cell Distribution Width 16.2 % (11.5-14.0); White Blood Count 4.3 K/mm3 (4.0-10.5)
[2021-11-10 05:28] LABS: ALBUMIN 2.7 g/dL (3.5-5.0); ALKALINE PHOSPHATASE 86 U/L (38-126); ANION GAP 9.5 MEQ/L (5-15); BLOOD UREA NITROGEN 10 mg/dL (9-20); CHLORIDE 108 mmol/L (98-107); Calcium 8.3 mg/dL (8.4-10.2); Carbon Dioxide 17 mmol/L (22-30); Creatinine 1 0.75 mg/dL (0.66-1.25); EST GLOMERULAR FILTRATION RATE > 60.0 ML/MIN; Glucose 91 mg/dL (74-106); Potassium 3.6 mmol/L (3.5-5.1); SGOT/AST 24 U/L (17-59); SGPT/ALT 9 U/L (0-50); SODIUM 131 mmol/L (137-145); Total Protein 5.9 g/dL (6.3-8.2)
[2021-11-10] MEDS: Vitamin B-12 500 MCG PO SCH (09:08)
[2021-11-10] MEDS: Cymbalta 30 MG Capsule PO SCH (09:08)
[2021-11-10] MEDS: Flomax 0.4 MG PO SCH (09:08)
[2021-11-10] MEDS: MIRTAZAPINE PO SCH (09:08)
[2021-11-10] MEDS: LOPID 600 MG PO SCH (09:08)
[2021-11-10] MEDS: Protonix 40MG Tablet PO SCH (09:08)
[2021-11-10] MEDS: ZOCOR 20MG PO SCH (09:08)
[2021-11-10] MEDS: ECOTRIN 81 MG PO SCH (09:08)
[2021-11-10] MEDS: ROCEPHIN 1 Gm-D5w 50 ml Bag** 1 G/50 ML IVPB IV SCH (09:11)
[2021-11-10] MEDS: ENOXAPARIN SODIUM SQ SCH (09:12)
[2021-11-10] MEDS: Toprol Xl 50 MG PO SCH (10:48)
[2021-11-10] MEDS: ELIQUIS 2.5 MG TABLET PO SCH (21:25)
[2021-11-11 05:11] LABS: Hematocrit 27.4 % (42-50); Hemoglobin 8.9 gm/dl (12.5-18.0); Mean Cell Volume 91.3 fl (78-100); Mean Corpuscular Hemoglobin 29.7 pg (26-32); Mean Corpuscular Hgb Concent. 32.5 g/dl (32-36); Mean Platelet Volume 10.2 fl (7.5-11.0); Platelet Count 201 K/mm3 (150-450); Red Cell Distribution Width 16.9 % (11.5-14.0); White Blood Count 4.2 K/mm3 (4.0-10.5)
[2021-11-11 05:34] LABS: ALBUMIN 2.6 g/dL (3.5-5.0); ALKALINE PHOSPHATASE 78 U/L (38-126); ANION GAP 10.5 MEQ/L (5-15); BLOOD UREA NITROGEN 7 mg/dL (9-20); CHLORIDE 104 mmol/L (98-107); Calcium 8.1 mg/dL (8.4-10.2); Carbon Dioxide 19 mmol/L (22-30); Creatinine 1 0.73 mg/dL (0.66-1.25); EST GLOMERULAR FILTRATION RATE > 60.0 ML/MIN; Glucose 110 mg/dL (74-106); Potassium 3.4 mmol/L (3.5-5.1); SGOT/AST 21 U/L (17-59); SGPT/ALT 10 U/L (0-50); SODIUM 130 mmol/L (137-145); Total Protein 5.7 g/dL (6.3-8.2)
[2021-11-11 05:43] LABS: Iron 78 ug/dL (49-181); Iron Saturation 40 % (20-39); TIBC 196 ug/dL (261-497)
--- NOTE | 2021-11-11 09:35 | PCM.HP ---
History of Present Illness - Chief Complaint Chief Complaint: Altered Mental Status, UTI Date: 11/09/21 History of Present Illness: is a 61 year old male. Pt. was brought to ER for increased weakness and decreased alertness, noted by family when EMS called. Upon arrival to ER pt. evaluated and no specific etiology found, so patient admitted for possible infectious etiology and further evaluation. - Review of Systems Constitutional: Lethargy, No Fever, No Chills Eyes: No Symptoms Ears, Nose, & Throat: No Symptoms Respiratory: No Cough, No Short Of Breath Cardiac: No Chest Pain, No Edema, No Syncope Abdominal/Gastrointestinal: No Abdominal Pain, No Nausea, No Vomiting, No Diarrhea Genitourinary Symptoms: No Dysuria Musculoskeletal: No Back Pain, No Neck Pain Skin: No Rash Neurological: No Dizziness, No Focal Weakness, No Sensory Changes Psychological: No Symptoms Endocrine: No Symptoms Hematologic/Lymphatic: No Symptoms Immunological/Allergic: No Symptoms Medications & Allergies Home Medications: Home Medication List Atorvastatin Calcium [Lipitor] 80 mg PO DAILY 08/31/17 [History Confirmed 11/09/21] Tamsulosin HCl 0.4 mg [Flomax 0.4 MG] 0.4 mg PO DAILY 08/31/17 [History Confirmed 11/09/21] Baclofen 10 mg [Lioresal 10 mg] 10 mg PO TIDPRN PRN 03/30/19 [History Confirmed 11/09/21] Apixaban [Eliquis] 5 mg PO BID #60 tablet 01/25/21 [Rx Confirmed 11/09/21] Aspirin EC 81 mg [Ecotrin 81 mg] 81 mg PO DAILY #30 tablet 01/25/21 [Rx Confirmed 11/09/21] Metoprolol Succinate 50 mg [Toprol Xl 50 MG] 50 mg PO DAILY #30 tablet.sa 01/25/21 [Rx Confirmed 11/09/21] Cyanocobalamin (Vitamin B-12) [Vitamin B-12] 1,000 mcg PO DAILY 03/17/21 [History Confirmed 11/09/21] Duloxetine HCl 30 mg [Cymbalta 30 MG Capsule] 30 mg PO DAILY 03/17/21 [History Confirmed 11/09/21] Gemfibrozil 600 mg [Lopid 600 mg] 600 mg PO BID 11/09/21 [History Confirmed 11/09/21] Mirtazapine 7.5 mg PO DAILY 11/09/21 [History Confirmed 11/09/21] Omeprazole 20 mg PO DAILY 11/09/21 [History Confirmed 11/09/21] PANTOPRAZOLE 40 mg Tablet [Protonix 40MG Tablet] 40 mg PO DAILY 11/09/21 [History Confirmed 11/09/21] Allergies/Adverse Reactions: Allergies Allergy/AdvReac Type Severity Reaction Status Date / Time No Known Drug Allergies Allergy Verified 11/08/21 22:14 - Past Medical History Past Medical History: Yes Neurological History: Stroke ENT History: No Pertinent History Cardiac History: High Cholesterol, Hypertension Respiratory History: No Pertinent History Endocrine Medical History: No Pertinent History Musculoskelatal History: No Pertinent History GI Medical History: Gallbladder Disease History: No Pertinent History Pyscho-Social History: No Pertinent History Male Reproductive Disorders: Prostate Problems Comment: Kidney stones. PATIENT POOR HISTORIAN. - Past Surgical History Past Surgical History: Yes Neuro Surgical History: No Pertinent History Cardiac History: No Pertinent History Respiratory Surgery: No Pertinent History GI Surgical History: No Pertinent History Genitourinary Surgical Hx: No Pertinent History Musculskeletal Surgical Hx: Orthopedic Surgery Male Surgical History: No Pertinent History Other Surgical History: Colonoscopy - Social History Smoking Status: Current every day smoker How long have you smoked: 40 years Exposure to second hand smoke: No (unknown) Alcohol: Daily Drug Use: marijuana - Physical Exam Vital Signs: Vital Signs - 24 hr Temp Pulse Resp BP BP Pulse Ox 11/11/21 07:28 98.8 F 78 22 89/60 11/11/21 04:00 97.6 F 66 22 92/58 98 11/11/21 00:00 98.0 F 66 20 95/66 99 11/10/21 20:00 97.9 F 76 20 92/68 99 11/10/21 15:43 99 F 88 18 88/62 95 11/10/21 12:00 98.8 F 85 10 L 112/75 97 General Appearance: no apparent distress, alert Neurologic Exam: alert, oriented x 3, cooperative, normal mood/affect, nml cerebellar function, nml station & gait, sensation nml, No motor deficits Eye Exam: PERRL/EOMI, eyes nml inspection Ears, Nose, Throat Exam: normal ENT inspection, TMs normal, pharynx normal, moist mucous membranes Neck Exam: normal inspection, non-tender, supple, full range of motion Respiratory Exam: normal breath sounds, lungs clear, No respiratory distress Cardiovascular Exam: normal heart sounds, normal peripheral pulses, irregular (rate controlled) Gastrointestinal/Abdomen Exam: soft, normal bowel sounds, No tenderness, No mass Back Exam: normal inspection, normal range of motion, No CVA tenderness, No vertebral tenderness Extremity Exam: pelvis stable, paralysis (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) Skin Exam: normal color, warm, dry, No rash Wound Assessment: Skin/Wound Assessment Wound/Incision Assessment Start: 11/08/21 23:28 Text: Status: Active Freq: Q6H Protocol: Document 11/11/21 07:24 ZINA (Rec: 11/11/21 07:24 ZINA [id number]) Wound/Incision Assessment Left [place] Wound Assessment Shift Assessment Drainage Odor None/Absent General Appearance Open to air,Clean/Dry Wound Bed Greatest Portion Pale [place] Wound Bed Lesser Portion Pale [place] Surrounding Tissue Edematous Comment leg appears yellow or jaundice surrounding multiple small ulcerated areas Anterior Right Knee Wound Assessment Shift Assessment Wound Type scab Wound Stage Non Pressure Wound General Appearance Open to air,Clean/Dry Length (cm) (cm) 3 Width (cm) (cm) 1.5 Wound Bed Greatest Portion Black (Eschar) Wound Bed Lesser Portion Pale [place] Surrounding Tissue [place] Posterior Left Hand Wound Assessment Shift Assessment Wound Type Skin Tear Wound Stage Non Pressure Wound Dressing Status Dry & Intact Drainage Amount None General Appearance Clean/Dry Wound Bed Greatest Portion Red (Granulation) Wound Bed Lesser Portion Red (Granulation) Surrounding Tissue Purple Comment xeroform gauze, stretch gauze Right Elbow Wound Assessment Shift Assessment Wound Type circular scab Drainage Amount None General Appearance Open to air,Clean/Dry Length (cm) (cm) 1 Width (cm) (cm) 0.5 Depth (cm) (cm) 0.1 Surrounding Tissue Purple Posterior Right Upper Arm Wound Assessment Shift Assessment Wound Type Skin Tear Wound Stage Non Pressure Wound Dressing Status Dry & Intact Drainage Amount None General Appearance Clean/Dry Length (cm) (cm) 5 Width (cm) (cm) 2.5 Depth (cm) (cm) 0 Wound Bed Greatest Portion [place] Wound Bed Lesser Portion Pale [place] Surrounding Tissue Purple Comment xerophorm gauze and stretch gauze Wound Photo Photo Taken Yes Comment: pictures taken upon admission Lymphatic Exam: No adenopathy Results - Labs Lab/Micro Results: Lab Results-Last 24 Hours 11/11/21 11/11/21 11/11/21 Range/Units 05:06 05:06 05:06 WBC 4.2 (4.0-10.5) K/mm3 RBC 3.00 L (4.1-5.6) M/mm3 Hgb 8.9 L (12.5-18.0) gm/dl Hct 27.4 L (42-50) % MCV 91.3 (78-100) fl MCH 29.7 (26-32) pg MCHC 32.5 (32-36) g/dl RDW 16.9 H (11.5-14.0) % Plt Count 201 (150-450) K/mm3 MPV 10.2 (7.5-11.0) fl Sodium 130 L (137-145) mmol/L Potassium 3.4 L (3.5-5.1) mmol/L Chloride 104 (98-107) mmol/L Carbon Dioxide 19 L (22-30) mmol/L Anion Gap 10.5 (5-15) MEQ/L BUN 7 L (9-20) mg/dL Creatinine 0.73 (0.66-1.25) mg/dL Estimated GFR > 60.0 ML/MIN Glucose 110 H (74-106) mg/dL Calcium 8.1 L (8.4-10.2) mg/dL Iron 78 (49-181) ug/dL TIBC 196 L (261-497) ug/dL Iron Saturation 40 H (20-39) % Total Bilirubin 1.50 H (0.2-1.3) mg/dL AST 21 (17-59) U/L ALT 10 (0-50) U/L Alkaline Phosphatase 78 (38-126) U/L Serum Total Protein 5.7 L (6.3-8.2) g/dL Albumin 2.6 L (3.5-5.0) g/dL Microbiology 11/08/21 16:35 Urine Culture - Final Clean Catch Midstream Enterococcus Faecalis - Radiology Impressions Radiology Exams & Impressions: Radiology Procedures Category Date Time Status MRI BRAIN W/O CONTRAST [MRI] Routine Exams 11/09/21 09:48 Completed Assessment/Plan (1) UTI (urinary tract infection) Current Visit: Yes Status: Acute Assessment & Plan: IV antibiotics Code(s): N39.0 - URINARY TRACT INFECTION, SITE NOT SPECIFIED (2) AMS (altered mental status) Current Visit: Yes Status: Acute Assessment & Plan: MRI of brain and EEG to rule out seizure/post-ictal episode Code(s): R41.82 - ALTERED MENTAL STATUS, UNSPECIFIED (3) Atrial fibrillation Current Visit: Yes Status: Acute Assessment & Plan: continue beta bronson Code(s): I48.91 - UNSPECIFIED ATRIAL FIBRILLATION (4) Acute kidney injury Current Visit: Yes Status: Acute Assessment & Plan: iv fluids Code(s): N17.9 - ACUTE KIDNEY FAILURE, UNSPECIFIED
[2021-11-11] MEDS: Vitamin B-12 500 MCG PO SCH (09:45)
[2021-11-11] MEDS: Toprol Xl 50 MG PO SCH (09:45)
[2021-11-11] MEDS: Cymbalta 30 MG Capsule PO SCH (09:45)
[2021-11-11] MEDS: ELIQUIS 2.5 MG TABLET PO SCH ×2 (09:45→21:33)
--- NOTE | 2021-11-11 09:45 | PCM.DS ---
Discharge Summary Date of Admission: 11/08/21 21:32 Date of Discharge: 11/11/2021 Admitting Physician: GIANCARLO TIM Consults: Consults on Case 11/10/21 09:50 Consult Cardiology ROUTINE Primary Care Provider: GIANCARLO TIM Allergies Allergies No Known Drug Allergies Allergy (Verified 11/08/21 22:14) Hospital Summary - Hospital Course Hospital Course: Pt. admitted for further evaulation of Mental status changes/lethargy. Pt. was started on IV antibiotics. Pt. mental status improved some the next day and by day 3 was back at baseline with urine culture results indicating infection. pt. with history of CVA agreed to [facility] for strengthening and continued monitoring, and taking of po antibiotic based upon culture results. - Vitals & Intake/Output Vital Signs: Vital Signs Temperature 98.8 F 11/11/21 07:28 Pulse Rate 78 11/11/21 07:28 Respiratory Rate 11/11/21 07:28 Blood Pressure 89/60 11/11/21 07:28 O2 Sat by Pulse Oximetry 98 11/11/21 04:00 Intake & Output: Intake & Output 11/08/21 11/09/21 11/10/21 11/11/21 11:59 11:59 11:59 11:59 Intake Total 1190 2723 4836 Output Total 900 1225 3050 Balance 290 1498 1786 Weight 92.4 kg 98 kg 98 kg - Lab Result Diagrams: 11/11/21 05:06 11/11/21 05:06 Lab Results-Last 24 Hrs: Lab Results-Last 24 Hours 11/11/21 11/11/21 11/11/21 Range/Units 05:06 05:06 05:06 WBC 4.2 (4.0-10.5) K/mm3 RBC 3.00 L (4.1-5.6) M/mm3 Hgb 8.9 L (12.5-18.0) gm/dl Hct 27.4 L (42-50) % MCV 91.3 (78-100) fl MCH 29.7 (26-32) pg MCHC 32.5 (32-36) g/dl RDW 16.9 H (11.5-14.0) % Plt Count 201 (150-450) K/mm3 MPV 10.2 (7.5-11.0) fl Sodium 130 L (137-145) mmol/L Potassium 3.4 L (3.5-5.1) mmol/L Chloride 104 (98-107) mmol/L Carbon Dioxide 19 L (22-30) mmol/L Anion Gap 10.5 (5-15) MEQ/L BUN 7 L (9-20) mg/dL Creatinine 0.73 (0.66-1.25) mg/dL Estimated GFR > 60.0 ML/MIN Glucose 110 H (74-106) mg/dL Calcium 8.1 L (8.4-10.2) mg/dL Iron 78 (49-181) ug/dL TIBC 196 L (261-497) ug/dL Iron Saturation 40 H (20-39) % Total Bilirubin 1.50 H (0.2-1.3) mg/dL AST 21 (17-59) U/L ALT 10 (0-50) U/L Alkaline Phosphatase 78 (38-126) U/L Serum Total Protein 5.7 L (6.3-8.2) g/dL Albumin 2.6 L (3.5-5.0) g/dL Micro Results-Entire Visit: Microbiology 11/08/21 16:35 Urine Culture - Final Clean Catch Midstream Enterococcus Faecalis - Radiology Exams Ordered Rad Exams-Entire Visit: Radiology Procedures Category Date Time Status MRI BRAIN W/O CONTRAST [MRI] Routine Exams 11/09/21 09:48 Completed - Procedures and Test Procedures and Tests throughout Hospitalization: Therapy Orders & Screens 11/08/21 22:43 Oxygen Nasal Cannula 2 lpm Comment: Diagnosis: Altered Mental Status 11/09/21 09:00 EEG 41-60 Minutes (Normal) ONCE Comment: Reason For Exam: Diagnosis: Altered Mental Status 11/10/21 10:13 PT Eval & Treat (MD Order) ONCE Reason for Eval:: WEAKNESS- NEEDING SNF PLACEMENT Diagnosis: Altered Mental Status Discharge Exam General Appearance: no apparent distress, alert Neurologic Exam: alert, oriented x 3, cooperative, normal mood/affect, nml cerebellar function, sensation nml, No motor deficits Eye Exam: PERRL, EOMI, eyes nml inspection Ears, Nose, Throat Exam: normal ENT inspection, pharynx normal, moist mucous membranes, other (pressured speech, chronic for the patient) Neck Exam: normal inspection, non-tender, supple, full range of motion Respiratory Exam: normal breath sounds, lungs clear, No respiratory distress Cardiovascular Exam: regular rate/rhythm, normal heart sounds Gastrointestinal/Abdomen Exam: soft, No tenderness, No mass Male Genitalia Exam: deferred Rectal Exam: deferred Back Exam: normal inspection, normal range of motion, No CVA tenderness, No vertebral tenderness Extremity Exam: normal inspection, paralysis (of right side) Skin Exam: normal color, warm, dry Wound Assessment: Skin/Wound Assessment Wound/Incision Assessment Start: 11/08/21 23:28 Text: Status: Active Freq: Q6H Protocol: Document 11/11/21 07:24 ZINA (Rec: 11/11/21 07:24 ZINA [id number]) Wound/Incision Assessment Left [place] Wound Assessment Shift Assessment Drainage Odor None/Absent General Appearance Open to air,Clean/Dry Wound Bed Greatest Portion Pale [place] Wound Bed Lesser Portion Pale [place] Surrounding Tissue Edematous Comment leg appears yellow or jaundice surrounding multiple small ulcerated areas Anterior Right Knee Wound Assessment Shift Assessment Wound Type scab Wound Stage Non Pressure Wound General Appearance Open to air,Clean/Dry Length (cm) (cm) 3 Width (cm) (cm) 1.5 Wound Bed Greatest Portion Black (Eschar) Wound Bed Lesser Portion Pale [place] Surrounding Tissue [place] Posterior Left Hand Wound Assessment Shift Assessment Wound Type Skin Tear Wound Stage Non Pressure Wound Dressing Status Dry & Intact Drainage Amount None General Appearance Clean/Dry Wound Bed Greatest Portion Red (Granulation) Wound Bed Lesser Portion Red (Granulation) Surrounding Tissue Purple Comment xeroform gauze, stretch gauze Right Elbow Wound Assessment Shift Assessment Wound Type circular scab Drainage Amount None General Appearance Open to air,Clean/Dry Length (cm) (cm) 1 Width (cm) (cm) 0.5 Depth (cm) (cm) 0.1 Surrounding Tissue Purple Posterior Right Upper Arm Wound Assessment Shift Assessment Wound Type Skin Tear Wound Stage Non Pressure Wound Dressing Status Dry & Intact Drainage Amount None General Appearance Clean/Dry Length (cm) (cm) 5 Width (cm) (cm) 2.5 Depth (cm) (cm) 0 Wound Bed Greatest Portion Pale [place] Wound Bed Lesser Portion Pale [place] Surrounding Tissue Purple Comment xerophorm gauze and stretch gauze Wound Photo Photo Taken Yes Comment: pictures taken upon admission Final Diagnosis/Problem List - Final Discharge Diagnosis/Problem (1) UTI (urinary tract infection) Current Visit: Yes Status: Acute Assessment & Plan: d/c on po levoquin Code(s): N39.0 - URINARY TRACT INFECTION, SITE NOT SPECIFIED (2) AMS (altered mental status) Current Visit: Yes Status: Acute Assessment & Plan: resolved with iv fluids and iv abx. Pt. eating and drinking well, back to baseline Code(s): R41.82 - ALTERED MENTAL STATUS, UNSPECIFIED (3) Atrial fibrillation Current Visit: Yes Status: Acute Code(s): I48.91 - UNSPECIFIED ATRIAL FIBRILLATION (4) Acute kidney injury Current Visit: Yes Status: Acute Code(s): N17.9 - ACUTE KIDNEY FAILURE, UNSPECIFIED - Discharge Discharge Date: 11/11/21 (rehabilitation) Disposition: DC TO [facility] Condition: Fair Prescriptions: No Action Tamsulosin HCl 0.4 mg [Flomax 0.4 MG] 0.4 mg PO DAILY Atorvastatin Calcium [Lipitor] 80 mg PO DAILY Baclofen 10 mg [Lioresal 10 mg] 10 mg PO TIDPRN PRN PRN Reason: Muscle Spasms Aspirin EC 81 mg [Ecotrin 81 mg] 81 mg PO DAILY #30 tablet Apixaban [Eliquis] 5 mg PO BID #60 tablet Metoprolol Succinate 50 mg [Toprol Xl 50 MG] 50 mg PO DAILY #30 tablet.sa Cyanocobalamin (Vitamin B-12) [Vitamin B-12] 1,000 mcg PO DAILY Duloxetine HCl 30 mg [Cymbalta 30 MG Capsule] 30 mg PO DAILY Mirtazapine 7.5 mg PO DAILY Gemfibrozil 600 mg [Lopid 600 mg] 600 mg PO BID Omeprazole 20 mg PO DAILY PANTOPRAZOLE 40 mg Tablet [Protonix 40MG Tablet] 40 mg PO DAILY Additional Instructions: CONTINUE PO LEVOQUIN FOR TOTAL OF 10 DAYS. Follow up with: GIANCARLO TIM MD [Primary Care Provider] - EVELINE STEEL NP [Family Provider] -
[2021-11-11] MEDS: Protonix 40MG Tablet PO SCH (09:46)
[2021-11-11] MEDS: Flomax 0.4 MG PO SCH (09:46)
[2021-11-11] MEDS: MIRTAZAPINE PO SCH (09:46)
[2021-11-11] MEDS: ZOCOR 20MG PO SCH (09:46)
[2021-11-11] MEDS: Levofloxacin 500 MG Tablet PO SCH (11:12)
[2021-11-12] MEDS: Cymbalta 30 MG Capsule PO SCH (10:09)
[2021-11-12] MEDS: Vitamin B-12 500 MCG PO SCH (10:09)
[2021-11-12] MEDS: Levofloxacin 500 MG Tablet PO SCH (10:09)
[2021-11-12] MEDS: ELIQUIS 2.5 MG TABLET PO SCH ×2 (10:09→21:38)
[2021-11-12] MEDS: Protonix 40MG Tablet PO SCH (10:10)
[2021-11-12] MEDS: Toprol Xl 50 MG PO SCH (10:10)
[2021-11-12] MEDS: Flomax 0.4 MG PO SCH (10:10)
[2021-11-12] MEDS: ZOCOR 20MG PO SCH (10:10)
[2021-11-12] MEDS: MIRTAZAPINE PO SCH (12:04)
[2021-11-13] MEDS: Levofloxacin 500 MG Tablet PO SCH (09:06)
[2021-11-13] MEDS: ELIQUIS 2.5 MG TABLET PO SCH ×2 (09:06→21:33)
[2021-11-13] MEDS: Toprol Xl 50 MG PO SCH (09:06)
[2021-11-13] MEDS: Vitamin B-12 500 MCG PO SCH (09:06)
[2021-11-13] MEDS: Cymbalta 30 MG Capsule PO SCH (09:06)
[2021-11-13] MEDS: Flomax 0.4 MG PO SCH (09:06)
[2021-11-13] MEDS: ZOCOR 20MG PO SCH (09:06)
[2021-11-13] MEDS: MIRTAZAPINE PO SCH (09:08)
[2021-11-13] MEDS: Protonix 40MG Tablet PO SCH (09:10)
[2021-11-14] MEDS: Flomax 0.4 MG PO SCH (10:34)
[2021-11-14] MEDS: ZOCOR 20MG PO SCH (10:34)
[2021-11-14] MEDS: Protonix 40MG Tablet PO SCH (10:36)
[2021-11-14] MEDS: Vitamin B-12 500 MCG PO SCH (10:37)
[2021-11-14] MEDS: Levofloxacin 500 MG Tablet PO SCH (10:37)
[2021-11-14] MEDS: ELIQUIS 2.5 MG TABLET PO SCH ×2 (10:37→21:25)
[2021-11-14] MEDS: Cymbalta 30 MG Capsule PO SCH (10:38)
[2021-11-14] MEDS: Toprol Xl 50 MG PO SCH (10:38)
[2021-11-14] MEDS: MIRTAZAPINE PO SCH (10:39)
[2021-11-15] MEDS: Vitamin B-12 500 MCG PO SCH (09:07)
[2021-11-15] MEDS: ZOCOR 20MG PO SCH (09:07)
[2021-11-15] MEDS: Levofloxacin 500 MG Tablet PO SCH (09:07)
[2021-11-15] MEDS: Cymbalta 30 MG Capsule PO SCH (09:07)
[2021-11-15] MEDS: ELIQUIS 2.5 MG TABLET PO SCH (09:07)
[2021-11-15] MEDS: MIRTAZAPINE PO SCH (09:08)
[2021-11-15] MEDS: Flomax 0.4 MG PO SCH (09:08)
[2021-11-15] MEDS: Protonix 40MG Tablet PO SCH (09:08)
[2021-11-15] MEDS: Toprol Xl 50 MG PO SCH (09:08)
[2021-11-15 11:52] VITALS: BP 101/79; PULSE 92; O2SAT 96
--- NOTE | 2021-11-15 13:15 | PCM.NOTE ---
Date and Time: 11/15/21 1309 Subjective Assessment: Pt has no complaints. Ate lunch fine. - Review of Systems Constitutional: No Fever Abdominal/Gastrointestinal: No Vomiting Objective Exam General Appearance: no apparent distress, alert Neurologic Exam: oriented x 3, cooperative Skin Exam: warm, dry, No rash Wound Assessment: Skin/Wound Assessment Wound/Incision Assessment Start: 11/08/21 23:28 Text: Status: Active Freq: Q6H Protocol: Document 11/15/21 07:08 ZINA (Rec: 11/15/21 07:08 ZINA [id number]) Wound/Incision Assessment Left [place] Wound Assessment Shift Assessment Drainage Odor None/Absent General Appearance Open to air,Clean/Dry Wound Bed Greatest Portion Pale [place] Wound Bed Lesser Portion Pale [place] Surrounding Tissue Edematous Anterior Right Knee Wound Assessment Shift Assessment Wound Type scab Wound Stage Non Pressure Wound General Appearance Open to air,Clean/Dry Length (cm) (cm) 3 Width (cm) (cm) 1.5 Wound Bed Greatest Portion Black (Eschar) Wound Bed Lesser Portion Pale [place] Surrounding Tissue [place] Posterior Left Hand Wound Assessment Shift Assessment Wound Type Skin Tear Wound Stage Non Pressure Wound Drainage Amount None General Appearance Clean/Dry Wound Bed Greatest Portion Red (Granulation) Wound Bed Lesser Portion Red (Granulation) Surrounding Tissue Purple Right Elbow Wound Assessment Shift Assessment Wound Type circular scab Drainage Amount None General Appearance Open to air,Clean/Dry Length (cm) (cm) 1 Width (cm) (cm) 0.5 Depth (cm) (cm) 0.1 Surrounding Tissue Purple Posterior Right Upper Arm Wound Assessment Shift Assessment Wound Type Skin Tear Wound Stage Non Pressure Wound Drainage Amount None General Appearance Clean/Dry Length (cm) (cm) 5 Width (cm) (cm) 2.5 Depth (cm) (cm) 0 Wound Bed Greatest Portion Pale [place] Wound Bed Lesser Portion Pale [place] Surrounding Tissue Purple Wound Photo Photo Taken No Comment: pictures taken upon admission Eye Exam: eyes nml inspection Ears, Nose, Throat Exam: moist mucous membranes Neck Exam: normal inspection Respiratory Exam: normal breath sounds, lungs clear, No crackles/rales, No rhonchi, No wheezing Cardiovascular Exam: regular rate/rhythm, normal heart sounds, No murmur Gastrointestinal/Abdomen Exam: soft, normal bowel sounds, No tenderness, No distention, No mass, No guarding, No rebound Extremity Exam: No pedal edema, No swelling Back Exam: normal inspection, No CVA tenderness, No rash OBJECTIVE DATA Vital Signs: Vital Signs - 24 hr Temp Pulse Resp BP Pulse Ox 11/15/21 11:51 98.1 F 92 H 16 101/79 96 11/15/21 07:54 98.1 F 82 16 96/69 94 L 11/15/21 04:00 97.5 F 80 20 78/52 100 11/14/21 23:46 97.3 F 76 18 102/65 99 11/14/21 19:17 97.3 F 78 18 90/65 98 11/14/21 16:00 97.9 F 78 16 88/58 92 L Pain Assessment - Last Documented Pain Intensity 0 Intake and Output: Intake & Output 11/13/21 11/14/21 11/15/21 11/16/21 11:59 11:59 11:59 11:59 Intake Total 1456 1035 1320 Balance 1456 1035 1320 Weight 99.2 kg 100.4 kg 100.4 kg Multi-Disciplinary Progress Notes: Multi-Disciplinary Progress Notes 11/15/21 11:41 Physical Therapy Note by [id number] PT. SEEN BY P.T. THIS A.M. REPORTS C/O R SHOULDER PN D/T HEMIPLEGIC SHOULDER WHICH IS CHRONIC. PT. IN BEDSIDE CHAIR UPON P.T. ARRIVAL TO ROOM. NSG REPORTS BED MOBILITY IMPROVED. PT. RECEIVED R LE AAROM HIP, KNEE, ANKLE W/ NOTED INCREASED EXTENSOR SPASTICITY THROUGHOUT R LE.. PT. PERFORMED L LE EX'S OF RECLINED HEELS SLIDES, ABD SLIDES, ANKLE PUMPS, SLRS. PT. REPORTS HE DOES NOT HAVE AN AFO AT HOME, BUT DID AT ONE TIME. PT. STATES HE HAD BEEN ABLE TO TRANSFER HIMSELF TO RECLINER AND POWER CHAIR WELL [employer] UNTIL ~ 1 WK AGO. REPORTS HE USED A SW TO ASSIST W/ MOBILITY DESPITE MIN-NO DAYCARE PROVIDER IN R HAND. PT. AGREEABLE TO WORK ON STANDING W/ HEMIWALKER. PT. ABLE TO SCOOT TO EDGE OF SEAT W/ CGA-SBA. ATTEMPTED X 3 TO PERFORM SIT TO STAND W/ MAX ASSIST X 1 AND HAD TO ASK NSG STAFF FOR MORE ASSISTANCE. PT. PERFORMED SIT TO STAND W/ MOD ASISST X 2 AND WAS ABLE TO GRASP MICK-WALKER W/ L UE. PERFORMED SOME LATERAL WEIGHT SHIFTS W/ HEMIWALKER W/ MIN-MOD ASSIST X 1. ATTEMPTED TO STEP W/ USE OF MICK-WALKER. PT. STEPPED W/ R LE W/ MOD ASSIST X 2 AND MOD-MAX ASSIST TO ADVANCE MICK-WALKER. PT. THEN REPORTED HE NEEDED TO SIT BACK DOWN. DIFFICUT TO DETERMINE WHY D/T PT'S APHASIC/APRAXIC SPEECH. PT. DID C/O SOME DIZZINESS AFTER STANDING AND BP WAS 84/64 AFTER STANDING AND RETURN TO SITTING. ENCOURAGED PT. TO REMAIN SITTING THROUGH LUNCH IF POSSIBLE. WILL CONT. P.T. 5X/WK TO INCREASE STRENGTH AND PROGRESS PT'S INDEPENDENCE W/ FUNCTIONAL MOBILITY. RX TIME 11:15-11:40 Initialized on 11/15/21 11:41 - END OF NOTE Assessment/Plan (1) General weakness Current Visit: No Status: Acute Code(s): R53.1 - WEAKNESS (2) AMS (altered mental status) Current Visit: Yes Status: Resolved Qualifiers: Altered mental status type: delirium Qualified Code(s): R41.0 - Disorientation, unspecified Code(s): R41.82 - ALTERED MENTAL STATUS, UNSPECIFIED (3) Acute kidney injury Current Visit: Yes Status: Resolved Code(s): N17.9 - ACUTE KIDNEY FAILURE, UNSPECIFIED (4) UTI (urinary tract infection) Current Visit: Yes Status: Resolved Qualifiers: Urinary tract infection type: acute cystitis Hematuria presence: without hematuria Qualified Code(s): N30.00 - Acute cystitis without hematuria Code(s): N39.0 - URINARY TRACT INFECTION, SITE NOT SPECIFIED (5) History of CVA (cerebrovascular accident) Current Visit: No Status: Chronic Assessment & Plan: with late effects, including R sided hemiparesis. Will discharge to [facility] when they are ready to accept pt. Code(s): Z86.73 - PRSNL HX OF TIA (TIA), AND CEREB INFRC W/O RESID DEFICITS
--- NOTE | 2021-11-15 14:04 | PCM.DS ---
Discharge Summary Date of Admission: 11/08/21 21:32 Date of Discharge: 11/11/21 Admitting Physician: GIANCARLO TIM Consults: Consults on Case 11/10/21 09:50 Consult Cardiology ROUTINE Primary Care Provider: GIANCARLO TIM Allergies Allergies No Known Drug Allergies Allergy (Verified 11/08/21 22:14) Hospital Summary - Hospital Course Hospital Course: Pt is 61 yo male with hx CVA who had AMS/weakness and was admitted. Found to have UTI and treated with improvement. Had PANKAJ on admission but last labs were normal. He was supposed to be discharged to LTCF but is not being discharged until today. CXR nonacute. CT chest with non-occluding pulmonary emboli. CT and MRI head wi th old infarct, nothing acute. He is tolerating po. Will - Vitals & Intake/Output Vital Signs: Vital Signs Temperature 98.1 F 11/15/21 11:51 Pulse Rate 92 H 11/15/21 11:51 Respiratory Rate 16 11/15/21 11:51 Blood Pressure 101/79 11/15/21 11:51 O2 Sat by Pulse Oximetry 96 11/15/21 11:51 Intake & Output: Intake & Output 11/13/21 11/14/21 11/15/21 11/16/21 11:59 11:59 11:59 11:59 Intake Total 1456 1035 1320 Balance 1456 1035 1320 Weight 99.2 kg 100.4 kg 100.4 kg - Lab Result Diagrams: 11/11/21 05:06 11/11/21 05:06 Micro Results-Entire Visit: Microbiology 11/08/21 16:35 Urine Culture - Final Clean Catch Midstream Enterococcus Faecalis - Procedures and Test Procedures and Tests throughout Hospitalization: Therapy Orders & Screens 11/08/21 22:43 Oxygen Nasal Cannula 2 lpm Comment: Diagnosis: Altered Mental Status 11/09/21 09:00 EEG 41-60 Minutes (Normal) ONCE Comment: Reason For Exam: Diagnosis: Altered Mental Status 11/10/21 10:13 PT Eval & Treat ( Order) ONCE Reason for Eval:: WEAKNESS- NEEDING SNF PLACEMENT Diagnosis: Altered Mental Status 11/15/21 09:10 OT Eval and Treat ( Order) ONCE Comment: Consulting Provider: Physician Instructions: Reason For Exam: Diagnosis: Altered Mental Status, UTI Discharge Exam General Appearance: no apparent distress, alert Neurologic Exam: oriented x 3, cooperative, other (R arm contracture) Eye Exam: eyes nml inspection Ears, Nose, Throat Exam: moist mucous membranes Neck Exam: normal inspection Respiratory Exam: normal breath sounds, lungs clear, No crackles/rales, No rhonchi, No wheezing Cardiovascular Exam: regular rate/rhythm, normal heart sounds, No murmur Gastrointestinal/Abdomen Exam: soft, normal bowel sounds, No tenderness, No distention, No mass, No guarding, No rebound Back Exam: normal inspection, No rash Extremity Exam: No pedal edema, No swelling Skin Exam: normal color, warm, dry, No rash Wound Assessment: Skin/Wound Assessment Wound/Incision Assessment Start: 11/08/21 23:28 Text: Status: Active Freq: Q6H Protocol: Document 11/15/21 13:44 ZINA (Rec: 11/15/21 13:45 ZINA [id number]) Wound/Incision Assessment Left Da Silva Wound Assessment Shift Assessment Drainage Odor None/Absent General Appearance Open to air,Clean/Dry Wound Bed Greatest Portion Pale Crewe Wound Bed Lesser Portion Pale Crewe Surrounding Tissue Edematous Anterior Right Knee Wound Assessment Shift Assessment Wound Type scab Wound Stage Non Pressure Wound General Appearance Open to air,Clean/Dry Length (cm) (cm) 3 Width (cm) (cm) 1.5 Wound Bed Greatest Portion Black (Eschar) Wound Bed Lesser Portion Pale Crewe Surrounding Tissue Crewe Posterior Left Hand Wound Assessment Shift Assessment Wound Type Skin Tear Wound Stage Non Pressure Wound Drainage Amount None General Appearance Clean/Dry Wound Bed Greatest Portion Red (Granulation) Wound Bed Lesser Portion Red (Granulation) Surrounding Tissue Purple Right Elbow Wound Assessment Shift Assessment Wound Type circular scab Drainage Amount None General Appearance Open to air,Clean/Dry Length (cm) (cm) 1 Width (cm) (cm) 0.5 Depth (cm) (cm) 0.1 Surrounding Tissue Purple Posterior Right Upper Arm Wound Assessment Shift Assessment Wound Type Skin Tear Wound Stage Non Pressure Wound Drainage Amount None General Appearance Clean/Dry Length (cm) (cm) 5 Width (cm) (cm) 2.5 Depth (cm) (cm) 0 Wound Bed Greatest Portion Pale [place] Wound Bed Lesser Portion Pale [place]we Surrounding Tissue Purple Wound Photo Photo Taken No Comment: pictures taken upon admission Final Diagnosis/Problem List - Final Discharge Diagnosis/Problem (1) General weakness Current Visit: No Status: Acute Assessment & Plan: to LTCF today. Code(s): R53.1 - WEAKNESS (2) AMS (altered mental status) Current Visit: Yes Status: Resolved Code(s): R41.82 - ALTERED MENTAL STATUS, UNSPECIFIED (3) Acute kidney injury Current Visit: Yes Status: Resolved Code(s): N17.9 - ACUTE KIDNEY FAILURE, UNSPECIFIED (4) UTI (urinary tract infection) Current Visit: Yes Status: Resolved Code(s): N39.0 - URINARY TRACT INFECTION, SITE NOT SPECIFIED (5) History of CVA (cerebrovascular accident) Current Visit: No Status: Chronic Code(s): Z86.73 - PRSNL HX OF TIA (TIA), AND CEREB INFRC W/O RESID DEFICITS (6) Atrial fibrillation Current Visit: Yes Status: Acute Code(s): I48.91 - UNSPECIFIED ATRIAL FIBRILLATION (7) Pulmonary emboli Current Visit: Yes Status: Acute Assessment & Plan: stay on eliquis bid 5mg Code(s): I26.99 - OTHER PULMONARY EMBOLISM WITHOUT ACUTE COR PULMONALE (8) Seizure Current Visit: Yes Status: Chronic Code(s): R56.9 - UNSPECIFIED CONVULSIONS - Discharge Disposition: DC TO [facility] Condition: Fair Prescriptions: New Levofloxacin [Levofloxacin 500 MG Tablet] 500 mg PO DAILY #10 tablet Continue Tamsulosin HCl 0.4 mg [Flomax 0.4 MG] 0.4 mg PO DAILY Atorvastatin Calcium [Lipitor] 80 mg PO DAILY Baclofen 10 mg [Lioresal 10 mg] 10 mg PO TIDPRN PRN PRN Reason: Muscle Spasms Aspirin EC 81 mg [Ecotrin 81 mg] 81 mg PO DAILY #30 tablet Apixaban [Eliquis] 5 mg PO BID #60 tablet Metoprolol Succinate 50 mg [Toprol Xl 50 MG] 50 mg PO DAILY #30 tablet.sa Cyanocobalamin (Vitamin B-12) [Vitamin B-12] 1,000 mcg PO DAILY Duloxetine HCl 30 mg [Cymbalta 30 MG Capsule] 30 mg PO DAILY Mirtazapine 7.5 mg PO DAILY Gemfibrozil 600 mg [Lopid 600 mg] 600 mg PO BID Omeprazole 20 mg PO DAILY PANTOPRAZOLE 40 mg Tablet [Protonix 40MG Tablet] 40 mg PO DAILY Additional Instructions: LONG-TERM ORDERS: ADMIT TO [facility] FACILITY REGULAR DIET PT/OT EVAL AND TREAT CONTINUE PO LEVOQUIN FOR TOTAL OF 10 DAYS. Follow up with: COURTNEY FERRO [CONSULTING PHYSICIAN] - 11/16/21 3:15 pm (with Gabby Phan/CHIQUI)
== END 2021-11-15 16:02 ==
LOC: ED 15:49 → OBSVTOIN 21:32 → ICU 21:32 → INTOOBSV 21:32
PROVIDERS: ADMIT Family Medicine; ATTEND Family Medicine
DX: N39.0 Urinary tract infection, site not specified (principal); R41.82 Altered mental status, unspecified; I48.91 Unspecified atrial fibrillation; N17.9 Acute kidney failure, unspecified; R53.1 Weakness; I26.99 Other pulmonary embolism without acute cor pulmonale; R56.9 Unspecified convulsions; E78.00 Pure hypercholesterolemia, unspecified; I10 Essential (primary) hypertension; I69.951 Hemiplegia and hemiparesis following unspecified cerebrovascular disease affecting right dominant side; S40.811A Abrasion of right upper arm, initial encounter; S50.311A Abrasion of right elbow, initial encounter; S60.512A Abrasion of left hand, initial encounter; S80.211A Abrasion, right knee, initial encounter; S80.812A Abrasion, left lower leg, initial encounter; Z79.899 Other long term (current) drug therapy; Z72.0 Tobacco use; Z20.828 Contact with and (suspected) exposure to other viral communicable diseases
CPT/HCPCS: 0241U; 36000; 36415; 51702; 70450; 70551; 71045; 71260; 80053; 80307; 81001; 82550; 82947; 83540; 83550; 83605; 83880; 84134; 84484; 85025; 85027; 85379; 85730; 87077; 87086; 87186; 93005; 93268; 95812; 96360; 96361; 96365; 97162; 97165; 97530; 99285; G0328; G0378; G0480; Q3014; 82274; J0696; J1650; A9270-GY

== ENCOUNTER 2021-12-17 12:08 | Observation (INO) | payer MEDICARE ==
[2021-12-17 12:51] LABS: Absolute Neutrophil Ct (ANC) 2.97 (1.4-6.9); Basophil (Absolute #) 0.04 (0-0.4); Eosinophil % 4.8 % (0.00-5.0); Eosinophil (Absolute #) 0.26 (0-0.5); Hematocrit 44.4 % (42-50); Hemoglobin 14.6 gm/dl (12.5-18.0); Lymphocyte (Absolute #) 1.49 (1.0-4.6); Lymphocytes % 27.5 % (24.0-44.0); Mean Corpuscular Hemoglobin 29.9 pg (26-32); Mean Corpuscular Hgb Concent. 32.9 g/dl (32-36); Mean Platelet Volume 9.8 fl (7.5-11.0); Monocyte (Absolute #) 0.66 (0.0-1.3); Monocytes % 12.2 % (0.0-12.0); Neutrophil % 54.8 % (36.0-66.0); Platelet Count 258 K/mm3 (150-450); Red Blood Count 4.88 M/mm3 (4.1-5.6); Red Cell Distribution Width 16.6 % (11.5-14.0); White Blood Count 5.4 K/mm3 (4.0-10.5)
--- NOTE | 2021-12-17 12:54 | ERPHSYRPT ---
- History of Present Illness Source: patient, EMS Exam Limitations: other (Poor historian) Patient Subjective Stated Complaint: pt here after signing himself out of [facility] yesterday and returning to his home and is unable to care for himself. pt wishes to be at [facility] [place]. pt lives alone and has home health care. Triage Nursing Assessment: comes in via ambulance, pt is breathing easily on cot, pt A&O x4. pt smells strongly of urine and is saturated in urine. pt denies CP, SOB, any new pain, or new onset of weakness. pt has had stroke in the past and has right sided weakness as a result. pt breath sounds clear, bowel sounds present x4. Physician History: 61 yo wm who left a NH in [place] yesterday against medical advice presents by EMS because he wants to go to [facility]. Pt is alert and oriented x3 and in NAD. Chest pain/fever/dyspnea/N/V/D/Melena/hematochezia are all denied. Pt has a L hemiparesis from previous CVA. He is disheveled and smelling of urine. Timing/Duration: yesterday Modifying Factors: Improves With: nothing Associated Symptoms: No nausea, No vomiting, No abdominal pain, No shortness of breath, No heartburn, No diaphoresis, No cough, No chills, No chest pain, No fever, No headaches, No loss of appetite, No malaise, No rash, No syncope, No seizure, No weakness Allergies/Adverse Reactions: No Known Drug Allergies Allergy (Verified 12/17/21 12:30) Home Medications: Atorvastatin Calcium [Lipitor] 80 mg PO DAILY 08/31/17 [History] Tamsulosin HCl 0.4 mg [Flomax 0.4 MG] 0.4 mg PO DAILY 08/31/17 [History] Baclofen 10 mg [Lioresal 10 mg] 10 mg PO TIDPRN PRN 03/30/19 [History] Cyanocobalamin (Vitamin B-12) [Vitamin B-12] 1,000 mcg PO DAILY 03/17/21 [History] Duloxetine HCl 30 mg [Cymbalta 30 MG Capsule] 30 mg PO DAILY 03/17/21 [History] Gemfibrozil 600 mg [Lopid 600 mg] 600 mg PO BID 11/09/21 [History] Mirtazapine 7.5 mg PO DAILY 11/09/21 [History] Omeprazole 20 mg PO DAILY 11/09/21 [History] PANTOPRAZOLE 40 mg Tablet [Protonix 40MG Tablet] 40 mg PO DAILY 11/09/21 [History] Hx Tetanus, Diphtheria Vaccination/Date Given: No (unknown) Hx Influenza Vaccination/Date Given: No (unknown) Hx Pneumococcal Vaccination/Date Given: No (unknown) Travel Risk - International Travel Have you traveled outside of the country in past 3 weeks: No - Coronavirus Screening Are you exhibiting any of the following symptoms?: No Close contact with a COVID-19 positive Pt in past 14-21 Days: No - Vaccine Status Have you recieved a Covid-19 vaccination: Yes (unknown) Engineering Lecturer: Unknown - Vaccination Dates Date of 2cond Vaccination (if applicable): November 2021 Dates if Unknown: unknown - Review of Systems Constitutional: No Symptoms Eyes: No Symptoms Ears, Nose, & Throat: No Symptoms Respiratory: No Symptoms Cardiac: No Symptoms Abdominal/Gastrointestinal: No Symptoms Genitourinary Symptoms: No Symptoms Musculoskeletal: No Symptoms Skin: No Symptoms Neurological: No Symptoms Psychological: No Symptoms Endocrine: No Symptoms Hematologic/Lymphatic: No Symptoms Immunological/Allergic: No Symptoms - Past Medical History Pertinent Past Medical History: Yes Neurological History: Stroke ENT History: No Pertinent History Cardiac History: High Cholesterol, Hypertension Respiratory History: No Pertinent History Endocrine Medical History: No Pertinent History Musculoskeletal History: No Pertinent History GI Medical History: Gallbladder Disease History: No Pertinent History Psycho-Social History: No Pertinent History Male Reproductive Disorders: Prostate Problems Other Medical History: Kidney stones. PATIENT POOR HISTORIAN. - Past Surgical History Past Surgical History: Yes Neuro Surgical History: No Pertinent History Cardiac: No Pertinent History Respiratory: No Pertinent History Gastrointestinal: No Pertinent History Genitourinary: No Pertinent History Musculoskeletal: Orthopedic Surgery Male Surgical History: No Pertinent History Other Surgical History: Colonoscopy - Social History Smoking Status: Current every day smoker How long have you smoked: 40 years Exposure to second hand smoke: No (unknown) Drug Use: none Patient Lives Alone: Yes (yes? with home health care) - Nursing Vital Signs Nursing Vital Signs: Initial Vital Signs Temperature 96.3 F 12/17/21 12:10 Pulse Rate 100 H 12/17/21 12:10 Respiratory Rate 24 12/17/21 12:10 Blood Pressure 112/77 12/17/21 12:10 O2 Sat by Pulse Oximetry 96 12/17/21 12:10 Pain Scale Pain Intensity 2 Tachycardia - Physical Exam General Appearance: no apparent distress (Disheveled) Eye Exam: PERRL/EOMI, eyes nml inspection Ears, Nose, Throat Exam: normal ENT inspection, TMs normal, pharynx normal, moist mucous membranes Neck Exam: normal inspection, non-tender, supple, full range of motion, No meningismus, No mass, No Brudzinski, No Kernig's, No carotid bruit Respiratory Exam: normal breath sounds, lungs clear, airway intact Cardiovascular Exam: regular rate/rhythm, normal heart sounds, normal peripheral pulses, capillary refill <2 sec, No murmur Gastrointestinal/Abdomen Exam: soft, normal bowel sounds, No tenderness Back Exam: normal inspection, normal range of motion Extremity Exam: normal inspection, pelvis stable Neurologic Exam: alert, oriented x 3, cooperative, 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, motor deficits (Chronic R hemiparesis), other (Flat affect), No disoriented, No confusion, No facial droop, No slurred speech Skin Exam: normal color, warm, dry Lymphatic Exam: No adenopathy SpO2 Interpretation: normal SpO2: 96 O2 Delivery: Room Air - Course Nursing assessment & vital signs reviewed: Yes EKG Interpreted by Me: RATE (Afib/R95/Normal QT-QTc/No acute ST segment changes/Low voltage Inferior leads) Ordered Tests: Active Orders 24 hr Category Date Time Status Bedrest ROUTINE Activity 12/17/21 15:51 Ordered Code Status Order ROUTINE Care 12/17/21 15:50 Ordered EKG-ER Only STAT Care 12/17/21 12:19 Active IV Care Q6H Care 12/17/21 15:50 Ordered IV Insertion STAT Care 12/17/21 14:43 Active Intake and Output Q12H Care 12/17/21 15:50 Ordered Vital Signs Q4H Care 12/17/21 15:50 Ordered cath [Cath for Specimen-Straight] STAT Care 12/17/21 13:28 Active Heart-Healthy Diet Diet 12/17/21 Dinner Ordered CHEST 1 VIEW (PORTABLE) Stat Exams 12/17/21 12:21 Completed BLOOD CULTURE Stat Lab 12/17/21 14:42 Received CBC W DIFF AM.LAB Lab 12/18/21 04:00 Ordered CBC W DIFF Stat Lab 12/17/21 12:39 Completed CMP AM.LAB Lab 12/18/21 04:00 Ordered CMP Stat Lab 12/17/21 12:39 Completed CULTURE,URINE Stat Lab 12/17/21 13:28 Received Lactic Acid Stat Lab 12/17/21 15:00 Completed NT PRO BNP Stat Lab 12/17/21 12:39 Completed TROPONIN Q3H Lab 12/17/21 12:39 Completed TROPONIN Q3H Lab 12/17/21 13:39 Received TROPONIN Q3H Lab 12/17/21 18:30 Ordered TROPONIN Q3H Lab 12/17/21 21:30 Ordered TROPONIN Q3H Lab 12/18/21 00:30 Ordered UA W/RFX CULTURE Stat Lab 12/17/21 13:28 Completed Urine Triage Profile Stat Lab 12/17/21 14:00 Completed Transfer Order Routine Transfer 12/17/21 Ordered Medication Summary Generic Name Dose Route Start Last Admin Trade Name Freq PRN Reason Stop Dose Admin Sodium Chloride 1,000 mls @ 100 mls/hr 12/17/21 16:00 Sodium Chloride 0.9% 1000 Ml IV 01/16/22 15:59 .Q10H SHERRI Levofloxacin/Dextrose 750 mg in 150 mls @ 100 mls/hr 12/18/21 10:00 Levofloxacin 750mg/150ml D5w IV 01/17/22 09:59 Q24H10 SHERRI Ondansetron HCl 4 mg 12/17/21 15:50 Ondansetron Hcl 4 Mg/2 Ml Vial IV 01/16/22 15:49 Q6H PRN PRN NAUSEA/VOMITING Pantoprazole Sodium 40 mg 12/18/21 10:00 Pantoprazole 40 Mg Vial IV 01/17/22 09:59 Q24H10 SHERRI Discontinued Medications Generic Name Dose Route Start Last Admin Trade Name Freq PRN Reason Stop Dose Admin Levofloxacin/Dextrose 750 mg in 150 mls @ 100 mls/hr 12/17/21 14:23 12/17/21 14:41 Levofloxacin 750mg/150ml D5w IV 12/17/21 15:52 100 ml/hr STAT STA 100 mls/hr Administration Levofloxacin/Dextrose Confirm 12/17/21 14:40 Levofloxacin 750mg/150ml D5w Administered 12/17/21 14:41 Dose 750 mg in 150 mls @ ud IV .STK-MED ONE Lab/Rad Data: Laboratory Result Diagrams 12/17/21 12:39 12/17/21 12:39 Laboratory Results 12/17/21 12/17/21 12/17/21 Range/Units 15:00 14:00 13:28 WBC (4.0-10.5) K/mm3 RBC (4.1-5.6) M/mm3 Hgb (12.5-18.0) gm/dl Hct (42-50) % MCV (78-100) fl MCH (26-32) pg MCHC (32-36) g/dl RDW (11.5-14.0) % Plt Count (150-450) K/mm3 MPV (7.5-11.0) fl Gran % (36.0-66.0) % Eos # (Auto) (0-0.5) Absolute Lymphs (auto) (1.0-4.6) Absolute Monos (auto) (0.0-1.3) Lymphocytes % (24.0-44.0) % Monocytes % (0.0-12.0) % Eosinophils % (0.00-5.0) % Basophils % (0.0-0.4) % Absolute Granulocytes (1.4-6.9) Basophils # (0-0.4) Sodium (137-145) mmol/L Potassium (3.5-5.1) mmol/L Chloride (98-107) mmol/L Carbon Dioxide (22-30) mmol/L Anion Gap (5-15) MEQ/L BUN (9-20) mg/dL Creatinine (0.66-1.25) mg/dL Estimated GFR ML/MIN Glucose (74-106) mg/dL Lactic Acid 1.5 (0.4-2.0) Calcium (8.4-10.2) mg/dL Total Bilirubin (0.2-1.3) mg/dL AST (17-59) U/L ALT (0-50) U/L Alkaline Phosphatase (38-126) U/L Troponin I (0.000-0.034) ng/mL NT-Pro-B Natriuret Pep (0-900) pg/mL Serum Total Protein (6.3-8.2) g/dL Albumin (3.5-5.0) g/dL Urinalys Dipstick Clnc MAIN LAB Urine Color YELLOW (YELLOW) Urine Appearance CLEAR (CLEAR) Urine pH 6.5 (5-6) Ur Specific [place] 6.5 (1.005-1.025) POC Urine Protein Conf 100 (Negative) Urine Ketones NEGATIVE (NEGATIVE) Urine Nitrite NEGATIVE (NEGATIVE) Urine Bilirubin NEGATIVE (NEGATIVE) Urine Urobilinogen 0.2 (0-1) mg/dL Urine Leukocytes NEGATIVE (NEGATIVE) Urine WBC (Auto) 16-25 (0-5) /HPF Urine RBC (Auto) >101 (0-2) /HPF U Epithel Cells (Auto) NONE (FEW) /HPF Urine Bacteria (Auto) RARE (NEGATIVE) /HPF Urine RBC LARGE (0-5) Cali/ul Ur Culture Indicated? YES Urine Glucose NEGATIVE (NEGATIVE) mg/dL Urine Opiates Level NEGATIVE (NEGATIVE) Ur Methadone NEGATIVE (NEGATIVE) Urine Barbiturates NEGATIVE (NEGATIVE) Ur Phencyclidine (PCP) NEGATIVE (NEGATIVE) Urine Amphetamine NEGATIVE (NEGATIVE) U Benzodiazepine Level NEGATIVE (NEGATIVE) Urine Cocaine NEGATIVE (NEGATIVE) Urine Marijuana (THC) NEGATIVE (NEGATIVE) Influenza Type A Ag (NEGATIVE) Influenza Type B Ag (NEGATIVE) RSV (PCR) (Negative) SARS-CoV-2 (PCR) (NEGATIVE) 12/17/21 12/17/21 12/17/21 Range/Units 12:39 12:39 12:39 WBC (4.0-10.5) K/mm3 RBC (4.1-5.6) M/mm3 Hgb (12.5-18.0) gm/dl Hct (42-50) % MCV (78-100) fl MCH (26-32) pg MCHC (32-36) g/dl RDW (11.5-14.0) % Plt Count (150-450) K/mm3 MPV (7.5-11.0) fl Gran % (36.0-66.0) % Eos # (Auto) (0-0.5) Absolute Lymphs (auto) (1.0-4.6) Absolute Monos (auto) (0.0-1.3) Lymphocytes % (24.0-44.0) % Monocytes % (0.0-12.0) % Eosinophils % (0.00-5.0) % Basophils % (0.0-0.4) % Absolute Granulocytes (1.4-6.9) Basophils # (0-0.4) Sodium 137 (137-145) mmol/L Potassium 4.5 (3.5-5.1) mmol/L Chloride 106 (98-107) mmol/L Carbon Dioxide 22 (22-30) mmol/L Anion Gap 13.6 (5-15) MEQ/L BUN 12 (9-20) mg/dL Creatinine 0.57 L (0.66-1.25) mg/dL Estimated GFR > 60.0 ML/MIN Glucose 117 H (74-106) mg/dL Lactic Acid (0.4-2.0) Calcium 9.5 (8.4-10.2) mg/dL Total Bilirubin 0.80 (0.2-1.3) mg/dL AST 34 (17-59) U/L ALT 12 (0-50) U/L Alkaline Phosphatase 102 (38-126) U/L Troponin I < 0.012 (0.000-0.034) ng/mL NT-Pro-B Natriuret Pep 974 H (0-900) pg/mL Serum Total Protein 6.9 (6.3-8.2) g/dL Albumin 3.5 (3.5-5.0) g/dL Urinalys Dipstick Clnc Urine Color (YELLOW) Urine Appearance (CLEAR) Urine pH (5-6) Ur Specific [place] (1.005-1.025) POC Urine Protein Conf (Negative) Urine Ketones (NEGATIVE) Urine Nitrite (NEGATIVE) Urine Bilirubin (NEGATIVE) Urine Urobilinogen (0-1) mg/dL Urine Leukocytes (NEGATIVE) Urine WBC (Auto) (0-5) /HPF Urine RBC (Auto) (0-2) /HPF U Epithel Cells (Auto) (FEW) /HPF Urine Bacteria (Auto) (NEGATIVE) /HPF Urine RBC (0-5) Cali/ul Ur Culture Indicated? Urine Glucose (NEGATIVE) mg/dL Urine Opiates Level (NEGATIVE) Ur Methadone (NEGATIVE) Urine Barbiturates (NEGATIVE) Ur Phencyclidine (PCP) (NEGATIVE) Urine Amphetamine (NEGATIVE) U Benzodiazepine Level (NEGATIVE) Urine Cocaine (NEGATIVE) Urine Marijuana (THC) (NEGATIVE) Influenza Type A Ag NEGATIVE (NEGATIVE) Influenza Type B Ag NEGATIVE (NEGATIVE) RSV (PCR) NEGATIVE (Negative) SARS-CoV-2 (PCR) NEGATIVE (NEGATIVE) 12/17/21 Range/Units 12:39 WBC 5.4 (4.0-10.5) K/mm3 RBC 4.88 (4.1-5.6) M/mm3 Hgb 14.6 (12.5-18.0) gm/dl Hct 44.4 (42-50) % MCV 91.0 (78-100) fl MCH 29.9 (26-32) pg MCHC 32.9 (32-36) g/dl RDW 16.6 H (11.5-14.0) % Plt Count 258 (150-450) K/mm3 MPV 9.8 (7.5-11.0) fl Gran % 54.8 (36.0-66.0) % Eos # (Auto) 0.26 (0-0.5) Absolute Lymphs (auto) 1.49 (1.0-4.6) Absolute Monos (auto) 0.66 (0.0-1.3) Lymphocytes % 27.5 (24.0-44.0) % Monocytes % 12.2 H (0.0-12.0) % Eosinophils % 4.8 (0.00-5.0) % Basophils % 0.7 (0.0-0.4) % Absolute Granulocytes 2.97 (1.4-6.9) Basophils # 0.04 (0-0.4) Sodium (137-145) mmol/L Potassium (3.5-5.1) mmol/L Chloride (98-107) mmol/L Carbon Dioxide (22-30) mmol/L Anion Gap (5-15) MEQ/L BUN (9-20) mg/dL Creatinine (0.66-1.25) mg/dL Estimated GFR ML/MIN Glucose (74-106) mg/dL Lactic Acid (0.4-2.0) Calcium (8.4-10.2) mg/dL Total Bilirubin (0.2-1.3) mg/dL AST (17-59) U/L ALT (0-50) U/L Alkaline Phosphatase (38-126) U/L Troponin I (0.000-0.034) ng/mL NT-Pro-B Natriuret Pep (0-900) pg/mL Serum Total Protein (6.3-8.2) g/dL Albumin (3.5-5.0) g/dL Urinalys Dipstick Clnc Urine Color (YELLOW) Urine Appearance (CLEAR) Urine pH (5-6) Ur Specific [place] (1.005-1.025) POC Urine Protein Conf (Negative) Urine Ketones (NEGATIVE) Urine Nitrite (NEGATIVE) Urine Bilirubin (NEGATIVE) Urine Urobilinogen (0-1) mg/dL Urine Leukocytes (NEGATIVE) Urine WBC (Auto) (0-5) /HPF Urine RBC (Auto) (0-2) /HPF U Epithel Cells (Auto) (FEW) /HPF Urine Bacteria (Auto) (NEGATIVE) /HPF Urine RBC (0-5) Cali/ul Ur Culture Indicated? Urine Glucose (NEGATIVE) mg/dL Urine Opiates Level (NEGATIVE) Ur Methadone (NEGATIVE) Urine Barbiturates (NEGATIVE) Ur Phencyclidine (PCP) (NEGATIVE) Urine Amphetamine (NEGATIVE) U Benzodiazepine Level (NEGATIVE) Urine Cocaine (NEGATIVE) Urine Marijuana (THC) (NEGATIVE) Influenza Type A Ag (NEGATIVE) Influenza Type B Ag (NEGATIVE) RSV (PCR) (Negative) SARS-CoV-2 (PCR) (NEGATIVE) - Progress Progress: improved Progress Note: 12/17/21 15:[address] Tim 12/17/21 15:55 Blood cultures x2 Levaquin 750mg IV Counseled pt/family regarding: lab results, diagnosis, need for follow-up, rad results - Departure Departure Disposition: Observation Clinical Impression: Pneumonia, UTI (urinary tract infection), Failure to thrive in adult Condition: Stable Critical Care Time: No Referrals: GIANCARLO TIM MD [Primary Care Provider] - Follow up/PCP as directed
--- NOTE | 2021-12-17 13:18 | XRAY ---
Indication: Lethargy. Comparison: November 08, 2021. Portable chest demonstrates new right lower lobe infiltrate/atelectasis with moderate effusion. Remaining heart and left lung unremarkable. Bony thorax intact again with mild osteopenia, degenerative changes, and old right lower rib fractures.
[2021-12-17 13:30] LABS: ALBUMIN 3.5 g/dL (3.5-5.0); ALKALINE PHOSPHATASE 102 U/L (38-126); ANION GAP 13.6 MEQ/L (5-15); BLOOD UREA NITROGEN 12 mg/dL (9-20); CHLORIDE 106 mmol/L (98-107); Calcium 9.5 mg/dL (8.4-10.2); Carbon Dioxide 22 mmol/L (22-30); Creatinine 1 0.57 mg/dL (0.66-1.25); EST GLOMERULAR FILTRATION RATE > 60.0 ML/MIN; Glucose 117 mg/dL (74-106); NT PRO BNP 974 pg/mL (0-900); Potassium 4.5 mmol/L (3.5-5.1); SGOT/AST 34 U/L (17-59); SGPT/ALT 12 U/L (0-50); SODIUM 137 mmol/L (137-145); Total Protein 6.9 g/dL (6.3-8.2)
[2021-12-17 13:32] LABS: INFLUENZA A NEGATIVE (NEGATIVE); INFLUENZA B NEGATIVE (NEGATIVE); RESPIRATORY SYNCTIAL VIRUS NEGATIVE (Negative); SARS-CoV-2 Xpert Express NEGATIVE (NEGATIVE)
[2021-12-17 13:57] LABS: Bacteria RARE /HPF (NEGATIVE)
[2021-12-17 14:02] LABS: RBC >101 /HPF (0-2)
[2021-12-17 14:03] LABS: Appearance CLEAR (CLEAR); Bilirubin NEGATIVE (NEGATIVE); Glucose NEGATIVE (NEGATIVE); Ketones NEGATIVE (NEGATIVE); Nitrite NEGATIVE (NEGATIVE); Ph 6.5 (5-6); Protein,Urine Dip 100 (Negative); RBC LARGE Ery/ul (0-5); Specific Gravity 6.5 (1.005-1.025); Urobilinogen 0.2 mg/dL (0-1)
[2021-12-17 14:04] LABS: Urine Cultured Indicated? YES
[2021-12-17] MEDS ORDERED: LEVOFLOXACIN 750MG/150ML D5W 750 MG/150 ML BAG IV STA (14:23)
[2021-12-17 14:25] LABS: Dipstick done @ ? MAIN LAB
[2021-12-17 14:32] LABS: Amphetamine,Urine NEGATIVE (NEGATIVE); Barbiturate,Urine NEGATIVE (NEGATIVE); Benzodiazepine,Urine NEGATIVE (NEGATIVE); Cocaine,Urine NEGATIVE (NEGATIVE); Methadone,Urine NEGATIVE (NEGATIVE); Opiate,Urine NEGATIVE (NEGATIVE); PCP,Urine NEGATIVE (NEGATIVE); THC,Urine NEGATIVE (NEGATIVE)
[2021-12-17] MEDS ORDERED: LEVOFLOXACIN 750MG/150ML D5W 750 MG/150 ML BAG IV ONE (14:40)
[2021-12-17] MEDS ORDERED: Zofran 4 MG/2 ML VIAL IV PRN (15:50)
[2021-12-17] MEDS: Sodium Chloride 0.9% 1000 ML 1,000 ML IV SCH (17:55)
[2021-12-17] MEDS: ECOTRIN 81 MG PO SCH (17:57)
[2021-12-17] MEDS: Cymbalta 30 MG Capsule PO SCH (17:57)
[2021-12-17] MEDS: Vitamin B-12 500 MCG PO SCH (17:57)
[2021-12-17] MEDS: Toprol Xl 50 MG PO SCH (17:57)
[2021-12-17] MEDS: LIPITOR 40MG PO SCH (17:58)
[2021-12-17] MEDS: Flomax 0.4 MG PO SCH (17:58)
[2021-12-17] MEDS: Protonix 40MG Tablet PO SCH (17:58)
[2021-12-17] MEDS ORDERED: PROTONIX 40 MG IV IV SCH (18:00)
[2021-12-17] MEDS: ELIQUIS 2.5 MG TABLET PO SCH (21:59)
[2021-12-17] MEDS: LOPID PO SCH (21:59)
[2021-12-18] MEDS: Sodium Chloride 0.9% 1000 ML 1,000 ML IV SCH (03:54)
[2021-12-18 05:37] LABS: Absolute Neutrophil Ct (ANC) 2.13 (1.4-6.9); Basophil (Absolute #) 0.04 (0-0.4); Eosinophil % 5.1 % (0.00-5.0); Eosinophil (Absolute #) 0.27 (0-0.5); Hematocrit 41.6 % (42-50); Hemoglobin 13.6 gm/dl (12.5-18.0); Lymphocyte (Absolute #) 2.01 (1.0-4.6); Lymphocytes % 38.3 % (24.0-44.0); Mean Cell Volume 91.4 fl (78-100); Mean Corpuscular Hemoglobin 29.9 pg (26-32); Mean Corpuscular Hgb Concent. 32.7 g/dl (32-36); Mean Platelet Volume 9.2 fl (7.5-11.0); Monocytes % 15.2 % (0.0-12.0); Neutrophil % 40.6 % (36.0-66.0); Platelet Count 240 K/mm3 (150-450); Red Blood Count 4.55 M/mm3 (4.1-5.6); Red Cell Distribution Width 16.4 % (11.5-14.0); White Blood Count 5.3 K/mm3 (4.0-10.5)
[2021-12-18 06:07] LABS: ALBUMIN 3.2 g/dL (3.5-5.0); ALKALINE PHOSPHATASE 86 U/L (38-126); ANION GAP 11.6 MEQ/L (5-15); BLOOD UREA NITROGEN 15 mg/dL (9-20); CHLORIDE 107 mmol/L (98-107); Calcium 9.2 mg/dL (8.4-10.2); Carbon Dioxide 22 mmol/L (22-30); Creatinine 1 0.68 mg/dL (0.66-1.25); EST GLOMERULAR FILTRATION RATE > 60.0 ML/MIN; Glucose 120 mg/dL (74-106); Potassium 4.1 mmol/L (3.5-5.1); SGOT/AST 27 U/L (17-59); SGPT/ALT 12 U/L (0-50); SODIUM 136 mmol/L (137-145); Total Protein 6.7 g/dL (6.3-8.2)
--- NOTE | 2021-12-18 08:54 | PCM.HP ---
History of Present Illness - Chief Complaint Chief Complaint: PNE; UTI/Failure to thrive History of Present Illness: is a 61 year old male.who left a NH in [place] yesterday against medical advice presents by EMS because he wants to go to [facility]. Pt is alert and oriented x3 and in NAD. Chest pain/fever/dyspnea/N/V/D/Melena/hematochezia are all denied. Pt has a L hemiparesis from previous CVA. He is disheveled and smelling of urine. Timing/Duration: yesterday Modifying Factors: Improves With: nothing Associated Symptoms: No nausea, No vomiting, No abdominal pain, No shortness of breath, No heartburn, No diaphoresis, No cough, No chills, No chest pain, No fever, No headaches, No loss of appetite, No malaise, No rash, No syncope, No seizure, No weakness - Review of Systems Constitutional: No Fever, No Chills Eyes: No Symptoms Ears, Nose, & Throat: No Symptoms Respiratory: No Cough, No Short Of Breath Cardiac: No Chest Pain, No Edema, No Syncope Abdominal/Gastrointestinal: No Abdominal Pain, No Nausea, No Vomiting, No Diarrhea Genitourinary Symptoms: No Dysuria Musculoskeletal: No Back Pain, No Neck Pain Skin: No Rash Neurological: No Dizziness, No Focal Weakness, No Sensory Changes Psychological: No Symptoms Endocrine: No Symptoms Hematologic/Lymphatic: No Symptoms Immunological/Allergic: No Symptoms Medications & Allergies Home Medications: Home Medication List Atorvastatin Calcium [Lipitor] 80 mg PO DAILY 08/31/17 [History Confirmed 12/17/21] Tamsulosin HCl 0.4 mg [Flomax 0.4 MG] 0.4 mg PO DAILY 08/31/17 [History Confirmed 12/17/21] Baclofen 10 mg [Lioresal 10 mg] 10 mg PO TIDPRN PRN 03/30/19 [History Confirmed 12/17/21] Apixaban [Eliquis] 5 mg PO BID #60 tablet 01/25/21 [Rx Confirmed 12/17/21] Aspirin EC 81 mg [Ecotrin 81 mg] 81 mg PO DAILY #30 tablet 01/25/21 [Rx Confirmed 12/17/21] Metoprolol Succinate 50 mg [Toprol Xl 50 MG] 50 mg PO DAILY #30 tablet.sa 01/25/21 [Rx Confirmed 12/17/21] Cyanocobalamin (Vitamin B-12) [Vitamin B-12] 1,000 mcg PO DAILY 03/17/21 [History Confirmed 12/17/21] Duloxetine HCl 30 mg [Cymbalta 30 MG Capsule] 30 mg PO DAILY 03/17/21 [History Confirmed 12/17/21] Gemfibrozil 600 mg [Lopid 600 mg] 600 mg PO BID 11/09/21 [History Confirmed 12/17/21] Mirtazapine 7.5 mg PO DAILY 11/09/21 [History Confirmed 12/17/21] Omeprazole 20 mg PO DAILY 11/09/21 [History Confirmed 12/17/21] Allergies/Adverse Reactions: Allergies Allergy/AdvReac Type Severity Reaction Status Date / Time No Known Drug Allergies Allergy Verified 12/17/21 12:30 - Past Medical History Past Medical History: Yes Neurological History: Stroke ENT History: No Pertinent History Cardiac History: High Cholesterol, Hypertension Respiratory History: No Pertinent History Endocrine Medical History: No Pertinent History Musculoskelatal History: No Pertinent History GI Medical History: Gallbladder Disease History: No Pertinent History Pyscho-Social History: No Pertinent History Male Reproductive Disorders: Prostate Problems Comment: Kidney stones. PATIENT POOR HISTORIAN. - Past Surgical History Past Surgical History: Yes Neuro Surgical History: No Pertinent History Cardiac History: No Pertinent History Respiratory Surgery: No Pertinent History GI Surgical History: No Pertinent History Genitourinary Surgical Hx: No Pertinent History Musculskeletal Surgical Hx: Orthopedic Surgery Male Surgical History: No Pertinent History Other Surgical History: Colonoscopy - Social History Smoking Status: Former smoker How long have you smoked: 40 years Exposure to second hand smoke: No Alcohol: Daily Drug Use: none - Physical Exam Vital Signs: Vital Signs - 24 hr Temp Pulse Resp BP Pulse Ox 12/18/21 08:00 98.2 F 80 18 113/74 98 12/18/21 04:00 97.7 F 84 16 93/66 93 L 12/18/21 00:00 97.7 F 102 H 16 98/60 95 12/17/21 20:00 98.6 F 104 H 20 94/63 95 12/17/21 16:49 97.1 F 110 H 18 102/62 98 12/17/21 16:18 97.1 F 110 H 18 102/62 98 12/17/21 15:55 96 12/17/21 15:00 104 H 18 101/70 96 12/17/21 14:00 96 H 18 102/87 98 12/17/21 13:00 108 H 20 90/73 98 12/17/21 12:10 96.3 F 100 H 24 112/77 96 General Appearance: no apparent distress, alert Neurologic Exam: alert, oriented x 3, cooperative, normal mood/affect, nml cerebellar function, nml station & gait, sensation nml, No motor deficits Eye Exam: PERRL/EOMI, eyes nml inspection Ears, Nose, Throat Exam: normal ENT inspection, TMs normal, pharynx normal, moist mucous membranes Neck Exam: normal inspection, non-tender, supple, full range of motion Respiratory Exam: normal breath sounds, lungs clear, No respiratory distress Cardiovascular Exam: regular rate/rhythm, normal heart sounds, normal peripheral pulses Gastrointestinal/Abdomen Exam: soft, normal bowel sounds, No tenderness, No mass Back Exam: normal inspection, normal range of motion, No CVA tenderness, No vertebral tenderness Extremity Exam: normal inspection, normal range of motion, pelvis stable Skin Exam: normal color, warm, dry, No rash Lymphatic Exam: No adenopathy Results - Labs Lab/Micro Results: Lab Results-Last 24 Hours 12/17/21 12/17/21 12/17/21 Range/Units 12:39 12:39 12:39 WBC 5.4 (4.0-10.5) K/mm3 RBC 4.88 (4.1-5.6) M/mm3 Hgb 14.6 (12.5-18.0) gm/dl Hct 44.4 (42-50) % MCV 91.0 (78-100) fl MCH 29.9 (26-32) pg MCHC 32.9 (32-36) g/dl RDW 16.6 H (11.5-14.0) % Plt Count 258 (150-450) K/mm3 MPV 9.8 (7.5-11.0) fl Gran % 54.8 (36.0-66.0) % Eos # (Auto) 0.26 (0-0.5) Absolute Lymphs (auto) 1.49 (1.0-4.6) Absolute Monos (auto) 0.66 (0.0-1.3) Lymphocytes % 27.5 (24.0-44.0) % Monocytes % 12.2 H (0.0-12.0) % Eosinophils % 4.8 (0.00-5.0) % Basophils % 0.7 (0.0-0.4) % Absolute Granulocytes 2.97 (1.4-6.9) Basophils # 0.04 (0-0.4) Sodium 137 (137-145) mmol/L Potassium 4.5 (3.5-5.1) mmol/L Chloride 106 (98-107) mmol/L Carbon Dioxide 22 (22-30) mmol/L Anion Gap 13.6 (5-15) MEQ/L BUN 12 (9-20) mg/dL Creatinine 0.57 L (0.66-1.25) mg/dL Estimated GFR > 60.0 ML/MIN Glucose 117 H (74-106) mg/dL Lactic Acid (0.4-2.0) Calcium 9.5 (8.4-10.2) mg/dL Total Bilirubin 0.80 (0.2-1.3) mg/dL AST 34 (17-59) U/L ALT 12 (0-50) U/L Alkaline Phosphatase 102 (38-126) U/L Troponin I < 0.012 (0.000-0.034) ng/mL NT-Pro-B Natriuret Pep 974 H (0-900) pg/mL Serum Total Protein 6.9 (6.3-8.2) g/dL Albumin 3.5 (3.5-5.0) g/dL Prealbumin (17.6-36.0) mg/dL Urinalys Dipstick Clnc Urine Color (YELLOW) Urine Appearance (CLEAR) Urine pH (5-6) Ur Specific Horton (1.005-1.025) POC Urine Protein Conf (Negative) Urine Ketones (NEGATIVE) Urine Nitrite (NEGATIVE) Urine Bilirubin (NEGATIVE) Urine Urobilinogen (0-1) mg/dL Urine Leukocytes (NEGATIVE) Urine WBC (Auto) (0-5) /HPF Urine RBC (Auto) (0-2) /HPF U Epithel Cells (Auto) (FEW) /HPF Urine Bacteria (Auto) (NEGATIVE) /HPF Urine RBC (0-5) Cali/ul Ur Culture Indicated? Urine Glucose (NEGATIVE) mg/dL Urine Opiates Level (NEGATIVE) Ur Methadone (NEGATIVE) Urine Barbiturates (NEGATIVE) Ur Phencyclidine (PCP) (NEGATIVE) Urine Amphetamine (NEGATIVE) U Benzodiazepine Level (NEGATIVE) Urine Cocaine (NEGATIVE) Urine Marijuana (THC) (NEGATIVE) Influenza Type A Ag (NEGATIVE) Influenza Type B Ag (NEGATIVE) RSV (PCR) (Negative) SARS-CoV-2 (PCR) (NEGATIVE) 12/17/21 12/17/21 12/17/21 Range/Units 12:39 13:28 13:39 WBC (4.0-10.5) K/mm3 RBC (4.1-5.6) M/mm3 Hgb (12.5-18.0) gm/dl Hct (42-50) % MCV (78-100) fl MCH (26-32) pg MCHC (32-36) g/dl RDW (11.5-14.0) % Plt Count (150-450) K/mm3 MPV (7.5-11.0) fl Gran % (36.0-66.0) % Eos # (Auto) (0-0.5) Absolute Lymphs (auto) (1.0-4.6) Absolute Monos (auto) (0.0-1.3) Lymphocytes % (24.0-44.0) % Monocytes % (0.0-12.0) % Eosinophils % (0.00-5.0) % Basophils % (0.0-0.4) % Absolute Granulocytes (1.4-6.9) Basophils # (0-0.4) Sodium (137-145) mmol/L Potassium (3.5-5.1) mmol/L Chloride (98-107) mmol/L Carbon Dioxide (22-30) mmol/L Anion Gap (5-15) MEQ/L BUN (9-20) mg/dL Creatinine (0.66-1.25) mg/dL Estimated GFR ML/MIN Glucose (74-106) mg/dL Lactic Acid (0.4-2.0) Calcium (8.4-10.2) mg/dL Total Bilirubin (0.2-1.3) mg/dL AST (17-59) U/L ALT (0-50) U/L Alkaline Phosphatase (38-126) U/L Troponin I < 0.012 (0.000-0.034) ng/mL NT-Pro-B Natriuret Pep (0-900) pg/mL Serum Total Protein (6.3-8.2) g/dL Albumin (3.5-5.0) g/dL Prealbumin (17.6-36.0) mg/dL Urinalys Dipstick Clnc MAIN LAB Urine Color YELLOW (YELLOW) Urine Appearance CLEAR (CLEAR) Urine pH 6.5 (5-6) Ur Specific Horton 6.5 (1.005-1.025) POC Urine Protein Conf 100 (Negative) Urine Ketones NEGATIVE (NEGATIVE) Urine Nitrite NEGATIVE (NEGATIVE) Urine Bilirubin NEGATIVE (NEGATIVE) Urine Urobilinogen 0.2 (0-1) mg/dL Urine Leukocytes NEGATIVE (NEGATIVE) Urine WBC (Auto) 16-25 (0-5) /HPF Urine RBC (Auto) >101 (0-2) /HPF U Epithel Cells (Auto) NONE (FEW) /HPF Urine Bacteria (Auto) RARE (NEGATIVE) /HPF Urine RBC LARGE (0-5) Cali/ul Ur Culture Indicated? YES Urine Glucose NEGATIVE (NEGATIVE) mg/dL Urine Opiates Level (NEGATIVE) Ur Methadone (NEGATIVE) Urine Barbiturates (NEGATIVE) Ur Phencyclidine (PCP) (NEGATIVE) Urine Amphetamine (NEGATIVE) U Benzodiazepine Level (NEGATIVE) Urine Cocaine (NEGATIVE) Urine Marijuana (THC) (NEGATIVE) Influenza Type A Ag NEGATIVE (NEGATIVE) Influenza Type B Ag NEGATIVE (NEGATIVE) RSV (PCR) NEGATIVE (Negative) SARS-CoV-2 (PCR) NEGATIVE (NEGATIVE) 12/17/21 12/17/21 12/17/21 Range/Units 14:00 15:00 17:21 WBC (4.0-10.5) K/mm3 RBC (4.1-5.6) M/mm3 Hgb (12.5-18.0) gm/dl Hct (42-50) % MCV (78-100) fl MCH (26-32) pg MCHC (32-36) g/dl RDW (11.5-14.0) % Plt Count (150-450) K/mm3 MPV (7.5-11.0) fl Gran % (36.0-66.0) % Eos # (Auto) (0-0.5) Absolute Lymphs (auto) (1.0-4.6) Absolute Monos (auto) (0.0-1.3) Lymphocytes % (24.0-44.0) % Monocytes % (0.0-12.0) % Eosinophils % (0.00-5.0) % Basophils % (0.0-0.4) % Absolute Granulocytes (1.4-6.9) Basophils # (0-0.4) Sodium (137-145) mmol/L Potassium (3.5-5.1) mmol/L Chloride (98-107) mmol/L Carbon Dioxide (22-30) mmol/L Anion Gap (5-15) MEQ/L BUN (9-20) mg/dL Creatinine (0.66-1.25) mg/dL Estimated GFR ML/MIN Glucose (74-106) mg/dL Lactic Acid 1.5 (0.4-2.0) Calcium (8.4-10.2) mg/dL Total Bilirubin (0.2-1.3) mg/dL AST (17-59) U/L ALT (0-50) U/L Alkaline Phosphatase (38-126) U/L Troponin I (0.000-0.034) ng/mL NT-Pro-B Natriuret Pep (0-900) pg/mL Serum Total Protein (6.3-8.2) g/dL Albumin (3.5-5.0) g/dL Prealbumin 12.13 L (17.6-36.0) mg/dL Urinalys Dipstick Clnc Urine Color (YELLOW) Urine Appearance (CLEAR) Urine pH (5-6) Ur Specific Horton (1.005-1.025) POC Urine Protein Conf (Negative) Urine Ketones (NEGATIVE) Urine Nitrite (NEGATIVE) Urine Bilirubin (NEGATIVE) Urine Urobilinogen (0-1) mg/dL Urine Leukocytes (NEGATIVE) Urine WBC (Auto) (0-5) /HPF Urine RBC (Auto) (0-2) /HPF U Epithel Cells (Auto) (FEW) /HPF Urine Bacteria (Auto) (NEGATIVE) /HPF Urine RBC (0-5) Cali/ul Ur Culture Indicated? Urine Glucose (NEGATIVE) mg/dL Urine Opiates Level NEGATIVE (NEGATIVE) Ur Methadone NEGATIVE (NEGATIVE) Urine Barbiturates NEGATIVE (NEGATIVE) Ur Phencyclidine (PCP) NEGATIVE (NEGATIVE) Urine Amphetamine NEGATIVE (NEGATIVE) U Benzodiazepine Level NEGATIVE (NEGATIVE) Urine Cocaine NEGATIVE (NEGATIVE) Urine Marijuana (THC) NEGATIVE (NEGATIVE) Influenza Type A Ag (NEGATIVE) Influenza Type B Ag (NEGATIVE) RSV (PCR) (Negative) SARS-CoV-2 (PCR) (NEGATIVE) 12/17/21 12/18/21 12/18/21 Range/Units 18:15 05:15 05:30 WBC 5.3 (4.0-10.5) K/mm3 RBC 4.55 (4.1-5.6) M/mm3 Hgb 13.6 (12.5-18.0) gm/dl Hct 41.6 L (42-50) % MCV 91.4 (78-100) fl MCH 29.9 (26-32) pg MCHC 32.7 (32-36) g/dl RDW 16.4 H (11.5-14.0) % Plt Count 240 (150-450) K/mm3 MPV 9.2 (7.5-11.0) fl Gran % 40.6 (36.0-66.0) % Eos # (Auto) 0.27 (0-0.5) Absolute Lymphs (auto) 2.01 (1.0-4.6) Absolute Monos (auto) 0.80 (0.0-1.3) Lymphocytes % 38.3 (24.0-44.0) % Monocytes % 15.2 H (0.0-12.0) % Eosinophils % 5.1 H (0.00-5.0) % Basophils % 0.8 (0.0-0.4) % Absolute Granulocytes 2.13 (1.4-6.9) Basophils # 0.04 (0-0.4) Sodium 136 L (137-145) mmol/L Potassium 4.1 (3.5-5.1) mmol/L Chloride 107 (98-107) mmol/L Carbon Dioxide 22 (22-30) mmol/L Anion Gap 11.6 (5-15) MEQ/L BUN 15 (9-20) mg/dL Creatinine 0.68 (0.66-1.25) mg/dL Estimated GFR > 60.0 ML/MIN Glucose 120 H (74-106) mg/dL Lactic Acid (0.4-2.0) Calcium 9.2 (8.4-10.2) mg/dL Total Bilirubin 0.60 (0.2-1.3) mg/dL AST 27 (17-59) U/L ALT 12 (0-50) U/L Alkaline Phosphatase 86 (38-126) U/L Troponin I < 0.012 (0.000-0.034) ng/mL NT-Pro-B Natriuret Pep (0-900) pg/mL Serum Total Protein 6.7 (6.3-8.2) g/dL Albumin 3.2 L (3.5-5.0) g/dL Prealbumin (17.6-36.0) mg/dL Urinalys Dipstick Clnc Urine Color (YELLOW) Urine Appearance (CLEAR) Urine pH (5-6) Ur Specific Horton (1.005-1.025) POC Urine Protein Conf (Negative) Urine Ketones (NEGATIVE) Urine Nitrite (NEGATIVE) Urine Bilirubin (NEGATIVE) Urine Urobilinogen (0-1) mg/dL Urine Leukocytes (NEGATIVE) Urine WBC (Auto) (0-5) /HPF Urine RBC (Auto) (0-2) /HPF U Epithel Cells (Auto) (FEW) /HPF Urine Bacteria (Auto) (NEGATIVE) /HPF Urine RBC (0-5) Cali/ul Ur Culture Indicated? Urine Glucose (NEGATIVE) mg/dL Urine Opiates Level (NEGATIVE) Ur Methadone (NEGATIVE) Urine Barbiturates (NEGATIVE) Ur Phencyclidine (PCP) (NEGATIVE) Urine Amphetamine (NEGATIVE) U Benzodiazepine Level (NEGATIVE) Urine Cocaine (NEGATIVE) Urine Marijuana (THC) (NEGATIVE) Influenza Type A Ag (NEGATIVE) Influenza Type B Ag (NEGATIVE) RSV (PCR) (Negative) SARS-CoV-2 (PCR) (NEGATIVE) Microbiology 12/17/21 13:28 Urine Culture - Preliminary Urine, Void <10K NORMAL SKIN HERBERT PROBABLE SKIN CONTAMINANT - Radiology Impressions Radiology Exams & Impressions: Radiology Procedures Category Date Time Status CHEST 1 VIEW (PORTABLE) Stat Exams 12/17/21 12:21 Completed Assessment/Plan (1) UTI (urinary tract infection) Current Visit: Yes Status: Acute Code(s): N39.0 - URINARY TRACT INFECTION, SITE NOT SPECIFIED (2) Failure to thrive in adult Current Visit: Yes Status: Acute (3) Atrial fibrillation Current Visit: No Status: Acute Code(s): I48.91 - UNSPECIFIED ATRIAL FIBRILLATION (4) CVA (cerebral infarction) Current Visit: No Status: Acute Qualifiers: Code(s): I63.9 - CEREBRAL INFARCTION, UNSPECIFIED
[2021-12-18] MEDS: LEVOFLOXACIN 750MG/150ML D5W 750 MG/150 ML BAG IV SCH (09:44)
[2021-12-18] MEDS: ELIQUIS 2.5 MG TABLET PO SCH ×2 (09:49→21:18)
[2021-12-18] MEDS: MIRTAZAPINE PO SCH (09:49)
[2021-12-18] MEDS: Toprol Xl 50 MG PO SCH (09:49)
[2021-12-18] MEDS: ECOTRIN 81 MG PO SCH (09:49)
[2021-12-18] MEDS: Vitamin B-12 500 MCG PO SCH (09:49)
[2021-12-18] MEDS: Flomax 0.4 MG PO SCH (09:49)
[2021-12-18] MEDS: Protonix 40MG Tablet PO SCH (09:49)
[2021-12-18] MEDS: Cymbalta 30 MG Capsule PO SCH (09:49)
[2021-12-18] MEDS: LIPITOR 40MG PO SCH (09:50)
[2021-12-18] MEDS: LOPID PO SCH ×2 (09:50→21:18)
[2021-12-18] MEDS ORDERED: NON-FORMULARY ITEM (Omeprazole [Omeprazole] 20 MG Capsule.Dr) PO SCH (10:00)
[2021-12-18] MEDS ORDERED: NON-FORMULARY ITEM (Atorvastatin Calcium [Lipitor] 80 MG Tablet) PO SCH (10:00)
[2021-12-18] MEDS ORDERED: NON-FORMULARY ITEM (Mirtazapine [Mirtazapine] 7.5 MG Tablet) PO SCH (10:00)
[2021-12-18] MEDS ORDERED: NON-FORMULARY ITEM (Cyanocobalamin (Vitamin B-12) [Vitamin B-12] 1,000 MCG Capsule) PO SCH (10:00)
[2021-12-19 06:30] LABS: Absolute Neutrophil Ct (ANC) 2.08 (1.4-6.9); Basophil (Absolute #) 0.02 (0-0.4); Eosinophil % 5.6 % (0.00-5.0); Eosinophil (Absolute #) 0.29 (0-0.5); Hematocrit 38.9 % (42-50); Hemoglobin 12.7 gm/dl (12.5-18.0); Lymphocytes % 42.5 % (24.0-44.0); Mean Cell Volume 91.5 fl (78-100); Mean Corpuscular Hemoglobin 29.9 pg (26-32); Mean Corpuscular Hgb Concent. 32.6 g/dl (32-36); Monocyte (Absolute #) 0.59 (0.0-1.3); Monocytes % 11.4 % (0.0-12.0); Neutrophil % 40.1 % (36.0-66.0); Platelet Count 261 K/mm3 (150-450); Red Blood Count 4.25 M/mm3 (4.1-5.6); White Blood Count 5.2 K/mm3 (4.0-10.5)
[2021-12-19 06:40] LABS: ALBUMIN 3.3 g/dL (3.5-5.0); ALKALINE PHOSPHATASE 78 U/L (38-126); ANION GAP 11.4 MEQ/L (5-15); BLOOD UREA NITROGEN 15 mg/dL (9-20); CHLORIDE 109 mmol/L (98-107); Carbon Dioxide 20 mmol/L (22-30); Creatinine 1 0.63 mg/dL (0.66-1.25); EST GLOMERULAR FILTRATION RATE > 60.0 ML/MIN; Glucose 102 mg/dL (74-106); Potassium 4.1 mmol/L (3.5-5.1); SGOT/AST 27 U/L (17-59); SGPT/ALT 11 U/L (0-50); SODIUM 136 mmol/L (137-145); Total Protein 6.6 g/dL (6.3-8.2)
[2021-12-19] MEDS: Sodium Chloride 0.9% 1000 ML 1,000 ML IV SCH (08:02)
[2021-12-19] MEDS: Protonix 40MG Tablet PO SCH (09:31)
[2021-12-19] MEDS: ECOTRIN 81 MG PO SCH (09:32)
[2021-12-19] MEDS: Cymbalta 30 MG Capsule PO SCH (09:32)
[2021-12-19] MEDS: Toprol Xl 50 MG PO SCH (09:32)
[2021-12-19] MEDS: Vitamin B-12 500 MCG PO SCH (09:32)
[2021-12-19] MEDS: ELIQUIS 2.5 MG TABLET PO SCH ×2 (09:32→21:16)
[2021-12-19] MEDS: MIRTAZAPINE PO SCH (09:33)
[2021-12-19] MEDS: Flomax 0.4 MG PO SCH (09:33)
[2021-12-19] MEDS: LOPID PO SCH ×2 (09:34→21:16)
[2021-12-19] MEDS: LIPITOR 40MG PO SCH (09:34)
[2021-12-19] MEDS: LEVOFLOXACIN 750MG/150ML D5W 750 MG/150 ML BAG IV SCH (09:35)
--- NOTE | 2021-12-19 11:04 | PCM.NOTE ---
Date and Time: 12/19/21 1103 Subjective Assessment: doing ok - Review of Systems Constitutional: No Fever, No Chills Eyes: No Symptoms Ears, Nose, & Throat: No Symptoms Respiratory: No Cough, No Short Of Breath Cardiac: No Chest Pain, No Edema, No Syncope Abdominal/Gastrointestinal: No Abdominal Pain, No Nausea, No Vomiting, No Diarrhea Genitourinary Symptoms: No Dysuria Musculoskeletal: No Back Pain, No Neck Pain Skin: No Rash Neurological: No Dizziness, No Focal Weakness, No Sensory Changes Psychological: No Symptoms Endocrine: No Symptoms Hematologic/Lymphatic: No Symptoms Immunological/Allergic: No Symptoms Objective Exam General Appearance: no apparent distress, alert Neurologic Exam: alert, oriented x 3, cooperative, normal mood/affect, nml cerebellar function, sensation nml, No motor deficits Skin Exam: normal color, warm, dry Eye Exam: PERRL, EOMI, eyes nml inspection Ears, Nose, Throat Exam: normal ENT inspection, pharynx normal, moist mucous membranes Neck Exam: normal inspection, non-tender, supple, full range of motion Respiratory Exam: normal breath sounds, lungs clear, No respiratory distress Cardiovascular Exam: regular rate/rhythm, normal heart sounds Gastrointestinal/Abdomen Exam: soft, No tenderness, No mass Extremity Exam: normal inspection, normal range of motion Back Exam: normal inspection, normal range of motion, No CVA tenderness, No vertebral tenderness Male Genitalia Exam: deferred Rectal Exam: deferred OBJECTIVE DATA Vital Signs: Vital Signs - 24 hr Temp Pulse Resp BP Pulse Ox 12/19/21 07:54 98.6 F 84 16 97/69 95 12/19/21 04:00 98.4 F 85 16 118/72 97 12/18/21 23:40 97.8 F 92 H 20 106/68 99 12/18/21 19:32 97.5 F 86 15 87/57 12/18/21 15:10 98 F 91 H 16 89/59 93 L 12/18/21 11:48 98.2 F 94 H 16 85/60 95 Pain Assessment - Last Documented Pain Intensity 0 Intake and Output: Intake & Output 12/16/21 12/17/21 12/18/21 12/19/21 11:59 11:59 11:59 11:59 Intake Total 1002 2574 Balance 1002 2574 Weight 103.8 kg Lab Results: Lab Results-Last 24 Hours 12/19/21 12/19/21 Range/Units 05:35 05:35 WBC 5.2 (4.0-10.5) K/mm3 RBC 4.25 (4.1-5.6) M/mm3 Hgb 12.7 (12.5-18.0) gm/dl Hct 38.9 L (42-50) % MCV 91.5 (78-100) fl MCH 29.9 (26-32) pg MCHC 32.6 (32-36) g/dl RDW 16.0 H (11.5-14.0) % Plt Count 261 (150-450) K/mm3 MPV 10.0 (7.5-11.0) fl Gran % 40.1 (36.0-66.0) % Eos # (Auto) 0.29 (0-0.5) Absolute Lymphs (auto) 2.20 (1.0-4.6) Absolute Monos (auto) 0.59 (0.0-1.3) Lymphocytes % 42.5 (24.0-44.0) % Monocytes % 11.4 (0.0-12.0) % Eosinophils % 5.6 H (0.00-5.0) % Basophils % 0.4 (0.0-0.4) % Absolute Granulocytes 2.08 (1.4-6.9) Basophils # 0.02 (0-0.4) Sodium 136 L (137-145) mmol/L Potassium 4.1 (3.5-5.1) mmol/L Chloride 109 H (98-107) mmol/L Carbon Dioxide 20 L (22-30) mmol/L Anion Gap 11.4 (5-15) MEQ/L BUN 15 (9-20) mg/dL Creatinine 0.63 L (0.66-1.25) mg/dL Estimated GFR > 60.0 ML/MIN Glucose 102 (74-106) mg/dL Calcium 9.0 (8.4-10.2) mg/dL Total Bilirubin 0.50 (0.2-1.3) mg/dL AST 27 (17-59) U/L ALT 11 (0-50) U/L Alkaline Phosphatase 78 (38-126) U/L Serum Total Protein 6.6 (6.3-8.2) g/dL Albumin 3.3 L (3.5-5.0) g/dL Radiology Exams: Radiology Procedures Category Date Time Status CHEST 1 VIEW (PORTABLE) Stat Exams 12/17/21 12:21 Completed Assessment/Plan (1) UTI (urinary tract infection) Current Visit: Yes Status: Acute Qualifiers: Urinary tract infection type: acute pyelonephritis Qualified Code(s): N10 - Acute pyelonephritis Code(s): N39.0 - URINARY TRACT INFECTION, SITE NOT SPECIFIED (2) Failure to thrive in adult Current Visit: Yes Status: Chronic (3) Atrial fibrillation Current Visit: No Status: Chronic Qualifiers: Atrial fibrillation type: unspecified Qualified Code(s): I48.91 - Unspecified atrial fibrillation Code(s): I48.91 - UNSPECIFIED ATRIAL FIBRILLATION (4) CVA (cerebral infarction) Current Visit: No Status: Acute Qualifiers: Code(s): I63.9 - CEREBRAL INFARCTION, UNSPECIFIED
[2021-12-19] MEDS: LIORESAL 10 MG PO PRN (17:51)
[2021-12-20] MEDS: ECOTRIN 81 MG PO SCH (09:18)
[2021-12-20] MEDS: Toprol Xl 50 MG PO SCH (09:19)
[2021-12-20] MEDS: MIRTAZAPINE PO SCH (09:19)
[2021-12-20] MEDS: ELIQUIS 2.5 MG TABLET PO SCH ×2 (09:19→21:56)
[2021-12-20] MEDS: Flomax 0.4 MG PO SCH (09:19)
[2021-12-20] MEDS: Vitamin B-12 500 MCG PO SCH (09:19)
[2021-12-20] MEDS: Cymbalta 30 MG Capsule PO SCH (09:19)
[2021-12-20] MEDS: Protonix 40MG Tablet PO SCH (09:19)
[2021-12-20] MEDS: LIPITOR 40MG PO SCH (09:20)
[2021-12-20] MEDS: LOPID PO SCH ×2 (09:20→21:56)
[2021-12-20] MEDS: LEVOFLOXACIN 750MG/150ML D5W 750 MG/150 ML BAG IV SCH (09:21)
--- NOTE | 2021-12-20 13:40 | PCM.NOTE ---
Date and Time: 12/20/21 1319 Subjective Assessment: Patient denies new complaints other than a little indigestion. Is eating and drinking well. PT worked with patient today and was 2 person heavy assist plus gait belt . This is chronic per Hx due to CVA. He wants to be admitted to [facility]. We are awaiting Insurance approval. Patient is on IV Levaquin for pneumonia and UTI. Denies cough or dyspnea. Objective Exam General Appearance: no apparent distress Neurologic Exam: alert, oriented x 3, normal mood/affect Skin Exam: warm, dry Respiratory Exam: diminished breath sounds (bases) Cardiovascular Exam: irregular (rate 80s) Gastrointestinal/Abdomen Exam: soft, normal bowel sounds, tenderness (mildly tender epigastrum,no guarding) OBJECTIVE DATA Vital Signs: Vital Signs - 24 hr Temp Pulse Resp BP Pulse Ox 12/20/21 11:32 97.9 F 88 16 100/64 97 12/20/21 07:22 97.9 F 93 H 16 122/73 93 L 12/20/21 04:00 97.9 F 80 16 118/60 95 12/20/21 00:00 98.0 F 79 16 128/61 94 L 12/19/21 19:57 97.9 F 90 16 142/57 94 L 12/19/21 16:00 97.8 F 104 H 16 88/54 95 Pain Assessment - Last Documented Pain Intensity 3 Intake and Output: Intake & Output 12/18/21 12/19/21 12/20/21 12/21/21 11:59 11:59 11:59 11:59 Intake Total 1002 2574 4080 680 Balance 1002 2574 4080 680 Weight 103.8 kg Lab Results: Lab Results-Last 24 Hours 12/19/21 Range/Units 21:27 POC Glucometer 156 H (74 to 106) mg/dL Multi-Disciplinary Progress Notes: Multi-Disciplinary Progress Notes 12/20/21 10:16 Case Management Note by Betsy Nguyen REFERRAL FAXED TO [facility]- HE IS AWARE OF REFERRAL Initialized on 12/20/21 10:16 - END OF NOTE 12/20/21 10:15 Case Management Note by Betsy Nguyen MEDIA SALES REPRESENTATIVE FROM [employer] CALLED FOR UPDATE. SHE WILL NEED NOTIFIED AT TIME OF DC AT [phone] Initialized on 12/20/21 10:15 - END OF NOTE Assessment/Plan (1) Pneumonia Status: Acute Qualifiers: Pneumonia type: due to unspecified organism Assessment & Plan: clinically improving on Levaquin Code(s): J18.9 - PNEUMONIA, UNSPECIFIED ORGANISM (2) UTI (urinary tract infection) Status: Acute Qualifiers: Urinary tract infection type: acute cystitis Hematuria presence: without hematuria Qualified Code(s): N30.00 - Acute cystitis without hematuria Assessment & Plan: clinically improved on Levaquin Code(s): N39.0 - URINARY TRACT INFECTION, SITE NOT SPECIFIED (3) Indigestion Status: Acute Assessment & Plan: patient states Tums works,vo given for Tums Code(s): K30 - FUNCTIONAL DYSPEPSIA
[2021-12-20] MEDS ORDERED: Tums EX 750 MG PO PRN (18:27)
[2021-12-20] MEDS: LIORESAL 10 MG PO PRN (21:59)
[2021-12-21] MEDS: Toprol Xl 50 MG PO SCH (09:25)
[2021-12-21] MEDS: Cymbalta 30 MG Capsule PO SCH (09:25)
[2021-12-21] MEDS: Vitamin B-12 500 MCG PO SCH (09:25)
[2021-12-21] MEDS: ELIQUIS 2.5 MG TABLET PO SCH ×2 (09:26→22:33)
[2021-12-21] MEDS: ECOTRIN 81 MG PO SCH (09:26)
[2021-12-21] MEDS: Flomax 0.4 MG PO SCH (09:27)
[2021-12-21] MEDS: Protonix 40MG Tablet PO SCH (09:29)
[2021-12-21] MEDS: LIPITOR 40MG PO SCH (09:30)
[2021-12-21] MEDS: MIRTAZAPINE PO SCH (09:31)
[2021-12-21] MEDS: LOPID PO SCH ×2 (09:32→22:33)
--- NOTE | 2021-12-21 09:44 | XRAY ---
Indication: Pneumonia. Comparison: December 17, 2021. Portable chest demonstrates grossly stable right mid to lower lung infiltrate/atelectasis with moderate effusion. Remaining heart and left lung unremarkable. New electronic device overlies right midlung.
[2021-12-21] MEDS ORDERED: Sodium Chloride 0.9% 10 ML FLUSH Syringe IV PRN (09:45)
[2021-12-21] MEDS: LEVOFLOXACIN 750MG/150ML D5W 750 MG/150 ML BAG IV SCH (10:30)
[2021-12-21] MEDS ORDERED: Sodium Chloride 0.9% 10 ML FLUSH Syringe IV SCH (14:00)
[2021-12-21] MEDS: LIORESAL 10 MG PO PRN (22:33)
[2021-12-22 04:50] LABS: Absolute Neutrophil Ct (ANC) 3.09 (1.4-6.9); Basophil (Absolute #) 0.03 (0-0.4); Eosinophil % 4.3 % (0.00-5.0); Hematocrit 38.6 % (42-50); Hemoglobin 12.5 gm/dl (12.5-18.0); Lymphocyte (Absolute #) 2.82 (1.0-4.6); Lymphocytes % 40.3 % (24.0-44.0); Mean Cell Volume 91.3 fl (78-100); Mean Corpuscular Hemoglobin 29.6 pg (26-32); Mean Corpuscular Hgb Concent. 32.4 g/dl (32-36); Mean Platelet Volume 9.6 fl (7.5-11.0); Monocyte (Absolute #) 0.75 (0.0-1.3); Monocytes % 10.7 % (0.0-12.0); Neutrophil % 44.3 % (36.0-66.0); Platelet Count 302 K/mm3 (150-450); Red Blood Count 4.23 M/mm3 (4.1-5.6); Red Cell Distribution Width 15.9 % (11.5-14.0)
[2021-12-22 05:17] LABS: ALBUMIN 3.2 g/dL (3.5-5.0); ALKALINE PHOSPHATASE 87 U/L (38-126); ANION GAP 12.5 MEQ/L (5-15); BLOOD UREA NITROGEN 17 mg/dL (9-20); CHLORIDE 108 mmol/L (98-107); Carbon Dioxide 22 mmol/L (22-30); Creatinine 1 0.72 mg/dL (0.66-1.25); EST GLOMERULAR FILTRATION RATE > 60.0 ML/MIN; Glucose 138 mg/dL (74-106); Potassium 3.7 mmol/L (3.5-5.1); SGOT/AST 26 U/L (17-59); SGPT/ALT 9 U/L (0-50); SODIUM 138 mmol/L (137-145); Total Protein 6.5 g/dL (6.3-8.2)
[2021-12-22] MEDS: ELIQUIS 2.5 MG TABLET PO SCH (09:14)
[2021-12-22] MEDS: LOPID PO SCH (09:14)
[2021-12-22] MEDS: ECOTRIN 81 MG PO SCH (09:14)
[2021-12-22] MEDS: Cymbalta 30 MG Capsule PO SCH (09:14)
[2021-12-22] MEDS: Protonix 40MG Tablet PO SCH (09:14)
[2021-12-22] MEDS: Vitamin B-12 500 MCG PO SCH (09:14)
[2021-12-22] MEDS: Toprol Xl 50 MG PO SCH (09:14)
[2021-12-22] MEDS: LIPITOR 40MG PO SCH (09:15)
[2021-12-22] MEDS: Flomax 0.4 MG PO SCH (09:15)
[2021-12-22] MEDS: MIRTAZAPINE PO SCH (09:15)
[2021-12-22] MEDS: LEVOFLOXACIN 750MG/150ML D5W 750 MG/150 ML BAG IV SCH (09:15)
[2021-12-22 11:48] VITALS: BP 109/66; PULSE 85; O2SAT 96
== END 2021-12-22 13:29 ==
LOC: ED 12:08 → MED SURG 16:04
PROVIDERS: ADMIT Family Medicine; ATTEND Family Medicine
DX: J18.9 Pneumonia, unspecified organism (principal); N39.0 Urinary tract infection, site not specified; R62.7 Adult failure to thrive; E78.00 Pure hypercholesterolemia, unspecified; I69.351 Hemiplegia and hemiparesis following cerebral infarction affecting right dominant side; I10 Essential (primary) hypertension; K30 Functional dyspepsia; I48.91 Unspecified atrial fibrillation; Z79.899 Other long term (current) drug therapy; Z20.828 Contact with and (suspected) exposure to other viral communicable diseases
CPT/HCPCS: 0241U; 36000; 36415; 71045; 80053; 80307; 81015; 82947; 83605; 83880; 84134; 84484; 85025; 87040; 87086; 93005; 97110; 97161; 97166; 97530; 99285; G0378; P9612; J1956; A9270-GY

== ENCOUNTER 2023-02-17 06:06 | Day surgery (SDC) | payer MEDICARE ==
[2023-02-17] MEDS ORDERED: Lactated Ringers 1,000 ML IV ONE (07:29)
[2023-02-17] MEDS ORDERED: Lactated Ringers 1,000 ML IV SCH (08:00)
[2023-02-17] MEDS ORDERED: DIPRIVAN 200 MG/20 ML IV ONE (08:01)
[2023-02-17] MEDS ORDERED: Xylocaine-Mpf 2% 5 Ml Vial ONE (08:01)
[2023-02-17] MEDS ORDERED: Versed 2 MG/2 ML Injection ONE (08:02)
--- NOTE | 2023-02-17 08:48 | OP ---
SURGERY DATE/TIME: 02/17/2023 0805 PREOPERATIVE DIAGNOSIS: Screening exam. POSTOPERATIVE DIAGNOSIS: Small ascending colon polyp. PROCEDURE: Colonoscopy with cold forceps biopsy. SURGEON: Dr. Stone. ANESTHESIA: MAC. Medications given by anesthesia department. HISTORY: The patient is a 62-year-old white male patient presenting now for screening colonoscopy. The patient reports that he had an examination previously but could not tell me exactly how long it had been. It is important to note that the patient has had two to three previous strokes and has expressive aphasia. He was appraised of the risks of the procedure including the risk of perforation, phlebitis, untoward reaction to medication, bleeding and missed lesions. The patient verbalized his understanding and desired to have the procedure performed. DESCRIPTION OF PROCEDURE: The patient was given the medications by the anesthesia department. He had continuous pulse oximetry, ECG monitoring and intermittent blood pressure monitoring during the examination. He was placed in the left lateral decubitus position. A digital rectal examination was performed and revealed normal anal sphincter tone and no masses and normal prostate. The flexible Olympus pediatric colonoscope was used to intubate the rectum. A view of the colon was developed sequentially to the cecum. Upon insertion and withdrawal, including a retroflex view in the rectum was noted one small polyp measuring approximately 0.5 cm in size in the ascending colon and this is destroyed and biopsied using pass of the cold forceps biopsy instrument. With no other mucosal lesions were encountered, the scope was removed from the patient who tolerated the procedure well and was sent back to OP recovery in good condition. The prep was noted to be fair.
[2023-02-17 09:16] VITALS: O2SAT 97
[2023-02-17 12:58] VITALS: BP 132/89; PULSE 69
== END 2023-02-17 12:55 ==
LOC: SDC 06:06
PROVIDERS: ATTEND Family Medicine
DX: Z12.11 Encounter for screening for malignant neoplasm of colon (principal); D12.2 Benign neoplasm of ascending colon; E11.9 Type 2 diabetes mellitus without complications
CPT/HCPCS: 82947; J2250; J2704